=== PATIENT | female | born 1950 | race Caucasian/White ===

== ENCOUNTER 2019-11-13 15:09 | Emergency (ER) | payer MEDICARE, MEDICAID, SELFPAY ==
--- NOTE | ~2019-11-13 | XR_ITS ---
EXAMINATION: XR hip RT min 3V w AP pelvis EXAM DATE: 11/13/2019 16:18 INDICATION: Initial encounter following injury, with pain of the pelvis, right hip. TECHNIQUE: Right hip frontal, crosstable lateral and 'frog-leg' projections for interpretation. Front al projection pelvis. There is no prior study for comparison. FINDINGS: Status post total right hip arthroplasty. There are some screw tracks identified along the mid aspect of the femur from prior hardware. There are no acute fractures or dislocations identified. There is no subcutaneous gas. The soft tissue is unremarkable. IMPRESSION: Intact right hip arthroplasty. Reviewed, dictated and finalized at location A.
--- NOTE | ~2019-11-13 | CT_ITS ---
EXAMINATION: CT brain wo con, CT cervical spine wo con EXAM DATE: 11/13/2019 16:06 INDICATION: Fall, head injury, neck pain. TECHNIQUE: Spiral CT of the head was performed without contrast. Axial, coronal and sagittal images were reviewed. Spiral CT of the cervical spine was performed without contrast. Axial images were rev iewed. Coronal and sagittal reformatted images were also reviewed. The dose-length product (DLP) fo r this examination was 605.33 (accession [id number]), 218.79 (accession [id number]) mGy-cm. The exposure was tailored according to patient size, and iterative reconstruction (ASIR) was used as additional dose reduction technique. There is no prior study for comparison. FINDINGS: HEAD CT: There is no acute intraparenchymal hemorrhage. No evidence of intraparenchymal brain mass l esion. No evidence of acute infarction. There is moderate prominence of the sulci and ventricles rel ated to cerebral atrophy. There is intracranial carotid arteriosclerosis. There is no mass effect or midline shift. There is no obstructive hydrocephalus suspected. There are no extra-axial collect ions. There are no acute calvarial fractures. The orbits are unremarkable. Soft tissue is unremark able. The visualized sinuses and mastoid air cells are well aerated. CERVICAL CT: There is no evidence of acute cervical fracture. The odontoid process is intact. Pre- dens space is normal. Prevertebral soft tissue is normal. There are no soft tissue abnormalities id entified. There is no disc space widening or traumatic vertebral body subluxation suspected. There is moderate disc disease from C3 through C7. Up to moderate arthropathy. A detailed level by level e valuation of spondylosis can be added as addendum if requested. IMPRESSION: 1. No acute intracranial or cervical findings. 2. Moderate cervical spondylosis. Reviewed, dictated and finalized at location A. IMPRESSION: 1. No acute intracranial or cervical findings. 2. Moderate cervical spondylosis.
--- NOTE | ~2019-11-13 | XR_ITS ---
EXAMINATION: XR chest 2V EXAM DATE: 11/13/2019 16:19 INDICATION: Right upper anterior chest wall pain after fall. TECHNIQUE: Frontal and lateral projections of the chest obtained and reviewed. Comparison is made to prior examination from 04/12/2013. FINDINGS: The lungs are clear. There are no pleural effusions. The cardiomediastinal silhouette is within normal limits. There is no pneumothorax suspected. There are bony degenerative changes. IMPRESSION: No acute cardiopulmonary findings. Reviewed, dictated and finalized at location A.
--- NOTE | ~2019-11-13 | XR_ITS ---
EXAMINATION: XR ribs RT 2V EXAM DATE: 11/13/2019 17:01 INDICATION: Initial encounter following injury, with pain of the right ribs. TECHNIQUE: Frontal projection of the upper right ribs, frontal projection of the lower right ribs, ob lique projection of the right ribs. FINDINGS: There is contour distortion to the right 10th rib anterolaterally, probably age indetermina te fracture. No other suspicious findings. Consider educating patient that even if there is a radiogr aphically occult nondisplaced rib fracture, there is no specific treatment other than to refrain from activity that prevents healing. IMPRESSION: Probable age indeterminate right 10th rib fracture anterolaterally. Reviewed, dictated and finalized at location A. IMPRESSION: Probable age indeterminate right 10th rib fracture anterolaterally .
[2019-11-13 15:10] VITALS: BP 117/76; PULSE 96; RESP 22; TEMP 36.6; O2SAT 97
--- NOTE | 2019-11-13 15:32 | PC.NURSE ---
pt placed in C collar after triage for precautions before CT scans.
[2019-11-13] MEDS: ACETAMINOPHEN 500 MG TABLET 1000 MG PO (17:22)
--- NOTE | 2019-11-13 18:10 | ED.FALL ---
HPI - Fall General Chief Complaint: Fall Stated Complaint: fall Time Seen by Provider: 11/13/19 16:39 Source: patient Mode of arrival: ambulatory Limitations: no limitations History of Present Illness HPI Narrative: This is a 69 year old female that presents to the ER for a fall yesterday. Reports she was walking her dog and the dog jerked the leash. Reports she fell onto her right side. Reports since she has had neck pain the is on the right side and feels stiff. Also reports right sided rib pain and right hip pain. Also reports hitting her head. Denies prodromal symptoms, loss of consciousness, vision changes, vomiting, shortness of breath, weakness or numbness. Related Data Allergies Allergy/AdvReac Type Severity Reaction Status Date / Time influenza virus vaccine, Allergy Severe Hives / Verified 11/13/19 17:02 specific Red Face NSAIDS (Non-Steroidal Allergy Mild Unknown Verified 11/13/19 17:02 Anti-Inflamma INFLAMMATORY DRUGS Allergy Unknown TONGUE Uncoded 11/13/19 17:02 SWELLS Review of Systems Review of Systems: Narrative: CONSTITUTIONAL: Denies fever EYES: Denies visual changes CARDIOVASCULAR: Reports chest pain RESPIRATORY: Denies dyspnea. GASTROINTESTINAL: Denies vomiting MUSCULOSKELETAL: Reports joint pain and myalgia. Denies back pain NEUROLOGIC: Denies headache, numbness, or weakness. All systems reviewed & are unremarkable except as noted in HPI and below PMFSH Past Medical History Medical History (Updated 11/13/19 @ 18:20 by Lindsey Carrillo PA-C) History of diabetes mellitus History of hyperlipidemia History of hypertension Family History Family History (Updated 02/17/14 @ 07:13 by DOCTOR UNKNOWN) Mother Family history of Alzheimer's disease Father Family history of emphysema Social History Social History Smoking status: Never smoker Second hand tobacco smoke exposure: Yes Alcohol intake: never Gender identity (if verbalized by the patient): Female Exam Narrative: Exam Narrative: GENERAL: Well-appearing, well-nourished, and in no acute distress. HEAD: Normocephalic, atraumatic. EYES: PERRLA and EOMI. ENT: Nares clear, no rhinorrhea or epistaxis. Mucous membranes moist. Oropharynx without tonsillar hypertrophy exudate or other lesions. Bilateral TMs pearly colón non-bulging NECK: Supple. No adenopathy or masses. No midline spinal tenderness CHEST: Clear to auscultation. No respiratory distress. No wheezes rales or rhonchi. Tender palpation of right anterior/lateral chest HEART: Regular rate and rhythm. No murmur heard. Normal peripheral pulses. BACK: No midline spinal tenderness EXTREMITIES: Normal range of motion. No edema or obvious deformity. Strength equal in bilateral upper and lower extremities SKIN: Warm, dry, no rash. NEURO: No focal deficits. Alert and oriented x3. Cranial nerves II through XII grossly intact PSYCH: Normal mood and affect Course Vital Signs Vital signs: Vital Signs Temperature 97.9 F 11/13/19 15:10 Pulse Rate 96 11/13/19 15:10 Respiratory Rate 22 H 11/13/19 15:10 Blood Pressure 117/76 11/13/19 15:10 Pulse Oximetry 97 11/13/19 15:10 Temperature 97.9 F 11/13/19 15:10 Pulse Rate 96 11/13/19 15:10 Respiratory Rate 22 H 11/13/19 15:10 Blood Pressure 117/76 11/13/19 15:10 Pulse Oximetry 97 11/13/19 15:10 MDM - Fall MDM Narrative Medical decision making narrative: Patient presents the emergency department after a fall yesterday with neck pain, right-sided rib pain, and right hip pain. Also reports a head injury. Denies loss of consciousness. Patient is neurologically intact. CT scan of the brain and cervical spine is without acute changes. Right hip/pelvis x-rays without acute findings. Right-sided rib/chest x-ray shows an age-indeterminate right 10th rib fracture anterior laterally. Patient given incentive spirometer. She was given a dose of Valium with improvement in neck pain. Patient was instr
[2019-11-13 18:23] VITALS: BP 132/80; PULSE 80; RESP 20; TEMP 36.7; O2SAT 99
== END 2019-11-13 18:24 | disposition home or self-care (01) ==
PROVIDERS: Emergency Provider Emergency Medicine
DX: M54.2 Cervicalgia (principal); S22.31XA Fracture of one rib, right side, initial encounter for closed fracture; E11.9 Type 2 diabetes mellitus without complications; E78.5 Hyperlipidemia, unspecified; I10 Essential (primary) hypertension; M47.812 Spondylosis without myelopathy or radiculopathy, cervical region; Y93.K1 Activity, walking an animal; Z79.84 Long term (current) use of oral hypoglycemic drugs; Z96.641 Presence of right artificial hip joint; W18.39XA Other fall on same level, initial encounter
CPT/HCPCS: 70450; 71046; 71100; 72125; 73502; 96372; 99284; A9270; J3360; L0140

== ENCOUNTER 2019-11-16 08:31 | Inpatient (IN) | payer MEDICARE, MEDICAID, SELFPAY ==
[2019-11-16] VITALS (21 sets, daily range): BP systolic 100–135; BP diastolic 57–87; PULSE 76–97; RESP 11–28; TEMP 36.9–37.3; O2SAT 91–100
--- NOTE | ~2019-11-16 | XR_ITS ---
EXAMINATION: XR knee RT min 4V DATE: 11/16/2019 09:35 INDICATION: Right knee injury. TECHNIQUE: 4 views of right knee were obtained. COMPARISON: Right knee radiographs 07/13/2013 FINDINGS: There is a total right knee arthroplasty in near-anatomic alignment. No periprosthetic luce ncy to suggest loosening or infection. No acute fracture. There is an old healed fracture deformity o f distal femoral metaphysis with malunion. Osteopenia is noted. No knee joint effusion. IMPRESSION: 1. Total right knee arthroplasty in near-anatomic alignment. 2. Old healed fracture of distal femoral metaphysis with malunion. Reviewed, dictated and finalized at location A.
--- NOTE | ~2019-11-16 | XR_ITS ---
XR lumbar spine 2-3V 11/16/2019 09:36 Indication: Low back pain after fall Procedure: 3 views lumbar spine Comparison: 07/13/2013 Findings: Mild dextroscoliosis centered at L2. There is disc narrowing at L2-3 through L5-S1. There a re fusion changes at L5-S1, stable. There has been progression of loss of disc height at L2-3, L3-4 a nd L4-5. There is grade 1 spondylolisthesis at L4-5. No acute fracture or traumatic malalignment. The re is right total hip arthroplasty. Impression: 1: Progression of moderate-severe lumbar spondylosis with spinal fusion at L5-S1. Reviewed, dictated and finalized at location A. Impression: 1: Progression of moderate-severe lumbar spondylosis with spinal fusion at L5-S 1.
--- NOTE | ~2019-11-16 | XR_ITS ---
[[id number] ] INDICATION: Right rib pain after fall TECHNIQUE: Frontal projection of the upper right ribs, frontal projection of the lower right ribs, ob lique projection of all the right ribs, frontal inspiratory chest x-ray for interpretation. FINDINGS: There are no displaced rib fractures identified. There are no soft tissue abnormality see n. The there is right basilar airspace disease which may represent atelectasis or developing pneumon ia. IMPRESSION: 1:No displaced rib fractures. 2:Right basilar airspace disease, atelectasis versus pneumonia. Reviewed, dictated and finalized at location A.
--- NOTE | ~2019-11-16 | CT_ITS ---
EXAMINATION: CT abdomen pelvis wo con DATE: 11/16/2019 13:25 INDICATION: Abdominal pain. TECHNIQUE: Computed tomography (CT) of the abdomen and pelvis was performed without intravenous contr ast. Automated exposure control and iterative reconstruction technique were employed. The dose-length product was 567.13 mGy-cm. COMPARISON: CT abdomen and pelvis 12/01/2008 FINDINGS: The visualized portions of the lung bases demonstrate mild atelectasis and mild chronic int erstitial lung disease. No pleural effusion. The heart size is normal. No pericardial effusion. There is a moderate-sized sliding hiatal hernia. The liver, gallbladder, pancreas, adrenal glands, and kid neys are normal. There are changes of splenectomy. There are no dilated loops of bowel. The appendix is not visualized. There are no pathologically enlarged lymph nodes. There is no free intraperitoneal fluid. There is a total right hip arthroplasty. There are changes of anterior and posterior fusion p rocedures at L5-S1. There is severe lumbar spondylosis. IMPRESSION: 1. Moderate-sized sliding hiatal hernia. 2. Mild chronic interstitial lung disease. Reviewed, dictated and finalized at location A.
--- NOTE | ~2019-11-16 | XR_ITS ---
EXAMINATION: XR knee LT min 4V DATE: 11/16/2019 09:35 INDICATION: Left knee injury. TECHNIQUE: 4 views of left knee were obtained. COMPARISON: Left knee radiographs 10/28/2013 FINDINGS: Bone alignment is normal. No fracture. There is mild osteoarthritis of medial and patellofe moral compartments and moderate osteoarthritis of lateral compartment. No knee joint effusion. IMPRESSION: 1. Moderate left knee osteoarthritis. Reviewed, dictated and finalized at location A.
--- NOTE | ~2019-11-16 | CT_ITS ---
EXAMINATION: CT brain wo con DATE: 11/16/2019 09:11 INDICATION: Head injury. TECHNIQUE: Computed tomography (CT) of the head was performed without intravenous contrast. The mA wa s adjusted according to patient size. Iterative reconstruction technique was employed. The dose-lengt h product was 605.33 mGy-cm. COMPARISON: Head CT 11/13/2019 FINDINGS: There is no intracranial hemorrhage, acute ischemic infarct, or intracranial mass lesion. T he ventricles are normal in size. There is mild mucosal thickening in the ethmoid sinuses. The mastoi d air cells are normal. IMPRESSION: 1. Normal brain. Reviewed, dictated and finalized at location A. IMPRESSION: 1. Normal brain.
--- NOTE | 2019-11-16 08:36 | ECG_ITS ---
Measurements Intervals [place] Rate: 94 P: 47 IA: 163 QRS: 52 QRSD: 82 T: 61 QT: 340 QTc: 427 Interpretive Statements SINUS RHYTHM BASELINE ARTIFACT- II, III, AVF, V3-V6 BORDERLINE ECG Electronically Signed On 11-16-2019 14:19:55 CDT by Ephraim Hernandez D.O.
--- NOTE | 2019-11-16 08:56 | PC.NURSE ---
Pt states she had 5 falls last night and has all over pain. Pt states she has rib pain causing SOB. Pt states has abrasions to bilateral knees and L elbow. Pt states she has VAZQUEZ. Pt states she has been having increased falls over the last few weeks. Pt states she walks with cane or walker. Pt states she hit her head and had LOC.
--- NOTE | 2019-11-16 08:57 | ED.FALL ---
HPI - Fall General Chief Complaint: Fall Stated Complaint: KEITH FALLS - HIT HEAD Time Seen by Provider: 11/16/19 08:34 Source: RN notes reviewed History of Present Illness HPI Narrative: Patient presents emergency department from home for frequent falls. Patient states that over the past several days she has had several falls at home. She states that last night she had several falls after mopping her floor and then again fell in the bathroom. States she initially had to lay in the bathtub for a while but then was able to get herself out she notes pain to her bilateral knees as well as her left elbow and her head. Patient states that secondary to these falls and generalized weakness she came to the emergency department today she denies any recent illness denies any fevers or chills chest pain shortness of breath abdominal pain nausea vomiting or any other symptoms Related Data Home Medications Medication Instructions Recorded Confirmed atorvastatin 80 mg PO HS 11/16/19 11/16/19 clonazepam 1 mg PO TID 11/16/19 11/16/19 cyclobenzaprine 10 mg PO TID PRN 11/16/19 11/16/19 duloxetine 20 mg PO DAILY 11/16/19 11/16/19 lisinopril-hydrochlorothiazide 1 tablet PO BID 11/16/19 11/16/19 metformin 1,000 mg PO BID 11/16/19 11/16/19 omeprazole 40 mg PO BID 11/16/19 11/16/19 oxycodone-acetaminophen 1 tablet PO Q4H PRN 11/16/19 11/16/19 tramadol 50 mg PO PRN 11/16/19 11/16/19 Allergies Allergy/AdvReac Type Severity Reaction Status Date / Time influenza virus vaccine, Allergy Severe Hives / Verified 11/13/19 17:02 specific Red Face NSAIDS (Non-Steroidal Allergy Mild Unknown Verified 11/13/19 17:02 Anti-Inflamma INFLAMMATORY DRUGS Allergy Unknown TONGUE Uncoded 11/13/19 17:02 GARY Review of Systems Review of Systems: Narrative: Gen.: Denies fevers or chills Eyes: Denies eye pain or visual change ENT: Denies congestion Respiratory: Denies shortness of breath or cough CV: Denies chest pain or palpitations GI: Denies abdominal pain nausea, emesis or diarrhea denies burning, urgency, frequency or hematuria Musculoskeletal: See HPI Neuro: Denies numbness, tingling, reports weakness and frequent falls Skin: Denies rash Except as documented, all other systems reviewed and negative [facility] Past Medical History Medical History History of diabetes mellitus History of hyperlipidemia History of hypertension Family History Family History (Updated 02/17/14 @ 07:13 by DOCTOR UNKNOWN) Mother Family history of Alzheimer's disease Father Family history of emphysema Social History Social History Smoking status: Never smoker Second hand tobacco smoke exposure: Yes Alcohol intake: never Substance use: current Substance use type: marijuana Other substance usage details: For back pain once per week Gender identity (if verbalized by the patient): Female Spiritual care concerns: No Exam Narrative: Exam Narrative: APPEARANCE: No acute distress, nontoxic, resting in bed EYES: EOMI, Marcello HEENT: Normocephalic, atraumatic, oral mucosa dry Neck: Supple, no midline tenderness palpation full range of motion without pain RESPIRATORY: No respiratory distress Clear to auscultation bilaterally with no rhonchi wheezing or rales. CARDIOVASCULAR: Regular rate and rhythm without murmurs rubs or gallops. ABDOMINAL: Soft, nontender, nondistended, no rebound or guarding MUSCULOSKELETAl: Moves all extremities. No clubbing, cyanosis or edema. Tender palpation of the bilateral anterior knees with ecchymosis present no tenderness of bilateral hips or ankles, dorsalis pedis pulse 2+, mild tenderness over left elbow with full range of motion no tenderness of left wrist or shoulder radial pulse 2+ NEURO: Awake and alert x 3. Following commands, speech normal, no focal deficits SKIN:: Warm, dry. Skin abrasion over left lateral
[2019-11-16 09:09] LABS: Basophils Absolute Auto 0.1 K/mm3 (0.0-0.1); Basophils Percent Auto 0.5 % (0.2-1.2); Eosinophils Percent Auto 0.1 % (0-4.4); Hematocrit 37.6 % (37.0-47.0); Hemoglobin 12.5 g/dL (12.0-15.0); Immature Granulocyte Absolute 0.16 K/mm3 (0.00-0.031); Immature Granulocyte Percent A 0.7 % (0-0.5); Lymphocytes Absolute Auto 2.88 K/mm3 (0.9-3.2); Lymphocytes Percent Auto 13.1 % (18.3-44.2); Mean Corpuscular HGB Conc 33.2 g/dl (32-36); Mean Corpuscular Hemoglobin 30.4 pg (26-34); Mean Corpuscular Volume 91.5 fl (80-100); Mean Platelet Volume 10.1 fl (7.4-10.4); Monocytes Percent Auto 9.2 % (2.6-8.5); Neutrophils Absolute Auto 16.8 K/mm3 (1.3-6.7); Neutrophils Percent Auto 76.4 % (45.5-73.1); Platelet Count Result 487 k/mm3 (150-375); Red Blood Count 4.11 M/mm3 (4.2-5.4); White Blood Count 21.9 K/mm3 (4.5-10.0)
[2019-11-16 09:23] LABS: Partial Thromboplastin Time 23.6 SECONDS (22.3-36.8); Prothrombin Time 12.5 Seconds (11.1-14.7)
[2019-11-16 09:39] LABS: Albumin Level 4.5 g/dL (3.5-5.1); Alkaline Phosphatase 140 U/L (38-126); Aspartate Amino Transferase 64 U/L (14-36); Bilirubin,Total 0.4 mg/dL (0.2-1.3); Blood Urea Nitrogen 12 mg/dL (7-17); Carbon Dioxide 22 mmol/L (22-30); Chloride 101 mmol/L (98-107); Estimated CRCL calculation 67 ml/min; Estimated Glomerular Filt Rate > 60; Glucose 198 mg/dL (65-105); Potassium 3.9 mmol/L (3.4-5.0); Sodium 138 mmol/L (137-145)
[2019-11-16 09:56] LABS: Alanine Aminotransferase 31 U/L (4-35)
[2019-11-16 10:48] LABS: Creatine Kinase 774 U/L (30-135)
[2019-11-16 11:34] LABS: Add Urine Microscopic? NO; Appearance Urine Clear (Clear); Bilirubin Urine Negative (Negative); Blood Urine Negative (Negative); Color Urine Yellow (Yellow); Glucose Urine UA Negative (Negative); Ketones Urine Negative (Negative); Leukocyte Esterase Ur Negative LEU/UL (Negative); Mucus Urine Rare /lpf; Nitrate Urine Negative (Negative); Protein Urine Negative (Negative); Specific Grav Ur 1.016 (1.001-1.035); Squamous Epithelial Cell Urine Rare /hpf (Few); Urobilinogen Urine Negative mg/dL (<2.0); WBC Urine 0-3 /hpf
[2019-11-16 12:14] LABS: Lactic Acid Reflex 4.1 mmol/L (0.7-2.1)
[2019-11-16] MEDS: SODIUM CHLORIDE 0.9% IV 1,000 ML 999 ML IV CONT (12:55)
[2019-11-16] MEDS: SODIUM CHLORIDE 0.9% IV 1,000 ML 125 ML IV CONT ×2 (14:35→23:06)
[2019-11-16 14:54] LABS: Reflex Lactic Acid Yes or No Add Lactic
--- NOTE | 2019-11-16 14:58 | ADMGEN ---
This patient, Li De Los Santos, was admitted to [facility] Surg Room 332-02. Patient/family oriented to hospital policies and general routines including ID bracelet, bed and alarms, visiting hours, pain management, procedures, bathroom and other care routines, personal items, smoking policy, room service/diet, and visiting hours. Valuables list has been completed. Information on how to activate the Rapid Response Team has been discussed. Patient/Family are encouraged to report perceived risks to care and to ask questions if they do not understand what they are told or what they should do.
[2019-11-16 15:34] LABS: Lactic Acid 3.3 mmol/L (0.7-2.1)
--- NOTE | 2019-11-16 18:04 | PM.IMHP ---
H&P: HPI History of Present Illness Chief complaint: Severe sepsis community acquired pneumonia gait in Narrative: Li De Los Santos is a 69 year old female who lives at independent living alf facility. The patient came to the emergency room today because of frequent falls. Over the past several days she has had several falls at home. She denies having any fever but states that she had some chills. She had a nonproductive cough. 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 Patient stated that she mops up her dogs meds and she fell on the floor and fell again in the bathroom today. She has had initially did she late in the bathtub for a little bit and then she was unable to get herself up out of the bathtub she is very weak. She is having difficulty leaning forward and getting up. She complained of her knees hurting in her left elbow and her head. She has some generalized weakness. She is on chronic pain medication for chronic back pain. Her lactic was 4.1 and then 3.3. Random glucose 198. Total creatinine kinase 774. Patient was given IV fluids for the elevated lactic and started on Rocephin and azithromycin. Date of service 11/16/2019 Review of Systems Review of Systems: All systems reviewed & are unremarkable except as noted in HPI and below Constitutional: Constitutional: Reports as per HPI and Reports no additional constitutional complaints Eyes: Eyes: Reports as per HPI and Reports no additional eye complaints ENT: Reports system reviewed and no additional complaints, except as documented and Reports Normal hearing present Cardiovascular: Cardiovascular: Reports no additional cardiovascular complaints Respiratory: Respiratory: Reports no additional respiratory complaints and Reports no additional respiratory complaints Gastrointestinal: Gastrointestinal: Reports as per HPI and Reports no additional gastrointestinal complaints Musculoskeletal: Musculoskeletal: Reports no additional musculoskeletal complaints Integumentary/Breasts: Skin/Breast: Reports system reviewed and no additional complaints, except as docu and Reports as per HPI Neurologic: Reports system reviewed and no additional complaints, except as documented, Reports as per HPI and Reports Normal hearing present Psychiatric: Psychiatric: Reports no additional psychiatric complaints and Reports as per HPI Endocrine: Endocrine: Reports no additional endocrine complaints Hematologic/Lymphatic: Hematologic/Lymphatic: Reports no additional hematologic/lymphatic complaints Allergic/Immunologic: Allergic/Immunologic: Reports no additional allergic/immunologic complaints [facility] Past Medical History Medical History (Updated 05/26/20 @ 18:37 by Kimberlee Camejo NP) Anxiety Chronic pain Depression DM2 (diabetes mellitus, type 2) History of diabetes mellitus History of hyperlipidemia History of hypertension Hypertension Surgical History Surgical History (Updated 11/16/19 @ 18:23 by Kimberlee Camejo NP) H/O arthroscopy of left knee H/O hernia repair H/O splenectomy H/O: hysterectomy History of back surgery X3 History of section, classical History of left shoulder replacement History of total right knee replacement (TKR) Family History Family History (Updated 11/16/19 @ 18:24 by Kimberlee Camejo NP) Mother Family history of Alzheimer's disease Heart disease Father Family history of emphysema COPD (chronic obstructive pulmonary disease) Social History Social History (Updated 11/16/19 @ 18:28 by Kimberlee Camejo NP) Social History: The patient was never . And she had twin boys. She lives in a alf independent Living. 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 She is a full code. She never smoked. Does not use any alcohol or illicit drugs. However the patient states that she uses medical marijuana. She is disabled Smoking statu
[2019-11-16] MEDS: CLONAZEPAM 0.5 MG TAB 1 MG PO (18:55)
[2019-11-16] MEDS: PANTOPRAZOLE 40 MG TABLET PO (20:22)
[2019-11-16] MEDS: ENOXAPARIN 40 MG/0.4 ML SYRINGE SUB-Q (20:22)
[2019-11-16] MEDS: lisinopriL 20 MG TABLET PO (20:23)
[2019-11-16] MEDS: ATORVASTATIN 40 MG TABLET 80 MG PO (20:23)
[2019-11-16] MEDS: hydroCHLOROthiazide 12.5 MG CAPSULE PO (20:23)
[2019-11-17] VITALS (11 sets, daily range): BP systolic 100–120; BP diastolic 58–82; PULSE 68–85; RESP 16–20; TEMP 36.4–37.1; O2SAT 91–95
[2019-11-17] MEDS: SODIUM CHLORIDE 0.9% IV 1,000 ML 125 ML IV CONT ×2 (05:32→13:08)
[2019-11-17 05:55] LABS: Hemoglobin A1C 7.2 % (<5.7)
[2019-11-17 05:59] LABS: Basophils Absolute Auto 0.1 K/mm3 (0.0-0.1); Basophils Percent Auto 0.8 % (0.2-1.2); Eosinophils Absolute Auto 0.3 K/mm3 (0-0.3); Eosinophils Percent Auto 3.1 % (0-4.4); Immature Granulocyte Absolute 0.03 K/mm3 (0.00-0.031); Immature Granulocyte Percent A 0.3 % (0-0.5); Lymphocytes Absolute Auto 3.04 K/mm3 (0.9-3.2); Lymphocytes Percent Auto 27.8 % (18.3-44.2); Mean Corpuscular HGB Conc 33.3 g/dl (32-36); Mean Corpuscular Hemoglobin 30.1 pg (26-34); Mean Corpuscular Volume 90.4 fl (80-100); Mean Platelet Volume 9.5 fl (7.4-10.4); Monocytes Absolute Auto 1.3 K/mm3 (0.1-0.6); Monocytes Percent Auto 12.1 % (2.6-8.5); Neutrophils Absolute Auto 6.1 K/mm3 (1.3-6.7); Neutrophils Percent Auto 55.9 % (45.5-73.1); Platelet Count Result 425 k/mm3 (150-375); Red Blood Count 3.65 M/mm3 (4.2-5.4); Red Cell Distribution Width 14.1 % (11.5-14.5)
[2019-11-17 06:07] LABS: Alanine Aminotransferase 19 U/L (4-35); Albumin Level 3.4 g/dL (3.5-5.1); Alkaline Phosphatase 102 U/L (38-126); Aspartate Amino Transferase 40 U/L (14-36); Bilirubin,Total 0.5 mg/dL (0.2-1.3); Blood Urea Nitrogen 8 mg/dL (7-17); Carbon Dioxide 27 mmol/L (22-30); Chloride 104 mmol/L (98-107); Estimated CRCL calculation 67 ml/min; Estimated Glomerular Filt Rate > 60; Glucose 143 mg/dL (65-105); Potassium 3.7 mmol/L (3.4-5.0); Sodium 135 mmol/L (137-145)
[2019-11-17] MEDS: CLONAZEPAM 0.5 MG TAB 1 MG PO (08:15)
[2019-11-17] MEDS: PANTOPRAZOLE 40 MG TABLET PO ×2 (08:16→20:06)
[2019-11-17] MEDS: hydroCHLOROthiazide 12.5 MG CAPSULE PO ×2 (08:16→20:04)
[2019-11-17] MEDS: DULOXETINE HCL 20 MG CAPSULE.DR PO (08:16)
[2019-11-17] MEDS: lisinopriL 20 MG TABLET PO ×2 (08:16→20:07)
[2019-11-17 08:29] LABS: Glucose Point of Care 127 (65-105)
--- NOTE | 2019-11-17 09:51 | PM.IMPN ---
Progress Note: A&P Assessment and Plan (1) Community acquired pneumonia: Code(s): J18.9 - Pneumonia, unspecified organism Status: Acute Assessment and Plan: Chest x-ray reveals right basilar airspace disease. Patient endorses occasional nonproductive cough. She is afebrile. She has very mild leukocytosis. Her lactic acid is elevated at 3.3. She does not meet sirs criteria for sepsis as vitals are stable. Continue with azithromycin and ceftriaxone. Blood cultures are pending. Sputum cultures have been ordered but on collected. Continue albuterol as needed Continue gentle IV fluids (2) Suspected COVID-19 virus infection: Code(s): Z20.828 - Contact with and (suspected) exposure to other viral communicable diseases Status: Acute Assessment and Plan: Given symptoms and patient is a resident of a intermediate facility, she has been tested for COVID-19. She is afebrile and maintaining adequate oxygen saturation on room air Continue isolation precautions Await results of COVID-19 test Continue azithromycin and ceftriaxone Continue supportive care as above Proceed with IV fluids cautiously and monitor respiratory status Monitor CXR for progression (3) Lactic acidosis: Code(s): E87.2 - Acidosis Status: Acute Assessment and Plan: At presentation, her lactic acid was elevated at 4.1. It had decreased to 3.3 upon repeat on 11/16/2019. Patient is taking metformin which may have contributed. She was also likely dehydrated upon presentation, but appears euvolemic on exam at this time. She does not meet criteria for sepsis. She does not have elevated anion gap. Continue gentle IV fluids Continue to hold metformin Continue to monitor lactic acid level. (4) Fall: Qualifiers: Encounter type: initial encounter Qualified Code(s): W19.XXXA - Unspecified fall, initial encounter Code(s): W19.XXXA - Unspecified fall, initial encounter Status: Acute Assessment and Plan: Patient has had multiple falls. She was evaluated in this facility on 11/12 for a fall. She reports she fell a total of 5 times on 11/16/2019. She hit her head during her fall. She complains of knee pain and back pain. Head CT was normal. She is alert and oriented x4 with no altered mental status noted and nonfocal neuro exam. Bilateral knees were x-rayed with no acute findings. Lumbar spine x-ray revealed moderate to severe lumbar spondylosis with no acute fracture or trauma. She complains of weakness. PT and OT to evaluate and treat pending results of COVID test. Input is appreciated. Continue tramadol for moderate pain and oxycodone-acetaminophen for severe pain Supportive care including ice and heat as needed (5) Chronic pain: Code(s): G89.29 - Other chronic pain Status: Chronic Assessment and Plan: Patient has a history of chronic musculoskeletal pain and has had several surgeries to include knee replacement and spinal fusion. She has a home pain regimen including oxycodone-acetaminophen, tramadol, cyclobenzaprine, and Cymbalta. Continue pain scale as above. Continue cyclobenzaprine as needed and Cymbalta scheduled Continue supportive care as above (6) Hypertension: Qualifiers: Hypertension type: essential hypertension Qualified Code(s): I10 - Essential (primary) hypertension Code(s): I10 - Essential (primary) hypertension Status: Chronic Assessment and Plan: Blood pressures were reviewed and are acceptable. Blood pressure evaluated today and stable at 112/65. Continue with lisinopril and hydrochlorothiazide. (7) DM2 (diabetes mellitus, type 2): Code(s): E11.9 - Type 2 diabetes mellitus without complications Status: Acute Assessment and Plan: A1c on 11/17/2019 is 7.2. Blood sugars were reviewed. Blood sugar evaluated today and stable at 127. Continue Acc
--- NOTE | 2019-11-17 10:42 | PCPTNOTE ---
Hold PT - per PA-C - awaiting on COVID 19 results.
--- NOTE | 2019-11-17 10:43 | PCOTNOTE ---
Hold OT evaluation per PA until COVID testing results are in. Will attempt OT evaluation at later time.
[2019-11-17 11:08] LABS: Lactic Acid 1.4 mmol/L (0.7-2.1)
[2019-11-17] MEDS: INSULIN ASPART (*BKC) 100 UNITS/ML SUB-Q (12:07)
[2019-11-17 13:08] LABS: Glucose Point of Care 216 (65-105)
[2019-11-17 14:16] LABS: SARS-CoV-2 RNA PCR Negative
[2019-11-17 16:23] LABS: Glucose Point of Care 85 (65-105)
[2019-11-17] MEDS: ATORVASTATIN 40 MG TABLET 80 MG PO (20:06)
[2019-11-17] MEDS: ENOXAPARIN 40 MG/0.4 ML SYRINGE SUB-Q (20:07)
[2019-11-17 21:04] LABS: Glucose Point of Care 132 (65-105)
[2019-11-18] VITALS (7 sets, daily range): BP systolic 112–133; BP diastolic 64–82; PULSE 69–91; RESP 20; TEMP 36.4–36.7; O2SAT 91–96
[2019-11-18] MEDS: SODIUM CHLORIDE 0.9% IV 1,000 ML 125 ML IV CONT (00:01)
[2019-11-18 06:06] LABS: Basophils Absolute Auto 0.1 K/mm3 (0.0-0.1); Basophils Percent Auto 1.3 % (0.2-1.2); Eosinophils Absolute Auto 0.7 K/mm3 (0-0.3); Eosinophils Percent Auto 7.3 % (0-4.4); Hematocrit 32.5 % (37.0-47.0); Hemoglobin 10.6 g/dL (12.0-15.0); Immature Granulocyte Absolute 0.02 K/mm3 (0.00-0.031); Immature Granulocyte Percent A 0.2 % (0-0.5); Lymphocytes Absolute Auto 2.85 K/mm3 (0.9-3.2); Lymphocytes Percent Auto 30.5 % (18.3-44.2); Mean Corpuscular HGB Conc 32.6 g/dl (32-36); Mean Corpuscular Hemoglobin 30.1 pg (26-34); Mean Corpuscular Volume 92.3 fl (80-100); Mean Platelet Volume 9.3 fl (7.4-10.4); Monocytes Absolute Auto 1.3 K/mm3 (0.1-0.6); Neutrophils Absolute Auto 4.4 K/mm3 (1.3-6.7); Neutrophils Percent Auto 46.7 % (45.5-73.1); Platelet Count Result 404 k/mm3 (150-375); Red Blood Count 3.52 M/mm3 (4.2-5.4); Red Cell Distribution Width 14.2 % (11.5-14.5); White Blood Count 9.3 K/mm3 (4.5-10.0)
[2019-11-18 06:20] LABS: Alanine Aminotransferase 17 U/L (4-35); Albumin Level 3.1 g/dL (3.5-5.1); Alkaline Phosphatase 102 U/L (38-126); Aspartate Amino Transferase 41 U/L (14-36); Bilirubin,Total 0.4 mg/dL (0.2-1.3); Blood Urea Nitrogen 9 mg/dL (7-17); Calcium 7.8 mg/dL (8.4-10.2); Carbon Dioxide 29 mmol/L (22-30); Chloride 106 mmol/L (98-107); Creatine Kinase 365 U/L (30-135); Estimated CRCL calculation 58 ml/min; Estimated Glomerular Filt Rate > 60; Glucose 126 mg/dL (65-105); Potassium 3.5 mmol/L (3.4-5.0); Sodium 136 mmol/L (137-145)
[2019-11-18 06:23] LABS: Lactic Acid 0.9 mmol/L (0.7-2.1)
[2019-11-18 08:28] LABS: Glucose Point of Care 123 (65-105)
[2019-11-18] MEDS: SODIUM CHLORIDE 0.9% IV 1,000 ML 75 ML IV CONT (09:19)
[2019-11-18] MEDS: PANTOPRAZOLE 40 MG TABLET PO (09:21)
[2019-11-18] MEDS: lisinopriL 20 MG TABLET PO (09:21)
[2019-11-18] MEDS: hydroCHLOROthiazide 12.5 MG CAPSULE PO (09:21)
[2019-11-18] MEDS: DULOXETINE HCL 20 MG CAPSULE.DR PO (09:21)
[2019-11-18 12:16] LABS: Glucose Point of Care 119 (65-105)
[2019-11-18] MEDS: cefTRIAXone 1 GM VIAL IM (12:57)
[2019-11-18] MEDS: AZITHROMYCIN 250 MG TABLET 500 MG PO (12:57)
--- NOTE | 2019-11-18 15:50 | PM.DS ---
DS: Admitting Diagnosis Admitting Diagnosis Admitting Diagnosis: Pneumonia, unspecified organism DS: Discharge Diagnosis Discharge Diagnosis (1) Community acquired pneumonia: Code(s): J18.9 - Pneumonia, unspecified organism Status: Acute Assessment and Plan: She was treated with IV Ceftriaxone and Azithromycin. She will continue PO Cefdinir to complete a 7 day course and PO Azithromycin to complete a 5 day course. (2) COVID-19 ruled out: Code(s): Z03.818 - Encounter for observation for suspected exposure to other biological agents ruled out Status: Acute Assessment and Plan: She tested negative for COVID-19 on 11/16/19. (3) Lactic acidosis: Code(s): E87.2 - Acidosis Status: Acute Assessment and Plan: At presentation, her lactic acid was elevated at 4.1. Her CO2 was 22 without elevated anion gap. Lactic had improved to 1.4 and was 0.9 at time of discharge. Metformin was initially held but resumed at discharge. She will get a repeat BMP and lactic in one week and follow up with her PCP. (4) Fall: Qualifiers: Encounter type: initial encounter Qualified Code(s): W19.XXXA - Unspecified fall, initial encounter Code(s): W19.XXXA - Unspecified fall, initial encounter Status: Acute Assessment and Plan: She was evaluated by PT and OT and was consistent with her prior level of function. She did not require any ongoing therapy. We discussed fall precautions. (5) Chronic pain: Code(s): G89.29 - Other chronic pain Status: Chronic Assessment and Plan: Patient has a history of chronic musculoskeletal pain. She will continue her home pain regimen. (6) Hypertension: Qualifiers: Hypertension type: essential hypertension Qualified Code(s): I10 - Essential (primary) hypertension Code(s): I10 - Essential (primary) hypertension Status: Chronic Assessment and Plan: Blood pressures were reviewed and were well controlled on home regimen. Blood pressure was 112/64. (7) DM2 (diabetes mellitus, type 2): Code(s): E11.9 - Type 2 diabetes mellitus without complications Status: Acute Assessment and Plan: A1c on 11/17/2019 was 7.2. Blood sugars were reviewed and at target. She will continue her home glycemic regimen. (8) Anxiety: Code(s): F41.9 - Anxiety disorder, unspecified Status: Chronic Assessment and Plan: Stable during her stay. (9) Depression: Qualifiers: Depression Type: major depressive disorder Major depression recurrence: unspecified whether recurrent Code(s): F32.9 - Major depressive disorder, single episode, unspecified Status: Chronic Assessment and Plan: Stable during her stay. DS: Summary Hospital Course Reason for hospitalization: Fall Hospital Course: Date of admission: 11/16/2019 Date of discharge: 11/18/2019 Li De Los Santos is a 69-year-old female with a PMH significant for type 2 diabetes, HTN, chronic pain, and anxiety who presented to the emergency department on 11/16/2019 from home after having several falls in one evening. She reports a history of frequent falls. She was in her bathroom and fell while mopping the floor and she hit her head at this time. At presentation, WBC 21.9, platelets 487, lactic acid 4.1, no acute findings, bilateral knee x-ray with no acute osseous abnormality, lumbar spine x-ray with moderate to severe lumbar spondylosis with no acute fracture or trauma, and CXR revealing right basilar airspace disease. Additionally she was noted to have bilateral knee abrasion and skin avulsion on left elbow which was cleaned and bandaged. Given her symptoms, she was tested for COVID-19 and was found to be negative. She was admitted to the hospitalist service on 11/16/2019. She was treated for community-acquired pneumonia with IV antibiotics. She remained afebrile a
== END 2019-11-18 13:38 | DRG 194 ==
LOC: ANHED 12:08 → ANH3MEDSUR 13:21
PROVIDERS: Nurse Practitioner; Admitting Provider Family Medicine; Emergency Provider Emergency Medicine; PCP Family Medicine; Visit Provider Physician Assistant
DX: J18.9 Pneumonia, unspecified organism (principal); E87.2 Acidosis; Z20.828 Contact with and (suspected) exposure to other viral communicable diseases; W18.39XA Other fall on same level, initial encounter; G89.29 Other chronic pain; I10 Essential (primary) hypertension; E78.5 Hyperlipidemia, unspecified; D47.3 Essential (hemorrhagic) thrombocythemia; F32.9 Major depressive disorder, single episode, unspecified; F41.9 Anxiety disorder, unspecified; E11.9 Type 2 diabetes mellitus without complications; S80.212A Abrasion, left knee, initial encounter; S80.211A Abrasion, right knee, initial encounter; S51.012A Laceration without foreign body of left elbow, initial encounter
CPT/HCPCS: 36415; 51701; 70450; 71046; 71100; 71101; 72100; 72125; 73502; 73564; 74176; 80053; 81003; 82550; 83036; 83605; 84443; 85025; 85610; 85730; 87040; 87635; 93005; 96365; 96367; 97161; 97165; 99285; A9270; C9803; J0131; J0456; J0696; J1650; J1815; J3360; J7030; L0140; U0003

== ENCOUNTER 2019-12-14 14:54 | Emergency (ER) | payer MEDICARE, MEDICAID, SELFPAY ==
--- NOTE | ~2019-12-14 | CT_ITS ---
EXAMINATION: CTA brain carotid EXAM DATE: 12/14/2019 16:35 INDICATION: Left arm numbness. TECHNIQUE: Noncontrast head CT. Spiral CTA of the carotid arteries was performed with intravenous i njection 100 cc of Omnipaque 350. Axial, coronal, sagittal reformatted images reviewed. Additional r eformatted images created on dedicated 3-D workstation. NASCET comparable standard used to assess th e degree of arterial stenosis. Spiral CT angiogram cerebral arteries performed with the same intrave nous injection of contrast. Source images of the brain CTA transferred to dedicated workstation for 3 -D rotational image creation. Coronal, sagittal maximum intensity pixel images also reviewed. The d ose-length product (DLP) for this examination was 1495.14 mGy-cm. The exposure was tailored accordi ng to patient size, and iterative reconstruction (ASIR) was used as additional dose reduction techniq ue. Comparison made to head CT from 11/16/2019. FINDINGS: There is mild right carotid bulb plaque with 0% stenosis. Left carotid bulb is unremarkable . There is mild left carotid siphon arterial sclerosis without stenosis. There is right-sided posteri or communicating artery dominant posterior cerebral artery. There is no carotid or vertebral basil ar arterial dissection or fibromuscular dysplasia. There are no cerebral artery aneurysms. There is s ymmetric cerebral artery arborization. The sagittal, transverse and sigmoid sinuses enhance normally, no venous sinus thrombosis. Internal cerebral veins also enhance normally. There is mild cerebral atrophy. There is no acute intraparenchymal hemorrhage. No evidence of intrap arenchymal brain mass lesion. No evidence of acute infarction. There is no mass effect or midline s hift. There is no obstructive hydrocephalus suspected. There are no extra-axial collections. There are no calvarial acute fractures. Advanced cervical disc disease. Mild apical emphysema. IMPRESSION: 1. No cervical arterial dissection or cerebral artery aneurysm. 2. Mild scattered calcifications, 0% carotid stenosis bilaterally. Reviewed, dictated and finalized at location B.
--- NOTE | ~2019-12-14 | XR_ITS ---
EXAMINATION: XR chest 2V DATE: 12/14/2019 15:33 INDICATION: Left-sided numbness, history of pneumonia TECHNIQUE: PA and lateral views of the chest are obtained. COMPARISON: 11/13/2019 FINDINGS: The lungs are free of acute opacities. Chronic reticular opacities are unchanged, consisten t with chronic interstitial lung disease. There is no pleural effusion or pneumothorax. The cardiomed iastinal silhouette is normal. There is an unchanged mild compression deformity of the lower thoracic spine. Thoracolumbar dextro curvature is noted. A suture anchor is present in the left humeral head. IMPRESSION: 1. No acute cardiopulmonary abnormality. Reviewed, dictated and finalized at location A.
[2019-12-14 15:01] VITALS: BP 158/78; PULSE 68; RESP 18; TEMP 37.1; O2SAT 97
--- NOTE | 2019-12-14 15:10 | ECG_ITS ---
Measurements Intervals [place] Rate: 92 P: 41 MO: 162 QRS: 35 QRSD: 82 T: 72 QT: 346 QTc: 430 Interpretive Statements SINUS RHYTHM NONSPECIFIC ST & T-WAVE ABNORMALITY- INF/LAT LEADS BASELINE ARTIFACT- I, II, III, AVR, AVL, AVF, V1-V6 BORDERLINE ECG Electronically Signed On 12-14-2019 16:08:45 CDT by Ephraim Hernandez D.O.
--- NOTE | 2019-12-14 15:11 | ED.GENADULT ---
HPI - General Adult General Chief complaint: Extremity Injury, Upper Stated complaint: feels funny Time Seen by Provider: 12/14/19 15:02 History of Present Illness HPI narrative: Patient presents with numb feeling in her left arm and hand since 11 AM today. Then it extended to her forehead. She does not have a headache. She has no weakness. She has had no stroke in the past. She also feels a different sensation in the left leg when I examined her. She is not on any blood thinners. She had pneumonia 2 weeks ago. Does not smoke or drink, but does marijuana for her chronic pain. She had an accident where she has rods in her back and rods in her right femur. She has been taking Percocets since. Her NIH is 1 for drift of the right leg, which she says is due to pain. Onset (ago): hour(s) Location: face, left, upper extremity and lower extremity Severity: moderate Quality: other (Numbness) Pain Consistency: constant Relieving factors: other Exacerbating factors: none Associated symptoms: denies other symptoms Related Data Home Medications Medication Instructions Recorded Confirmed atorvastatin 80 mg PO HS 11/16/19 11/16/19 clonazepam 1 mg PO TID 11/16/19 11/16/19 cyclobenzaprine 10 mg PO TID PRN 11/16/19 11/16/19 duloxetine 20 mg PO DAILY 11/16/19 11/16/19 lisinopril-hydrochlorothiazide 1 tablet PO BID 11/16/19 11/16/19 metformin 1,000 mg PO BID 11/16/19 11/16/19 omeprazole 40 mg PO BID 11/16/19 11/16/19 oxycodone-acetaminophen 1 tablet PO Q4H PRN 11/16/19 11/16/19 tramadol 50 mg PO PRN 11/16/19 11/16/19 Allergies Allergy/AdvReac Type Severity Reaction Status Date / Time influenza virus vaccine, Allergy Severe Hives / Verified 12/14/19 15:11 specific Red Face NSAIDS (Non-Steroidal Allergy Mild Unknown Verified 12/14/19 15:11 Anti-Inflamma INFLAMMATORY DRUGS Allergy Unknown TONGUE Uncoded 12/14/19 15:11 SWELLS Review of Systems Review of Systems: Narrative: CONSTITUTIONAL: Denies fever, chills, or sweats. EYES: Denies visual changes, redness, or discharge. ENT: Denies rhinorrhea, congestion, sore throat, or otalgia. CARDIOVASCULAR: Denies chest pain, palpitations, or edema. RESPIRATORY: Denies cough or dyspnea. GASTROINTESTINAL: Denies abdominal pain, nausea, vomiting, or diarrhea. GENITOURINARY: Denies dysuria or hematuria. SKIN: Denies rash or itching. MUSCULOSKELETAL: She has chronic back pain, joint pain, and myalgia. NEUROLOGIC: Denies headache, but has numbness. PSYCHIATRIC: Denies anxiety or depression. [facility] Past Medical History Medical History Anxiety Chronic pain Depression DM2 (diabetes mellitus, type 2) History of diabetes mellitus History of hyperlipidemia History of hypertension Hypertension Surgical History Surgical History H/O arthroscopy of left knee H/O hernia repair H/O splenectomy H/O: hysterectomy History of back surgery X3 History of section, classical History of left shoulder replacement History of total right knee replacement (TKR) Family History Family History (Updated 11/16/19 @ 18:24 by Kimberlee Camejo NP) Mother Family history of Alzheimer's disease Heart disease Father Family history of emphysema COPD (chronic obstructive pulmonary disease) Social History Social History Social History: The patient was never . And she had twin boys. [facility]. She does not have a durable power health care attorney for healthcare. She is a full code. She never smoked. Does not use any alcohol or illicit drugs. However the patient states that she uses medical marijuana. She is disabled Smoking status: Never smoker Second hand tobacco smoke exposure: Yes Alcohol intake: never Substance use: current Substance use type: marijuana Other substance usage details:
--- NOTE | 2019-12-14 15:15 | PC.NURSE ---
Pt states she dropped the urine cup in the toilet while trying to get specimen
[2019-12-14 15:26] LABS: Basophils Absolute Auto 0.1 K/mm3 (0.0-0.1); Basophils Percent Auto 1.1 % (0.2-1.2); Eosinophils Absolute Auto 0.2 K/mm3 (0-0.3); Eosinophils Percent Auto 1.5 % (0-4.4); Hematocrit 40.6 % (37.0-47.0); Hemoglobin 13.5 g/dL (12.0-15.0); Immature Granulocyte Absolute 0.04 K/mm3 (0.00-0.031); Immature Granulocyte Percent A 0.3 % (0-0.5); Lymphocytes Absolute Auto 3.77 K/mm3 (0.9-3.2); Lymphocytes Percent Auto 30.8 % (18.3-44.2); Mean Corpuscular HGB Conc 33.3 g/dl (32-36); Mean Corpuscular Hemoglobin 29.7 pg (26-34); Mean Corpuscular Volume 89.4 fl (80-100); Mean Platelet Volume 9.2 fl (7.4-10.4); Monocytes Absolute Auto 1.2 K/mm3 (0.1-0.6); Neutrophils Absolute Auto 6.9 K/mm3 (1.3-6.7); Neutrophils Percent Auto 56.3 % (45.5-73.1); Platelet Count Result 504 k/mm3 (150-375); Red Blood Count 4.54 M/mm3 (4.2-5.4); Red Cell Distribution Width 13.8 % (11.5-14.5); White Blood Count 12.2 K/mm3 (4.5-10.0)
[2019-12-14 15:34] LABS: INR 0.9; Prothrombin Time 12.3 Seconds (11.1-14.7)
[2019-12-14 15:36] LABS: D Dimer 0.34 ug/mL (<0.48)
[2019-12-14 15:40] LABS: Ethanol < 10 mg/dL (<10)
[2019-12-14 15:42] LABS: Alanine Aminotransferase 18 U/L (4-35); Albumin Level 4.6 g/dL (3.5-5.1); Alkaline Phosphatase 149 U/L (38-126); Aspartate Amino Transferase 34 U/L (14-36); Bilirubin,Total 0.5 mg/dL (0.2-1.3); Blood Urea Nitrogen 10 mg/dL (7-17); Calcium 9.4 mg/dL (8.4-10.2); Carbon Dioxide 28 mmol/L (22-30); Chloride 98 mmol/L (98-107); Estimated CRCL calculation 67 ml/min; Estimated Glomerular Filt Rate > 60; Glucose 182 mg/dL (65-105); Potassium 3.4 mmol/L (3.4-5.0); Sodium 135 mmol/L (137-145)
[2019-12-14 17:29] LABS: Add Urine Microscopic? NO; Appearance Urine Clear (Clear); Bilirubin Urine Negative (Negative); Blood Urine Negative (Negative); Color Urine Colorless (Yellow); Glucose Urine UA Negative (Negative); Ketones Urine Negative (Negative); Leukocyte Esterase Ur Negative LEU/UL (Negative); Nitrate Urine Negative (Negative); Protein Urine Negative (Negative); Urobilinogen Urine Negative mg/dL (<2.0)
[2019-12-14 17:32] LABS: Specific Grav Ur 1.036 (1.001-1.035)
[2019-12-14 17:40] LABS: Amphetamine Screen Urine Negative (Negative); Barbiturate Screen Urine Negative (Negative); Benzodiazepines Screen Urine Negative (Negative); Cannabinoid Screen Urine Positive (Negative); Cocaine Screen Urine Negative (Negative); Methadone Screen Urine Negative (Negative); Opiate Screen Urine Positive (Negative); Phencyclidine Screen Urine Negative (Negative)
[2019-12-14 18:06] VITALS: BP 130/88; PULSE 99; RESP 18; O2SAT 100
--- NOTE | 2019-12-14 18:06 | PC.NURSE ---
at beside speaking with patient about being admitted. Pt states I cant stay. I have no one to take care of my dog. I will just followup with my dr tomorrow Dr explains the risks of leaving AMA. Pt agrees and signs papers
== END 2019-12-14 18:22 | disposition left against medical advice (07) ==
PROVIDERS: Emergency Provider Emergency Medicine; PCP Psychiatry & Neurology Neurology
DX: R20.2 Paresthesia of skin (principal); F41.9 Anxiety disorder, unspecified; G89.29 Other chronic pain; F32.9 Major depressive disorder, single episode, unspecified; E11.9 Type 2 diabetes mellitus without complications; Z79.84 Long term (current) use of oral hypoglycemic drugs; E78.5 Hyperlipidemia, unspecified; I10 Essential (primary) hypertension
CPT/HCPCS: 36415; 70496; 70498; 71046; 80053; 80307; 81003; 85025; 85380; 85610; 93005; 99284; A9270; Q9967

== ENCOUNTER 2020-06-07 10:11 | Emergency (ER) | payer MEDICARE, MEDICAID, SELFPAY ==
--- NOTE | ~2020-06-07 | XR_ITS ---
XR chest 1V portable 06/07/2020 12:14 Indication: Syncope. Isolation precautions. Procedure: AP portable chest Comparison: Comparison to multiple prior studies sequentially, with oldest reviewed study dated 03/24. Findings: Heart size normal. Bibasilar airspace disease. No edema, pleural effusion or pneumothorax. The lungs are hyperinflated which is consistent with, but not diagnostic of chronic obstructive pulmo nary disease. No acute osseous abnormality. Impression: 1: Bibasilar airspace disease may represent atelectasis or pneumonia. Reviewed, dictated and finalized at location A. ICE REPRESENTATIVE Impression: 1: Bibasilar airspace disease may represent atelectasis or pneumonia.
--- NOTE | ~2020-06-07 | CT_ITS ---
EXAMINATION: CT brain wo con DATE: 06/07/2020 11:33 INDICATION: Syncope. TECHNIQUE: Computed tomography (CT) of the head was performed without intravenous contrast. The mA wa s adjusted according to patient size. Iterative reconstruction technique was employed. The dose-lengt h product was 605.33 mGy-cm. COMPARISON: Head CT 12/14/2019 FINDINGS: There is no intracranial hemorrhage, acute infarction, or abnormal intracranial mass lesion . The ventricles are normal in size. There is mild mucosal thickening in the paranasal sinuses. The o rbits are normal. The mastoid air cells are normal. IMPRESSION: 1. Normal brain. Reviewed, dictated and finalized at location A. RIOR DESIGN CONSULTANT IMPRESSION: 1. Normal brain.
[2020-06-07 10:11] VITALS: BP 135/74; PULSE 99; RESP 17; TEMP 36.3; O2SAT 96
[2020-06-07 10:30] VITALS: BP 134/74; PULSE 94; RESP 12; O2SAT 99
[2020-06-07 10:40] VITALS: PULSE 92; O2SAT 93
--- NOTE | 2020-06-07 10:40 | PC.NURSE ---
Seizure pads in place on stretcher on pt arrival to ED. Note sp02 88-89% with good pleth on room air. Pt denies shortness of breath. O2 placed at 2L/NC. Dr. Trevizo made aware.
--- NOTE | 2020-06-07 10:49 | ECG_ITS ---
Measurements Intervals [place] Rate: 94 P: 33 ME: 182 QRS: 24 QRSD: 84 T: 35 QT: 365 QTc: 456 Interpretive Statements SINUS RHYTHM EARLY PRECORDIAL R/S TRANSITION LOW QRS VOLTAGE IN PRECORDIAL LEADS BORDERLINE T WAVE ABNORMALITY- ANT/INF LEADS BASELINE ARTIFACT- I, II, III, AVR, AVL, AVF BORDERLINE ECG Electronically Signed On 06-07-2020 11:01:28 OUTSIDE DELIVERER by Ephraim Hernandez D.O.
--- NOTE | 2020-06-07 10:52 | ED.GENADULT ---
HPI - General Adult General Chief complaint: Seizure Stated complaint: ?SEIZURE Time Seen by Provider: 06/07/20 10:34 Source: patient and EMS Mode of arrival: EMS History of Present Illness HPI narrative: Patient is 70 years old white female brought to the emergency room from home for possible seizure. Her friend told the ambulance that patient was sitting having a plate in her hand then dropped the plate and went down on the floor from sitting position shaking all over lasted for about 1 minute. Patient does not recall anything. Patient does not know that she have any friend over. Patient is telling me that she had a friend over her house last night and she believes that he left at that time. Patient does not know how she ended up in the emergency room. Currently asymptomatic. Denying oxygen use. Patient have intermittent coughing during my examination, she denies any history of coughing. Patient denies smoking, drinking or using drugs. Patient did not take her regular medication this morning.. Related Data Home Medications Medication Instructions Recorded Confirmed atorvastatin 80 mg PO HS 11/16/19 11/16/19 clonazepam 1 mg PO TID 11/16/19 11/16/19 cyclobenzaprine 10 mg PO TID PRN 11/16/19 11/16/19 duloxetine 20 mg PO DAILY 11/16/19 11/16/19 lisinopril-hydrochlorothiazide 1 tablet PO BID 11/16/19 11/16/19 metformin 1,000 mg PO BID 11/16/19 11/16/19 omeprazole 40 mg PO BID 11/16/19 11/16/19 oxycodone-acetaminophen 1 tablet PO Q4H PRN 11/16/19 11/16/19 tramadol 50 mg PO PRN 11/16/19 11/16/19 Allergies Allergy/AdvReac Type Severity Reaction Status Date / Time influenza virus vaccine, Allergy Severe Hives / Verified 06/07/20 10:52 specific Red Face NSAIDS (Non-Steroidal AdvReac Mild Unknown Verified 06/07/20 11:00 Anti-Inflamma INFLAMMATORY DRUGS AdvReac Unknown TONGUE Uncoded 06/07/20 11:00 SWELLS Review of Systems Review of Systems: Narrative: CONSTITUTIONAL: Denies fever, chills, or sweats. EYES: Denies visual changes, redness, or discharge. ENT: Denies rhinorrhea, congestion, sore throat, or otalgia. CARDIOVASCULAR: Denies chest pain, palpitations, or edema. RESPIRATORY: Denies cough or dyspnea. GASTROINTESTINAL: Denies abdominal pain, nausea, vomiting, or diarrhea. GENITOURINARY: Denies dysuria or hematuria. SKIN: Denies rash or itching. MUSCULOSKELETAL: Denies back pain, joint pain, or myalgia. NEUROLOGIC: Denies headache, numbness, or weakness. PSYCHIATRIC: Denies anxiety or depression. [facility] Past Medical History Medical History Anxiety Chronic pain Depression DM2 (diabetes mellitus, type 2) History of diabetes mellitus History of hyperlipidemia History of hypertension Hypertension Surgical History Surgical History H/O arthroscopy of left knee H/O hernia repair H/O splenectomy H/O: hysterectomy History of back surgery X3 History of section, classical History of left shoulder replacement History of total right knee replacement (TKR) Family History Family History Mother Family history of Alzheimer's disease Heart disease Father Family history of emphysema COPD (chronic obstructive pulmonary disease) Social History Social History Social History: The patient was never . And she had twin boys. She lives in [facility]. She does not have a durable power senior attorney for healthcare. She is a full code. She never smoked. Does not use any alcohol or illicit drugs. However the patient states that she uses medical marijuana. She is disabled Smoking status: Never smoker Second hand tobacco smoke exposure: Yes Alcohol intake: never Substance use: current Substance use type: marijuana Other substance usage details: For back pain once per
--- NOTE | 2020-06-07 10:54 | PC.NURSE ---
Pt requesting a percocet pill po for c/o pain to her back. States the pain is chronic, and that she regularly receives injections for this. Pt unable to coorelate medications; has brought 4 bottles with her. States she has more at home that she didn't bring.
[2020-06-07] MEDS: SODIUM CHLORIDE 0.9% IV 1,000 ML 999 ML IV CONT (10:58)
[2020-06-07 11:00] VITALS: BP 137/76; PULSE 93; RESP 18; O2SAT 99
[2020-06-07 11:10] LABS: Base Excess ABG -1.5 mEq/l (+/-2.0); Fractional Inspired Oxygen 21 %; HCO3 ABG 22.9 mEq/l (22.0-26.0); Oxygen Content ABG 16.2 %vol (16.0-22.0); Oxygen Saturation ABG 93.4 % (95.0-100.0); Oxyhemoglobin 91.1 % THb (90.0-100.0); PCO2 ABG 37.5 mmHg (35.0-45.0); PO2 ABG 66.8 mmHg (80.0-100.0); PO2 FiO2 Ratio Arterial Blood 3.18 %; Total Hemoglobin 12.6 g/dL (12.0-18.0); pH ABG 7.403 (7.350-7.450)
[2020-06-07 11:12] LABS: Device ROOM AIR; Modified Allen's Test Pass; Site Drawn LEFT RADIAL
--- NOTE | 2020-06-07 11:15 | PC.NURSE ---
Covid swab collected, blood being collected. Preparing to straight cath the patient, states I'm not doing that. I'm going to be signing out anyway. You're not doing that . Dr. Trevizo made aware.
--- NOTE | 2020-06-07 11:26 | PC.NURSE ---
Unable to collect all the blood at this time. Pt to CT via stretcher. Plan to collect remaining blood when returns.
[2020-06-07 11:39] VITALS: BP 118/66; PULSE 84; RESP 18; O2SAT 99
[2020-06-07 11:50] LABS: Basophils Absolute Auto 0.1 K/mm3 (0.0-0.1); Basophils Percent Auto 0.7 % (0.2-1.2); Eosinophils Absolute Auto 0.1 K/mm3 (0-0.3); Eosinophils Percent Auto 0.8 % (0-4.4); Hematocrit 34.4 % (37.0-47.0); Hemoglobin 11.4 g/dL (12.0-15.0); Immature Granulocyte Absolute 0.06 K/mm3 (0.00-0.031); Immature Granulocyte Percent A 0.4 % (0-0.5); Lymphocytes Absolute Auto 2.24 K/mm3 (0.9-3.2); Lymphocytes Percent Auto 15.8 % (18.3-44.2); Mean Corpuscular HGB Conc 33.1 g/dl (32-36); Mean Corpuscular Hemoglobin 30.7 pg (26-34); Mean Corpuscular Volume 92.7 fl (80-100); Mean Platelet Volume 8.9 fl (7.4-10.4); Monocytes Absolute Auto 1.4 K/mm3 (0.1-0.6); Monocytes Percent Auto 9.6 % (2.6-8.5); Neutrophils Absolute Auto 10.3 K/mm3 (1.3-6.7); Neutrophils Percent Auto 72.7 % (45.5-73.1); Platelet Count Result 470 k/mm3 (150-375); Red Blood Count 3.71 M/mm3 (4.2-5.4); Red Cell Distribution Width 14.4 % (11.5-14.5); White Blood Count 14.2 K/mm3 (4.5-10.0)
[2020-06-07 12:00] LABS: Prothrombin Time 13.8 Seconds (11.1-14.7)
[2020-06-07 12:01] LABS: Partial Thromboplastin Time 23.3 SECONDS (22.3-36.8)
[2020-06-07 12:02] LABS: Alanine Aminotransferase 16 U/L (4-35); Albumin Level 3.8 g/dL (3.5-5.1); Alkaline Phosphatase 99 U/L (38-126); Anion Gap 10 mmol/L (8-16); Aspartate Amino Transferase 26 U/L (14-36); Bilirubin,Total 0.4 mg/dL (0.2-1.3); Blood Urea Nitrogen 13 mg/dL (7-17); Calcium 8.6 mg/dL (8.4-10.2); Carbon Dioxide 26 mmol/L (22-30); Chloride 97 mmol/L (98-107); Estimated CRCL calculation 57 ml/min; Estimated Glomerular Filt Rate > 60; Glucose 193 mg/dL (65-105); Potassium 3.4 mmol/L (3.4-5.0); Sodium 133 mmol/L (137-145)
[2020-06-07 12:13] LABS: Troponin I < 0.012 ng/mL (0.000-0.034)
--- NOTE | 2020-06-07 14:00 | PC.NURSE ---
Dr. Trevizo at bedside discussing plan of care; pt refusing to be admitted at this time. Risks explained to patient.
--- NOTE | 2020-06-07 14:10 | PC.NURSE ---
AMA form signed per patient. States she is afraid to leave her assisted living facility for very long because when her dog is left alone, he scratches and ruins things, and she's afraid she and her dog will be kicked out of the facility. States she is feeling better at present I will come back if I have to . Explained that the seizures could be caused by a heart condition, pt states she will come back if she feels worse.
[2020-06-07 14:29] LABS: Glucose Point of Care 175 (65-105)
[2020-06-07 22:31] LABS: SARS-CoV-2 RNA PCR Negative
== END 2020-06-07 14:15 | disposition left against medical advice (07) ==
PROVIDERS: Emergency Provider Emergency Medicine
DX: Z20.828 Contact with and (suspected) exposure to other viral communicable diseases (principal); J18.9 Pneumonia, unspecified organism; R55 Syncope and collapse; F41.9 Anxiety disorder, unspecified; F32.9 Major depressive disorder, single episode, unspecified; E11.9 Type 2 diabetes mellitus without complications; I10 Essential (primary) hypertension
CPT/HCPCS: 36415; 36600; 70450; 71045; 80053; 82805; 82948; 84484; 85025; 85610; 85730; 87635; 93005; 96360; 96361; 99284; C9803; J7030; U0003

== ENCOUNTER 2020-06-11 10:24 | Observation (INO) | payer MEDICARE, MEDICAID, SELFPAY ==
[2020-06-11] VITALS (7 sets, daily range): BP systolic 98–137; BP diastolic 61–78; PULSE 58–102; RESP 14–20; TEMP 36.1–37.1; O2SAT 97–100; BMI 23.4
--- NOTE | ~2020-06-11 | XR_ITS ---
EXAMINATION: XR knee LT min 4V DATE: 06/11/2020 11:05 INDICATION: Left knee pain. TECHNIQUE: 4 views of left knee were obtained. COMPARISON: Left knee radiographs 11/16/2019 FINDINGS: Bone alignment is normal. No fracture. There is moderate osteoarthritis of lateral compartm ent and mild osteoarthritis of medial and patellofemoral compartments. There is a small knee joint ef fusion. IMPRESSION: 1. Moderate left knee osteoarthritis. 2. Small left knee joint effusion. Reviewed, dictated and finalized at location A. EN ROLLER
--- NOTE | ~2020-06-11 | XR_ITS ---
EXAMINATION: XR hip LT min 3V w AP pelvis DATE: 06/11/2020 11:05 INDICATION: Left hip pain. TECHNIQUE: An anteroposterior view of the pelvis and 3 views of left hip were obtained. COMPARISON: Pelvis and right hip radiographs 11/13/2019 FINDINGS: Bone alignment is normal. No fracture. There is a total right hip arthroplasty in near-emiliana omic alignment. There is mild left hip osteoarthritis. There are changes of posterior fusion procedur e at L5-S1. There is severe degenerative disc disease at L4-L5. IMPRESSION: 1. Mild left hip osteoarthritis. 2. Total right hip arthroplasty in near-anatomic alignment. Reviewed, dictated and finalized at location A. O PROGRAM DIRECTOR
--- NOTE | ~2020-06-11 | XR_ITS ---
EXAMINATION: XR chest 1V portable DATE: 06/11/2020 12:17 INDICATION: Chest injury. TECHNIQUE: A single frontal view of the chest was obtained. COMPARISON: Chest single view 06/07/2020, CT abdomen and pelvis 11/16/2019 FINDINGS: There are chronic reticular opacities in the lower lung zones. No pleural effusion or pneum othorax. The heart size is normal. IMPRESSION: 1. Stable mild chronic interstitial lung disease. Reviewed, dictated and finalized at location A. CHOOL ASSISTANT PRINCIPAL
--- NOTE | 2020-06-11 11:20 | ED.FALL ---
HPI - Fall General Chief Complaint: Fall <MARIA LUZ Shannon Last Filed: 06/11/20 14:25> Stated Complaint: fall <MARIA LUZ Shannon Last Filed: 06/11/20 14:25> Time Seen by Provider: 06/11/20 10:30 <MARIA LUZ Shannon Last Filed: 06/11/20 14:25> Source: patient, EMS and old records reviewed <MARIA LUZ Shannon Last Filed: 06/11/20 14:25> Mode of arrival: EMS <MARIA LUZ Shannon Last Filed: 06/11/20 14:25> Limitations: no limitations <MARIA LUZ Shannon Last Filed: 06/11/20 14:25> History of Present Illness HPI Narrative: Patient is a 70-year-old female who presents to emergency department for evaluation of left extremity injury noting that she got up in the night and fell injuring the left knee has moderate aching pain today with mild pain of the hip patient 2 days ago has signed herself out of the hospital after being admitted for seizure patient notes she has been compliant with her medications since leaving has not follow-up with primary care yet patient lives at home by herself but does have a friend who was present with her <MARIA LUZ Shannon Last Filed: 06/11/20 14:25> Related Data Home Medications: Home Medications Medication Instructions Recorded Confirmed atorvastatin 80 mg PO HS 11/16/19 06/11/20 cyclobenzaprine 10 mg PO TID PRN 11/16/19 06/11/20 lisinopril-hydrochlorothiazide 1 tablet PO BID 11/16/19 06/11/20 metformin 1,000 mg PO BID 11/16/19 06/11/20 omeprazole 40 mg PO BID 11/16/19 06/11/20 oxycodone-acetaminophen 1 tablet PO Q4H PRN 11/16/19 06/11/20 tramadol 50 mg PO PRN 11/16/19 06/11/20 <MARIA LUZ Shannon Last Filed: 06/11/20 14:25> Allergies/Adverse Reactions: Allergies Allergy/AdvReac Type Severity Reaction Status Date / Time influenza virus vaccine, Allergy Severe Hives / Verified 06/11/20 10:28 specific Red Face NSAIDS (Non-Steroidal AdvReac Mild Unknown Verified 06/11/20 10:28 Anti-Inflamma INFLAMMATORY DRUGS AdvReac Unknown TONGUE Uncoded 06/11/20 10:28 SWELLS <Ricardo Alvarez PA-C - Last Filed: 06/11/20 14:25> Review of Systems Review of Systems: All systems reviewed & are unremarkable except as noted in HPI and below <Ricardo Alvarez PA-C - Last Filed: 06/11/20 14:25> [facility] Past Medical History Medical History: Medical History Anxiety Chronic pain Depression DM2 (diabetes mellitus, type 2) History of diabetes mellitus History of hyperlipidemia History of hypertension Hypertension <Ricardo Alvarez PA-C - Last Filed: 06/11/20 14:25> Surgical History Surgical History: Surgical History H/O arthroscopy of left knee H/O hernia repair H/O splenectomy H/O: hysterectomy History of back surgery X3 History of section, classical History of left shoulder replacement History of total right knee replacement (TKR) <Ricardo Alvarez PA-C - Last Filed: 06/11/20 14:25> Family History Family History: Family History Mother Family history of Alzheimer's disease Heart disease Father Family history of emphysema COPD (chronic obstructive pulmonary disease) <Ricardo Alvarez PA-C - Last Filed: 06/11/20 14:25> Social History Social History: Social History Social History: The patient was never . And she had twin boys. She lives in a assisted independent Living. She does not have a durable power chemical detection expert for healthcare. She is a full code. She never smoked. Does not use any alcohol or illicit drugs. However the patient states that she uses medical marijuana. She is disabled Smoking status: Current some day smoker Second hand tobacco smoke exposure: Yes Additional smoking assessment comments: only
[2020-06-11 11:26] LABS: Basophils Absolute Auto 0.1 K/mm3 (0.0-0.1); Basophils Percent Auto 0.6 % (0.2-1.2); Eosinophils Absolute Auto 0.1 K/mm3 (0-0.3); Eosinophils Percent Auto 0.4 % (0-4.4); Hematocrit 37.2 % (37.0-47.0); Hemoglobin 12.7 g/dL (12.0-15.0); Immature Granulocyte Absolute 0.06 K/mm3 (0.00-0.031); Immature Granulocyte Percent A 0.4 % (0-0.5); Lymphocytes Absolute Auto 1.96 K/mm3 (0.9-3.2); Lymphocytes Percent Auto 14.6 % (18.3-44.2); Mean Corpuscular HGB Conc 34.1 g/dl (32-36); Mean Corpuscular Hemoglobin 30.9 pg (26-34); Mean Corpuscular Volume 90.5 fl (80-100); Mean Platelet Volume 9.2 fl (7.4-10.4); Monocytes Absolute Auto 1.5 K/mm3 (0.1-0.6); Monocytes Percent Auto 10.9 % (2.6-8.5); Neutrophils Absolute Auto 9.8 K/mm3 (1.3-6.7); Neutrophils Percent Auto 73.1 % (45.5-73.1); Platelet Count Result 410 k/mm3 (150-375); Red Blood Count 4.11 M/mm3 (4.2-5.4); Red Cell Distribution Width 14.4 % (11.5-14.5); White Blood Count 13.4 K/mm3 (4.5-10.0)
[2020-06-11 11:38] LABS: Anion Gap 11 mmol/L (8-16); Blood Urea Nitrogen 31 mg/dL (7-17); Carbon Dioxide 27 mmol/L (22-30); Chloride 97 mmol/L (98-107); Estimated CRCL calculation 32 ml/min; Estimated Glomerular Filt Rate 41; Glucose 112 mg/dL (65-105); Potassium 4.5 mmol/L (3.4-5.0); Sodium 135 mmol/L (137-145)
[2020-06-11] MEDS: SODIUM CHLORIDE 0.9% IV 1,000 ML 999 ML IV CONT (12:11)
[2020-06-11 13:17] LABS: Add Urine Microscopic? NO; Appearance Urine Clear (Clear); Bilirubin Urine Negative (Negative); Blood Urine Negative (Negative); Color Urine Straw (Yellow); Glucose Urine UA Negative (Negative); Ketones Urine Negative (Negative); Leukocyte Esterase Ur Negative LEU/UL (Negative); Nitrate Urine Negative (Negative); Protein Urine Negative (Negative); RBC Urine 0-2 /hpf (0-2); Specific Grav Ur 1.014 (1.001-1.035); Urobilinogen Urine Negative mg/dL (<2.0); WBC Urine 0-3 /hpf
--- NOTE | 2020-06-11 14:05 | PC.NURSE ---
Aaron (son) called,
[2020-06-11 14:47] LABS: Ethanol < 10 mg/dL (<10)
[2020-06-11] MEDS: oxyCODONE/ACETAMINOPHEN (*CRX) 5-325 MG TABLET 1 TABLET PO ×2 (15:19→20:21)
--- NOTE | 2020-06-11 15:50 | PC.NURSE ---
This patient, Li De Los Santos, was admitted to Medical Room 344-01. Patient/family oriented to hospital policies and general routines including ID bracelet, bed and alarms, visiting hours, pain management, procedures, bathroom and other care routines, personal items, smoking policy, room service/diet, and visiting hours. Information on how to activate the Rapid Response Team has been discussed. Patient/Family are encouraged to report perceived risks to care and to ask questions if they do not understand what they are told or what they should do.
[2020-06-11] MEDS: LACTATED RINGERS 1,000 ML 125 ML IV CONT (16:16)
--- NOTE | 2020-06-11 17:01 | PM.IMHP ---
H&P: HPI History of Present Illness Date/Time: 06/11/20 17:01 Chief Complaint: Fall Narrative: Li De Los Santos is a 70 year old female whom I have seen on a couple different occasions. She has a history of depression with a suicide attempt back in 2011 attempt with ethanol glyco. She did have a dialysis x1 at that time. The patient October of this year where she had been falling. She lives in a halfway facility and has had multiple falls. She has had back surgery and has had multiple falls. The patient has been on pain medicine and muscle relaxers in the past. She has not had any history of seizure disorder. In the emergency room in November and stated that she would not stay. She said that she felt weird and felt like she was having some numbness and tingling it was suggested that she stay and be admitted at that time but she signed out AMA. To the emergency room on the via ambulance when she fell down on the floor and was shaking all over for about a minute. She could recall anything. It was felt that she may have had a seizure. The patient now comes in today for evaluation of left extremity injury she got up in the night and fell injuring her left knee and has moderate amount of achiness today. The patient tells me she no longer takes her muscle relaxer and that when she walks her legs just give out. I asked her about using a walker or cane. She said sometimes she uses her walker and other time she uses her cane. Creatinine 1.3 sodium 135. Glucose 112. Her urine was negative. Was read as more stable mild chronic interstitial lung disease. Knee x-ray was read as moderate left knee osteoarthritis. Small left knee joint effusion. Hip and pelvis x-ray was read as mild left hip osteoarthritis. Total right hip arthroplasty in near anatomical alignment. The patient had a CT of her brain on 06/07/2020 in that was normal. IV Tylenol and Percocet. Patient is being admitted observation on the date of service of 06/11/2020. Review of Systems Review of Systems: All systems reviewed & are unremarkable except as noted in HPI and below Constitutional: Constitutional: Reports as per HPI and Reports no additional constitutional complaints Eyes: Eyes: Reports as per HPI and Reports no additional eye complaints ENT: Reports system reviewed and no additional complaints, except as documented and Reports Normal hearing present Cardiovascular: Cardiovascular: Reports no additional cardiovascular complaints Respiratory: Respiratory: Reports no additional respiratory complaints and Reports no additional respiratory complaints Gastrointestinal: Gastrointestinal: Reports as per HPI and Reports no additional gastrointestinal complaints Musculoskeletal: Musculoskeletal: Reports no additional musculoskeletal complaints Integumentary/Breasts: Skin/Breast: Reports system reviewed and no additional complaints, except as docu and Reports as per HPI Neurologic: Reports system reviewed and no additional complaints, except as documented, Reports as per HPI and Reports Normal hearing present Psychiatric: Psychiatric: Reports no additional psychiatric complaints and Reports as per HPI Endocrine: Endocrine: Reports no additional endocrine complaints Hematologic/Lymphatic: Hematologic/Lymphatic: Reports no additional hematologic/lymphatic complaints Allergic/Immunologic: Allergic/Immunologic: Reports no additional allergic/immunologic complaints [facility] Past Medical History Medical History (Updated 06/11/20 @ 17:18 by Kimberlee Camejo NP) Anxiety Chronic pain Depression DM2 (diabetes mellitus, type 2) History of diabetes mellitus History of hyperlipidemia History of hypertension History of suicide attempt With ethylene glycol level greater than 40. One round of dialysis Hypertension Surgical History Surgical History H/O arthroscopy of left knee H/O hernia repair H/O splenectomy H/O: hysterectom
[2020-06-11] MEDS: FAMOTIDINE 20 MG/2 ML VIAL IV PUSH (20:31)
[2020-06-11 20:35] LABS: Glucose Point of Care 133 (65-105)
[2020-06-11 20:41] LABS: Amphetamine Screen Urine Negative (Negative); Barbiturate Screen Urine Negative (Negative); Benzodiazepines Screen Urine Negative (Negative); Cannabinoid Screen Urine Positive (Negative); Cocaine Screen Urine Negative (Negative); Methadone Screen Urine Negative (Negative); Opiate Screen Urine Positive (Negative); Phencyclidine Screen Urine Negative (Negative)
[2020-06-12] VITALS (11 sets, daily range): BP systolic 103–121; BP diastolic 49–80; PULSE 73–101; RESP 16; TEMP 36.1–36.6; O2SAT 98
[2020-06-12] MEDS: oxyCODONE/ACETAMINOPHEN (*CRX) 5-325 MG TABLET 1 TABLET PO ×4 (01:13→14:49)
[2020-06-12 05:52] LABS: Basophils Absolute Auto 0.1 K/mm3 (0.0-0.1); Basophils Percent Auto 0.8 % (0.2-1.2); Eosinophils Absolute Auto 0.2 K/mm3 (0-0.3); Eosinophils Percent Auto 2.6 % (0-4.4); Hematocrit 34.8 % (37.0-47.0); Hemoglobin 11.9 g/dL (12.0-15.0); Immature Granulocyte Absolute 0.03 K/mm3 (0.00-0.031); Immature Granulocyte Percent A 0.3 % (0-0.5); Lymphocytes Absolute Auto 1.74 K/mm3 (0.9-3.2); Lymphocytes Percent Auto 19.5 % (18.3-44.2); Mean Corpuscular HGB Conc 34.2 g/dl (32-36); Mean Corpuscular Hemoglobin 30.6 pg (26-34); Mean Corpuscular Volume 89.5 fl (80-100); Mean Platelet Volume 9.1 fl (7.4-10.4); Monocytes Absolute Auto 1.4 K/mm3 (0.1-0.6); Monocytes Percent Auto 15.9 % (2.6-8.5); Neutrophils Absolute Auto 5.4 K/mm3 (1.3-6.7); Neutrophils Percent Auto 60.9 % (45.5-73.1); Platelet Count Result 377 k/mm3 (150-375); Red Blood Count 3.89 M/mm3 (4.2-5.4); Red Cell Distribution Width 14.6 % (11.5-14.5); White Blood Count 8.9 K/mm3 (4.5-10.0)
[2020-06-12 05:53] LABS: Glucose Point of Care 100 (65-105)
[2020-06-12] MEDS: LACTATED RINGERS 1,000 ML 125 ML IV CONT (06:00)
[2020-06-12 06:04] LABS: Lactic Acid Reflex 0.9 mmol/L (0.7-2.1)
[2020-06-12 06:12] LABS: Anion Gap 6 mmol/L (8-16); Blood Urea Nitrogen 18 mg/dL (7-17); Calcium 8.4 mg/dL (8.4-10.2); Carbon Dioxide 29 mmol/L (22-30); Chloride 98 mmol/L (98-107); Estimated CRCL calculation 51 ml/min; Estimated Glomerular Filt Rate > 60; Glucose 108 mg/dL (65-105); Potassium 4.1 mmol/L (3.4-5.0); Sodium 133 mmol/L (137-145)
[2020-06-12 07:50] LABS: Glucose Point of Care 109 (65-105)
[2020-06-12] MEDS: FAMOTIDINE 20 MG/2 ML VIAL IV PUSH (09:09)
--- NOTE | 2020-06-12 10:01 | WPDNEURCNPN ---
Assessment and Plan Assessment and plan (1) Injury of lower leg: Code(s): S89.90XA - Unspecified injury of unspecified lower leg, initial encounter Status: Acute (2) At risk for falling: Code(s): Z91.81 - History of falling Status: Acute (3) Fall: Qualifiers: Encounter type: initial encounter Qualified Code(s): W19.XXXA - Unspecified fall, initial encounter Code(s): W19.XXXA - Unspecified fall, initial encounter Status: Acute (4) Depression: Qualifiers: Depression Type: major depressive disorder Major depression recurrence: unspecified whether recurrent Code(s): F32.9 - Major depressive disorder, single episode, unspecified Status: Chronic (5) Contusion of knee, right: Code(s): S80.01XA - Contusion of right knee, initial encounter Status: Acute Additional Plan she will benefit from the physical therapy evaluation otherwise the medical plans as ordered Consult date: 06/12/20 Time Seen: 10:00 HPI: Li De Los Santos is a 70 year old female Has been admitted to the hospital through the emergency room for the complaints of fall. As per the review of the information she has history of 1. Depression with suicidal attempt back in 2011. 2. History of dialysis at 1 time. 3. Living in long-term facility with multiple falls. 4. History of back surgery requiring the pain medications and muscle relaxers. 5. History of ER visit in the past and signing out against medical advise and 6. History of visit on the possibility of seizure. On evaluation this time she gave the history of fall and routine labs was unremarkable. She has history of anxiety, chronic pain, depression, type 2 diabetes mellitus, and hypertension. Review of Systems Review of Systems: All systems reviewed & are unremarkable except as noted in HPI and below PMFSH Past Medical History Medical History Anxiety Chronic pain Depression DM2 (diabetes mellitus, type 2) History of diabetes mellitus History of hyperlipidemia History of hypertension History of suicide attempt With ethylene glycol level greater than 40. 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 And she had twin boys. She lives in a long-term independent Living. She does not have a durable power workers compensation defense attorney for healthcare. She is a full code. She never smoked. Does not use any alcohol or illicit drugs. However the patient states that she uses medical marijuana. She is disabled Smoking status: Current some day smoker Second hand tobacco smoke exposure: Yes Additional smoking assessment comments: only smoke marijuanna Alcohol intake: former Substance use: current Substance use type: marijuana Other substance usage details: For back pain once per week Last use: 06-10-20 Additional occupation/education comments: Disability Gender identity (if verbalized by the patient): Female Spiritual care concerns: No Meds Home Medications and Allergies Home Medications Medication Instructions Recorded Confirmed Type atorvastatin 80 mg PO HS 11/16/19 06/11/20 History cyclobenzaprine 10 mg PO TID PRN 11/16/19 06/11/20 History lisinopril-hydrochlorothiazide 1 tablet PO BID 11/16/19
[2020-06-12 11:42] LABS: Glucose Point of Care 98 (65-105)
[2020-06-12] MEDS: MAGNESIUM SULF 4 GM/WATER100ML 4 GM/100 ML BAG IVPB (14:50)
--- NOTE | 2020-06-12 18:54 | PM.DS ---
DS: Admitting Diagnosis Admitting Diagnosis Admitting Diagnosis: Left knee injury, HORACE DS: Discharge Diagnosis Discharge Diagnosis (1) Injury of lower leg: Code(s): S89.90XA - Unspecified injury of unspecified lower leg, initial encounter Status: Acute Assessment and Plan: Date of Admission 06/11/20 Date of Discharge/DOS 06/12/20 Ms. De Los Santos is a 70yo F with history of hypertension, type 2 diabetes mellitus, chronic pain, depression and anxiety who presented to the ED for evaluation of left knee pain after a fall. She noted she was seen in the ED 06/07 after a possible seizure and signed out against medical advice. She describes pain to left knee and difficulty extending. XR left knee demonstrated osteoarthritis without acute fractures. She described she was unable to bear weight on the left knee but she was able to ambulate 40' contact guard with therapy. She declined rehab placement and declined home health arrangement. Cr mildly elevated at 1.3 on arrival, improved to 0.8 the following day after IV hydration. She was hemodynamically stable for discharge on 06/12/20 with instructions to follow up with her PCP and orthopedist. (2) Acute dehydration: Code(s): E86.0 - Dehydration Status: Acute Assessment and Plan: Improved with IV fluids. (3) Acute kidney injury: Code(s): N17.9 - Acute kidney failure, unspecified Status: Acute Assessment and Plan: Improved with IV fluids. (4) DM2 (diabetes mellitus, type 2): Code(s): E11.9 - Type 2 diabetes mellitus without complications Status: Acute Assessment and Plan: Stable, follow up with PCP (5) Chronic pain: Code(s): G89.29 - Other chronic pain Status: Chronic Assessment and Plan: Patient has had back surgery x3 and is chronically on pain medication at home. (6) Depression: Qualifiers: Depression Type: major depressive disorder Major depression recurrence: unspecified whether recurrent Code(s): F32.9 - Major depressive disorder, single episode, unspecified Status: Chronic Assessment and Plan: The patient has had a previous suicide attempt in the past, no suicidal ideations at present. Stable, follow up with PCP/ psych. (7) Hypertension: Qualifiers: Hypertension type: essential hypertension Qualified Code(s): I10 - Essential (primary) hypertension Code(s): I10 - Essential (primary) hypertension Status: Chronic Assessment and Plan: Lisinopril and HCTZ held overnight due to HORACE, resume at discharge and follow up with PCP. (8) Anxiety: Code(s): F41.9 - Anxiety disorder, unspecified Status: Chronic Assessment and Plan: Anxious. Stable. (9) Weakness: Code(s): R53.1 - Weakness Status: Acute Assessment and Plan: Patient declines rehab or home health arrangement. Did well walking with therapy contact guard. DS: Summary Hospital Course Hospital Course: See above. Time Spent with Patient Time attestation: Total time spent providing and/or coordinating discharge services: 40 minutes Exam Narrative: Exam Narrative: General: Female resting supine in bed in no acute distress. HEENT: Normocephalic, EOMI, oral mucosa moist. Cardiovascular: Rate and rhythm are regular. Respiratory: Lungs clear to auscultation bilaterally. Respirations even and non-labored. Abdomen: Soft, non-tender, non-distended, bowel sounds present. Extremities: Peripheral pulses intact. Left knee in IVAN wrap. No edema. Neuro: No focal neurological deficits. Speech is clear. DS: Data Data Completed and Pending Labs on day of discharge: Last Vital Signs Temp 96.9 F L 06/12/20 11:48 Pulse 79 06/12/20 16:00 Resp 16 06/12/20 11:48 BP 107/69 06/12/20 14:40 Pulse Ox 98 06/12/20 11:48 ITS Impressions Hip/Pelvis X-Ray 06/11/20 11:13 IMPRESSION: 1
--- NOTE | 2020-06-14 11:18 | WPDNEUROLOGY ---
Neurology EEG Report General Information Date of Study: 06/12/20 TEST EEG DIAGNOSIS multiple falls CONDITION OF RECORDING awake drowsy and sleep EEG NUMBER [id number] CLINICAL HISTORY patient reported she had a seizure yesterday and then later on in the day she fell. EEG DESCRIPTION Basic resting occipital frequency consists of fairly well-organized low to medium voltage 8 to 10 hertz per 2nd alpha admixed with voltage 15 to 18 hertz per 2nd beta activity. During drowsiness low-voltage beta activity seen diffusely admixed with waxing and waning posterior alpha rhythm. Bilateral symmetrical sleep activity seen during sleep in addition to multiple artifacts hyperventilation not done. Photic stimulation not done. Non paroxysmal. Nonfocal. Nonlateralizing. IMPRESSION No significant abnormalities noted
== END 2020-06-12 17:23 | disposition home or self-care (01) ==
LOC: ANHED 14:25 → ANH3MED 06-12 02:47
PROVIDERS: Emergency Medicine Emergency Medical Services; Nurse Practitioner; Admitting Provider Internal Medicine; Emergency Provider General Practice; PCP Family Medicine; Visit Provider Family Medicine
DX: S89.92XA Unspecified injury of left lower leg, initial encounter (principal); S80.01XA Contusion of right knee, initial encounter; E86.0 Dehydration; N17.9 Acute kidney failure, unspecified; R53.1 Weakness; W19.XXXA Unspecified fall, initial encounter; I10 Essential (primary) hypertension; E78.5 Hyperlipidemia, unspecified; E11.9 Type 2 diabetes mellitus without complications; G89.29 Other chronic pain; F41.8 Other specified anxiety disorders; F12.90 Cannabis use, unspecified, uncomplicated; M17.12 Unilateral primary osteoarthritis, left knee; Z91.81 History of falling; Z79.84 Long term (current) use of oral hypoglycemic drugs
CPT/HCPCS: 36415; 51701; 71045; 73502; 73564; 80048; 80307; 81003; 83605; 83735; 84443; 85025; 95816; 96361; 96374; 96375; 96376; 97161; 97165; 99285; A9270; G0378; J0131; J3475; J7030; J7120

== ENCOUNTER 2021-12-25 12:33 | Emergency (ER) | payer MEDICARE, MEDICAID, SELFPAY ==
--- NOTE | ~2021-12-25 | XR_ITS ---
XR ribs LT 2V DATE: 12/25/2021 13:30 INDICATION: Fall. Lateral left chest pain. TECHNIQUE: 3 views of left ribs COMPARISON: 06/11/2020 portable AP chest FINDINGS: Heart size normal. No hilar or mediastinal enlargement. Chronic increased prominence of the interstitial markings, likely due to chronic interstitial fibrotic changes. No pulmonary consolidati on, pleural effusion or pneumothorax. Diffuse osteopenia. No left rib fracture is detected. Thoracic and lumbar scoliosis. Status post bilateral L5-S1 posterior surgical spinal fusion. Right total hip arthroplasty. Prominent amount of fecal material in the colon. IMPRESSION: Osteopenia; no apparent left rib fracture Reviewed, dictated and finalized at location C.
--- NOTE | ~2021-12-25 | XR_ITS ---
EXAMINATION: XR elbow LT 2V DATE: 12/25/2021 13:30 INDICATION: Shoulder left elbow pain and laceration post fall 2 days prior TECHNIQUE: Anteroposterior, two oblique and lateral views of the left elbow were obtained. COMPARISON: None. FINDINGS: Alignment is normal. No fracture or joint effusion. Mild osteoarthritis with mild nonuniform joint sp yfn narrowing at the radiocapitellar and ulnotrochlear articulations of the elbow. Soft tissue swelli ng posterior to the elbow. No radiopaque foreign bodies. IMPRESSION: 1. Mild osteoarthritis at the left elbow. No acute osseous abnormality, joint effusion or radiopaque foreign bodies. Reviewed, dictated and finalized at location A. IMPRESSION: 1. Mild osteoarthritis at the left elbow. No acute osseous abnormality, joint e ffusion or radiopaque foreign bodies.
--- NOTE | ~2021-12-25 | XR_ITS ---
EXAMINATION: XR hip LT min 2V DATE: 12/25/2021 13:30 INDICATION: Left hip pain post fall 2 days prior TECHNIQUE: Anteroposterior and frog-leg lateral views of the left hip were obtained. COMPARISON: 06/11/2020 FINDINGS: Partially visualized right total hip arthroplasty and posterior bilateral plates and pedicle screw fi xation for L5-S1 posterior spinal fusion procedure which is only partially visualized but appears unr emarkable on the provided images. Normal alignment at the left hip. No fracture or suspected avascula r necrosis. Mild left hip osteoarthritis with mild joint space narrowing at the posterior aspect of t he joint space and tiny marginal osteophytes about the femoral head. IMPRESSION: 1. Mild left hip osteoarthritis. No acute osseous abnormality. Reviewed, dictated and finalized at location A.
[2021-12-25 12:50] VITALS: BP 112/74; PULSE 90; RESP 18; TEMP 36.5; O2SAT 94
--- NOTE | 2021-12-25 14:24 | ED.FALL ---
HPI - Fall General Chief Complaint: Fall Stated Complaint: fall with left shoulder and hip pain Time Seen by Provider: 12/25/21 13:14 History of Present Illness HPI Narrative: Patient is a 71-year-old female who presents the ER with body aches after fall 2 days ago. She was knocked over by her friends Laurie and fell onto some concrete steps. She hit her head but did not lose consciousness. She is on no blood thinning agents. No headache or change in vision or change in hearing. She reports that her main injuries are related to her left elbow and hip and chest wall because she landed on her left side. She has left anterior chest wall pain is worse with the occasional deep breath. She also has a skin tear and bruising over her left elbow where she struck it. She has mild bruising to her left wrist but no range of motion deficit. She reports she is having no pain over the last 2 days but developed discomfort today so she thought she should be evaluated. Patient does take Percocet/tramadol at home. Related Data Home Medications Medication Instructions Recorded Confirmed atorvastatin 80 mg tablet 80 mg PO HS 11/16/19 06/11/20 cyclobenzaprine 10 mg tablet 10 mg PO TID PRN Muscle Spasm 11/16/19 06/11/20 lisinopril 20 1 tablet PO BID 11/16/19 06/11/20 mg-hydrochlorothiazide 12.5 mg tablet metformin 1,000 mg tablet 1,000 mg PO BID 11/16/19 06/11/20 omeprazole 40 mg capsule,delayed 40 mg PO BID 11/16/19 06/11/20 release oxycodone-acetaminophen 10 mg-325 1 tablet PO Q4H PRN Pain 11/16/19 06/11/20 mg tablet tramadol 50 mg tablet 50 mg PO PRN 11/16/19 06/11/20 Allergies Allergy/AdvReac Type Severity Reaction Status Date / Time influenza virus vaccine, Allergy Severe Hives / Verified 06/11/20 10:28 specific Red Face NSAIDS (Non-Steroidal AdvReac Mild Unknown Verified 06/11/20 10:28 Anti-Inflamma INFLAMMATORY DRUGS AdvReac Unknown TONGUE Uncoded 06/11/20 10:28 SWELLS Review of Systems Review of Systems: All systems reviewed & are unremarkable except as noted in HPI and below Constitutional: Constitutional: Denies chills and Denies fever(s) ENT: Denies nasal congestion and Denies sore throat Cardiovascular: Cardiovascular: Reports chest pain (Chest wall), Denies rapid heart rate and Denies radiating jaw, neck or arm pain Respiratory: Respiratory: Denies cough, Denies dyspnea and Denies wheezing Gastrointestinal: Gastrointestinal: Denies abdominal pain, Denies nausea and Denies vomiting Musculoskeletal: Musculoskeletal: Reports myalgias, Reports arthralgias and Denies muscle cramps Integumentary/Breasts: Comments: Left elbow skin tear. Left arm bruising. Neurologic: Denies syncope, Denies headache(s), Denies focal weakness and Denies numbness PMF Past Medical History Medical History (Updated 12/25/21 @ 14:30 by Darren Christine MD) Anxiety Chronic pain Depression DM2 (diabetes mellitus, type 2) History of diabetes mellitus History of hyperlipidemia History of hypertension History of suicide attempt With ethylene glycol level greater than 40. 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 And she had twin boys. She lives in a shelter independent Living. She does not have a durable power commercial litigation attorney for healthcare. She is a
== END 2021-12-25 14:39 | disposition home or self-care (01) ==
PROVIDERS: Emergency Provider Emergency Medicine; PCP Family Medicine
DX: S51.012A Laceration without foreign body of left elbow, initial encounter (principal); R07.89 Other chest pain; F41.9 Anxiety disorder, unspecified; F32.9 Major depressive disorder, single episode, unspecified; E11.9 Type 2 diabetes mellitus without complications; I10 Essential (primary) hypertension; Z79.84 Long term (current) use of oral hypoglycemic drugs; W18.00XA Striking against unspecified object with subsequent fall, initial encounter
CPT/HCPCS: 71100; 73070; 73502; 99284

== ENCOUNTER 2022-03-07 09:57 | Emergency (ER) | payer MEDICARE, MEDICAID, SELFPAY ==
--- NOTE | ~2022-03-07 | XR_ITS ---
EXAMINATION: XR hip RT 2V w AP pelvis INDICATION: Right hip pain TECHNIQUE: AP view the pelvis and two views of the right hip are obtained. COMPARISON: 06/11/2020 FINDINGS: There are changes of right total hip arthroplasty. Bone alignment is normal. There is no fr acture. There is mild osteoarthritis of the left hip. There is no evidence of hardware failure or loo sening. There are surgical changes in the lumbosacral junction. IMPRESSION: 1. No acute osseous abnormality. Reviewed, dictated and finalized at location B.
[2022-03-07 10:04] VITALS: BP 128/70; PULSE 106; RESP 18; TEMP 36.1; O2SAT 100
--- NOTE | 2022-03-07 10:39 | ED.FALL ---
HPI - Fall General Chief Complaint: Fall Stated Complaint: R LEG PAIN AFTER DOG TRIPPED HER Time Seen by Provider: 03/07/22 10:35 History of Present Illness HPI Narrative: 72-year-old female presents to the emergency room for evaluation of right hip pain. She had a fall yesterday related to trying to get her dog. She landed on her right hip. She has a history of a right hip replacement. She has been able to ambulate but only with her walker. She has increased pain in hip with flexion and extension of the hip. Pain goes a little bit into her right thigh. She took her Percocet this morning at home that she is already prescribed. Related Data Home Medications Medication Instructions Recorded Confirmed atorvastatin 80 mg tablet 80 mg PO HS 11/16/19 06/11/20 cyclobenzaprine 10 mg tablet 10 mg PO TID PRN Muscle Spasm 11/16/19 06/11/20 lisinopril 20 1 tablet PO BID 11/16/19 06/11/20 mg-hydrochlorothiazide 12.5 mg tablet metformin 1,000 mg tablet 1,000 mg PO BID 11/16/19 06/11/20 omeprazole 40 mg capsule,delayed 40 mg PO BID 11/16/19 06/11/20 release oxycodone-acetaminophen 10 mg-325 1 tablet PO Q4H PRN Pain 11/16/19 06/11/20 mg tablet tramadol 50 mg tablet 50 mg PO PRN 11/16/19 06/11/20 Allergies Allergy/AdvReac Type Severity Reaction Status Date / Time influenza virus vaccine, Allergy Severe Hives / Verified 03/07/22 10:08 specific Red Face NSAIDS (Non-Steroidal AdvReac Mild Unknown Verified 03/07/22 10:08 Anti-Inflamma INFLAMMATORY DRUGS AdvReac Unknown TONGUE Uncoded 03/07/22 10:08 SWELLS Review of Systems Review of Systems: CONSTITUTIONAL: Denies fever, chills, or sweats. EYES: Denies visual changes, redness, or discharge. ENT: Denies rhinorrhea, congestion, sore throat, or otalgia. CARDIOVASCULAR: Denies chest pain, palpitations, or edema. RESPIRATORY: Denies cough or dyspnea. GASTROINTESTINAL: Denies abdominal pain, nausea, vomiting, or diarrhea. GENITOURINARY: Denies dysuria or hematuria. SKIN: Denies rash or itching. MUSCULOSKELETAL: As per HPI NEUROLOGIC: Denies headache, numbness, dizziness, or weakness. PSYCHIATRIC: Denies anxiety or depression. [facility] Past Medical History Medical History Anxiety Chronic pain Depression DM2 (diabetes mellitus, type 2) History of diabetes mellitus History of hyperlipidemia History of hypertension History of suicide attempt With ethylene glycol level greater than 40. 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 And she had twin boys. She lives in a senior care independent Living. She does not have a durable power county attorney for healthcare. She is a full code. She never smoked. Does not use any alcohol or illicit drugs. However the patient states that she uses medical marijuana. She is disabled Smoking status: Current some day smoker Second hand tobacco smoke exposure: Yes Additional smoking assessment comments: only smoke marijuanna Alcohol intake: former Substance use: current Substance use type: marijuana Other substance usage details: For back pain once per week Last use: 06-10-20 Additional occupation/education comments: Disability Gender identity (if verbalized by the patient): Femal
[2022-03-07 11:27] VITALS: BP 118/72; PULSE 97; RESP 19; O2SAT 100
== END 2022-03-07 11:28 | disposition home or self-care (01) ==
PROVIDERS: Emergency Provider Nurse Practitioner Family; PCP Family Medicine
DX: S76.011A Strain of muscle, fascia and tendon of right hip, initial encounter (principal); W01.0XXA Fall on same level from slipping, tripping and stumbling without subsequent striking against object, initial encounter; E11.9 Type 2 diabetes mellitus without complications; I10 Essential (primary) hypertension; E78.5 Hyperlipidemia, unspecified; F41.9 Anxiety disorder, unspecified; F32.A Depression, unspecified; G89.29 Other chronic pain; Z91.51 Personal history of suicidal behavior; Z96.641 Presence of right artificial hip joint; Z79.84 Long term (current) use of oral hypoglycemic drugs; Z79.891 Long term (current) use of opiate analgesic; F12.90 Cannabis use, unspecified, uncomplicated
CPT/HCPCS: 73502; 99283

== ENCOUNTER 2022-06-24 19:24 | Emergency (ER) | payer MEDICARE, MEDICAID, SELFPAY ==
--- NOTE | ~2022-06-24 | CT_ITS ---
EXAMINATION: CT brain wo con DATE: 06/24/2022 20:17 INDICATION: ams . TECHNIQUE: Computed tomography (CT) of the head was performed without intravenous contrast. The mA wa s adjusted according to patient size. Iterative reconstruction technique was employed. The dose-lengt h product was 529.67 mGy-cm. COMPARISON: 06/07/2020. FINDINGS: No acute intracranial hemorrhage or extra-axial fluid collection. No hydrocephalus, mass, or herniation. No acute ischemic infarct. Unremarkable dural venous sinus attenuation. No acute osseous abnormality. The aerated spaces are clear. Mild chronic white matter change. Atherosclerotic intracranial calcifications. IMPRESSION: No acute intracranial process. Reviewed, dictated and finalized at location K. [employer]
--- NOTE | ~2022-06-24 | XR_ITS ---
EXAMINATION: XR chest 1V portable Exam Date/Time: 06/24/2022 19:50 PHOTO TECH HISTORY: ams X TODAY, HX HTN Comparison: 06/11/2020. RESULT: Lines, tubes, and devices: None. Lungs and pleura: Increased diffuse bilateral reticular opacities. Subsegmental patchy right lower l obe airspace disease. Cardiomediastinal silhouette: Stable. Other: No acute osseous or upper abdominal finding. IMPRESSION: Right lower lung atelectasis/consolidation. Pulmonary opacities may represent interstitial edema in t he appropriate clinical context. Reviewed, dictated and finalized at location K. O TECH IMPRESSION: Right lower lung atelectasis/consolidation. Pulmonary opacities may represent i nterstitial edema in the appropriate clinical context.
[2022-06-24 19:31] VITALS: BP 119/74; PULSE 99; RESP 18; TEMP 36.8; O2SAT 99
--- NOTE | 2022-06-24 19:36 | ECG_ITS ---
Measurements Intervals Beyer Rate: 95 P: 46 ID: [id number] QRS: 27 QRSD: 98 T: 60 QT: 358 QTc: 452 Interpretive Statements SINUS RHYTHM BASELINE ARTIFACT- I, III, AVR, AVL, AVF NORMAL ECG COMPARED TO ECG 06/07/2020 11:00:37 NO SIGNIFICANT CHANGES Electronically Signed On 06-25-2022 6:36:45 [employer] by Ephraim Hernandez D.O.
[2022-06-24 19:49] LABS: Basophils Absolute Auto 0.1 K/mm3 (0.0-0.1); Basophils Percent Auto 0.5 % (0.2-1.2); Eosinophils Absolute Auto 0.1 K/mm3 (0-0.3); Eosinophils Percent Auto 0.7 % (0-4.4); Hemoglobin 11.8 g/dL (12.0-15.0); Immature Granulocyte Absolute 0.06 K/mm3 (0.00-0.031); Immature Granulocyte Percent A 0.5 % (0-0.5); Lymphocytes Absolute Auto 5.34 K/mm3 (0.9-3.2); Lymphocytes Percent Auto 40.2 % (18.3-44.2); Mean Corpuscular HGB Conc 32.8 g/dl (32-36); Mean Corpuscular Hemoglobin 31.5 pg (26-34); Mean Platelet Volume 9.5 fl (7.4-10.4); Monocytes Absolute Auto 1.1 K/mm3 (0.1-0.6); Monocytes Percent Auto 8.4 % (2.6-8.5); Neutrophils Absolute Auto 6.6 K/mm3 (1.3-6.7); Neutrophils Percent Auto 49.7 % (45.5-73.1); Platelet Count Result 458 k/mm3 (150-375); Red Blood Count 3.75 M/mm3 (4.2-5.4); Red Cell Distribution Width 14.7 % (11.5-14.5); White Blood Count 13.3 K/mm3 (4.5-10.0)
--- NOTE | 2022-06-24 19:49 | ED.GENADULT ---
HPI - General Adult General Chief complaint: Weakness Stated complaint: LETHARGY Time Seen by Provider: 06/24/22 19:33 Source: EMS and RN notes reviewed History of Present Illness HPI narrative: Patient presents emergency department from home via EMS for altered mental status. EMS was initially called for patient being lethargic and slow to respond. When they initially arrived the patient was slow to respond became progressively more awake in route. The patient does admit to taking Ativan as well as smoking marijuana today. The patient states she is unsure why she was here she denies any recent illness she denies any headache chest pain shortness of breath abdominal pain nausea or vomiting. Patient does have a prescription for Ativan filled on 06/16/2022 for 30 tablets was only 5 remaining but states she only took 1 today she denies any suicidal homicidal ideation Related Data Home Medications Medication Instructions Recorded Confirmed atorvastatin 80 mg tablet 80 mg PO HS 11/16/19 06/11/20 cyclobenzaprine 10 mg tablet 10 mg PO TID PRN Muscle Spasm 11/16/19 06/11/20 lisinopril 20 1 tablet PO BID 11/16/19 06/11/20 mg-hydrochlorothiazide 12.5 mg tablet metformin 1,000 mg tablet 1,000 mg PO BID 11/16/19 06/11/20 omeprazole 40 mg capsule,delayed 40 mg PO BID 11/16/19 06/11/20 release oxycodone-acetaminophen 10 mg-325 1 tablet PO Q4H PRN Pain 11/16/19 06/11/20 mg tablet tramadol 50 mg tablet 50 mg PO PRN 11/16/19 06/11/20 Allergies Allergy/AdvReac Type Severity Reaction Status Date / Time influenza virus vaccine, Allergy Severe Hives / Verified 03/07/22 10:08 specific Red Face NSAIDS (Non-Steroidal AdvReac Mild Unknown Verified 03/07/22 10:08 Anti-Inflamma INFLAMMATORY DRUGS AdvReac Unknown TONGUE Uncoded 03/07/22 10:08 GARY Review of Systems Review of Systems: Gen.: Denies fevers or chills Eyes: Denies eye pain or visual change ENT: Denies congestion Respiratory: Denies shortness of breath or cough CV: Denies chest pain or palpitations GI: Denies abdominal pain nausea, emesis or diarrhea Musculoskeletal: Denies back pain or muscle pain Neuro: See HPI Skin: Denies rash Except as documented, all other systems reviewed and negative [facility] Past Medical History Medical History Anxiety Chronic pain Depression DM2 (diabetes mellitus, type 2) History of diabetes mellitus History of hyperlipidemia History of hypertension History of suicide attempt With ethylene glycol level greater than 40. 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 And she had twin boys. She lives in a [facility] independent Living. She does not have a durable power deputy prosecuting attorney for healthcare. She is a full code. She never smoked. Does not use any alcohol or illicit drugs. However the patient states that she uses medical marijuana. She is disabled Smoking status: Current some day smoker Second hand tobacco smoke exposure: Yes Additional smoking assessment comments: only smoke marijuanna Alcohol intake: former Substance use: current Substance use type: marijuana Other substance usage details: For back pain once per week Last use: 06-10-20 Additional occupation/education com
[2022-06-24 19:56] LABS: Add Urine Microscopic? YES; Appearance Urine Clear (Clear); Bilirubin Urine Negative (Negative); Blood Urine Negative (Negative); Color Urine Yellow (Yellow); Glucose Urine UA 3+ mg/dL (Negative); Ketones Urine Negative (Negative); Leukocyte Esterase Ur Negative LEU/UL (Negative); Nitrate Urine Negative (Negative); Protein Urine Negative (Negative); Specific Grav Ur 1.015 (1.001-1.035); Urobilinogen Urine 0.2 mg/dL (<2.0); pH Urine 6.5 (5.0-9.0)
[2022-06-24 19:58] LABS: Mucus Urine Rare /lpf; RBC Urine 0-2 /hpf (0-2)
[2022-06-24 19:58] LABS: Ethanol < 10 mg/dL (<10)
[2022-06-24 20:05] LABS: Alanine Aminotransferase 21 U/L (6-35); Albumin Level 3.9 g/dL (3.5-5.1); Alkaline Phosphatase 77 U/L (38-126); Anion Gap 6 mmol/L (8-16); Aspartate Amino Transferase 28 U/L (14-36); Bilirubin,Total 0.2 mg/dL (0.2-1.3); Blood Urea Nitrogen 12 mg/dL (7-17); Calcium 8.4 mg/dL (8.4-10.2); Carbon Dioxide 28 mmol/L (22-30); Chloride 97 mmol/L (98-107); Estimated CRCL calculation 63 ml/min; Estimated Glomerular Filt Rate > 60; Glucose 295 mg/dL (65-110); Potassium 3.4 mmol/L (3.4-5.0); Sodium 131 mmol/L (137-145)
[2022-06-24 20:15] LABS: Amphetamine Screen Urine Negative (Negative); Barbiturate Screen Urine Negative (Negative); Benzodiazepines Screen Urine Negative (Negative); Cannabinoid Screen Urine Positive (Negative); Cocaine Screen Urine Negative (Negative); Methadone Screen Urine Negative (Negative); Opiate Screen Urine Positive (Negative); Phencyclidine Screen Urine Negative (Negative)
--- NOTE | 2022-06-24 21:43 | PC.NURSE ---
Patient originally was going to leave AMA. While in w/c up front, scan report came back clear and provider was able to discharge her. No med was given.
[2022-06-24 21:45] VITALS: BP 124/72; PULSE 68; RESP 16; TEMP 36.6; O2SAT 98
== END 2022-06-24 21:47 | disposition home or self-care (01) ==
PROVIDERS: Emergency Provider Emergency Medicine; PCP Family Medicine
DX: J18.9 Pneumonia, unspecified organism (principal); F12.10 Cannabis abuse, uncomplicated; E11.9 Type 2 diabetes mellitus without complications; E78.5 Hyperlipidemia, unspecified; I10 Essential (primary) hypertension; F32.A Depression, unspecified; F41.9 Anxiety disorder, unspecified; Z90.81 Acquired absence of spleen; Z90.710 Acquired absence of both cervix and uterus; Z96.612 Presence of left artificial shoulder joint; Z96.641 Presence of right artificial hip joint; Z77.22 Contact with and (suspected) exposure to environmental tobacco smoke (acute) (chronic); Z79.84 Long term (current) use of oral hypoglycemic drugs; Z79.899 Other long term (current) drug therapy
CPT/HCPCS: 36415; 70450; 71045; 80053; 80307; 81001; 85025; 93005; 99284

== ENCOUNTER 2023-04-29 01:12 | Day surgery (SDC) | payer MEDICARE, MEDICAID, SELFPAY ==
[2023-04-24 15:16] VITALS: BMI 18.9
--- NOTE | 2023-04-25 11:12 | SUR.PREOP ---
Patient called regarding upcoming procedure. Reviewed preop instructions, appointment times, and procedure prep.
[2023-04-29 12:42] VITALS: BP 140/85; PULSE 99; RESP 20; TEMP 36.9; O2SAT 100
--- NOTE | 2023-04-29 12:45 | PM.HPGS ---
History of Present Illness History of Present Illness Consent: Risks, benefits, and alternatives have been discussed and questions answered. Patient agrees to proceed with procedure. Chief complaint: GERD with Esophagitis without hemorrhage Narrative: Li De Los Santos is a 73 year old female referred for EGD. Patient gives a history of lifelong acid reflux for many years. She has been on omeprazole 40mg p.o. b.i.d. for some time. She states that despite taking this she has had substernal burning and heartburn. In the past tried ranitidine and other medications that failed to alleviate symptoms. Her current dose of omeprazole does not seem to help. She does not take it as prescribed sometimes will take the medications more frequently or early. She notices most of her heartburn in the chest. She denies any dysphagia. She denies any bleeding or weight loss. Patient presents today for EGD because of ongoing heartburn. Patient gives a history of hiatal hernia repair more than 10 years ago a [facility]. These records are not available for review. Review of Systems Review of Systems: Review of systems noncontributory. [facility] Past Medical History Medical History Anxiety Chronic pain Depression DM2 (diabetes mellitus, type 2) History of diabetes mellitus History of hyperlipidemia History of hypertension History of suicide attempt With ethylene glycol level greater than 40. 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 And she had twin boys. She lives in a alf independent Living. She does not have a durable power distillation operator helper for healthcare. She is a full code. She never smoked. Does not use any alcohol or illicit drugs. However the patient states that she uses medical marijuana. She is disabled Smoking status: Current some day smoker Second hand tobacco smoke exposure: Yes Additional smoking assessment comments: only smoke marijuanna Substance use: current Substance use type: marijuana Other substance usage details: For back pain once per week Living arrangements: alone Occupation/Education: other Additional occupation/education comments: Disability Gender identity (if verbalized by the patient): Female Spiritual care concerns: No Meds Home Medications and Allergies Home Medications Medication Instructions Recorded Confirmed Type atorvastatin 80 mg tablet 80 mg PO HS 11/16/19 04/24/23 History lisinopril 20 1 tablet PO BID 11/16/19 04/24/23 History mg-hydrochlorothiazide 12.5 mg tablet metformin 1,000 mg tablet 1,000 mg PO BID 11/16/19 04/24/23 History omeprazole 40 mg capsule,delayed 40 mg PO BID 11/16/19 04/24/23 History release oxycodone-acetaminophen 10 mg-325 1 tablet PO Q4H PRN Pain 11/16/19 04/24/23 History mg tablet tramadol 50 mg tablet 50 mg PO PRN 11/16/19 04/24/23 History Allergies Allergy/AdvReac Type Severity Reaction Status Date / Time influenza virus vaccine, Allergy Severe Hives / Verified 04/29/23 12:40 specific Red Face NSAIDS (Non-Steroidal AdvReac Mild Unknown Verified 04/29/23 12:40 Anti-Inflamma INFLAMMATORY DRUGS AdvReac Unknown TONGUE Uncoded 04/29/23 12:40 SWELLS Vital Signs Vital S
[2023-04-29] MEDS: LACTATED RINGERS 1,000 ML 150 ML IV CONT (12:56)
[2023-04-29 13:00] LABS: Glucose Point of Care 201 mg/dl (65-105)
--- NOTE | 2023-04-29 13:48 | SUR.PREOP ---
Patient made aware that Dr Gan is running behind and updated to plan of care. Extra pillow and blanket provided.
--- NOTE | 2023-04-29 14:05 | WPDANESEPPF ---
Anes - Initial Pre Proc Eval Procedure: Operation Date: 04/29/23 13:30 Proposed Procedures p Esophagogastroduodenoscopy - Luis Gan MD Date/Time: 04/29/23 14:05 Surgeon: Luis Gan MD Pre Op Diagnosis: GERD with Esophagitis without hemorrhage Patient Data Age: 73 Gender: F Height: 1.55 m Weight: 46.8 kg Last Vital Signs Temp 98.5 F 04/29/23 12:42 Pulse 99 04/29/23 12:42 Resp 20 04/29/23 12:42 BP 140/85 04/29/23 12:42 Pulse Ox 100 04/29/23 12:42 O2 Del Method Room Air 04/29/23 12:42 Allergies Allergy/AdvReac Type Severity Reaction Status Date / Time influenza virus vaccine, Allergy Severe Hives / Verified 04/29/23 12:40 specific Red Face NSAIDS (Non-Steroidal AdvReac Mild Unknown Verified 04/29/23 12:40 Anti-Inflamma INFLAMMATORY DRUGS AdvReac Unknown TONGUE Uncoded 04/29/23 12:40 SWELLS Home Medications Medication Instructions Recorded Confirmed Type atorvastatin 80 mg tablet 80 mg PO HS 11/16/19 04/24/23 History lisinopril 20 1 tablet PO BID 11/16/19 04/24/23 History mg-hydrochlorothiazide 12.5 mg tablet metformin 1,000 mg tablet 1,000 mg PO BID 11/16/19 04/24/23 History omeprazole 40 mg capsule,delayed 40 mg PO BID 11/16/19 04/24/23 History release oxycodone-acetaminophen 10 mg-325 1 tablet PO Q4H PRN Pain 11/16/19 04/24/23 History mg tablet tramadol 50 mg tablet 50 mg PO PRN 11/16/19 04/24/23 History Laboratory Tests 04/29/23 12:55 POC Capillary Glucose 201 H mg/dl (65-105) Patient hx anesthesia problems: none Family hx anesthesia problems: none Results Review: All pre-operative results and documents have been reviewed as part of the pre-operative evaluation. [facility] Past Medical History Medical History Anxiety Chronic pain Depression DM2 (diabetes mellitus, type 2) History of diabetes mellitus History of hyperlipidemia History of hypertension History of suicide attempt With ethylene glycol level greater than 40. 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 And she had twin boys. She lives in a [facility] independent [facility]. She does not have a durable power ip attorney for healthcare. She is a full code. She never smoked. Does not use any alcohol or illicit drugs. However the patient states that she uses medical marijuana. She is disabled Smoking status: Current some day smoker Second hand tobacco smoke exposure: Yes Additional smoking assessment comments: only smoke marijuanna Substance use: current Substance use type: marijuana Other substance usage details: For back pain once per week Living arrangements: alone Occupation/Education: other Additional occupation/education comments: Disability Gender identity (if verbalized by the patient): Female Spiritual care concerns: No Anes - Eval Final PreProcedure Day of Procedure 04/29/23 14:05 Patient weight: normal Heart: regular rate and rhythm Lungs: clear to auscultation Airway: Mallampati scale class II Neurological: alert and oriented Last oral intake: >/= 8 hours ASA classification: III Emergent: no Anesthetic plan: proceed Anesthesia type and monitoring: general GIVS and
[2023-04-29 14:42] VITALS: BP 131/81; PULSE 78; RESP 18; O2SAT 100
[2023-04-29 14:52] VITALS: BP 136/78; PULSE 80; RESP 18; O2SAT 100
[2023-04-29 15:02] VITALS: BP 137/89; PULSE 82; RESP 18; O2SAT 100
== END 2023-04-29 15:12 | disposition home or self-care (01) ==
PROVIDERS: PCP Nurse Practitioner Family; Visit Provider Internal Medicine Gastroenterology
PROC: 0DJ08ZZ Inspection of Upper Intestinal Tract, Via Natural or Artificial Opening Endoscopic (ICD-10-PCS; CPT 43235; principal; 2023-04-29 13:30)
DX: K21.00 Gastro-esophageal reflux disease with esophagitis, without bleeding (principal); K44.9 Diaphragmatic hernia without obstruction or gangrene; I10 Essential (primary) hypertension; E78.5 Hyperlipidemia, unspecified; E11.9 Type 2 diabetes mellitus without complications; F41.9 Anxiety disorder, unspecified; F32.A Depression, unspecified; G89.29 Other chronic pain; Z79.891 Long term (current) use of opiate analgesic; Z91.51 Personal history of suicidal behavior; F12.90 Cannabis use, unspecified, uncomplicated
CPT/HCPCS: 43235; 82948; J2405; J2704; J3010; J7120

== ENCOUNTER 2023-05-23 11:30 | Emergency (ER) | payer MEDICARE, MEDICAID, SELFPAY ==
--- NOTE | ~2023-05-23 | XR_ITS ---
XR knee LT min 4V DATE: 05/23/2023 15:01 INDICATION: Pain after twisting injury 3 days ago. Bruising. TECHNIQUE: 4 views COMPARISON: None FINDINGS: There is osteopenia. No fracture or dislocation or joint effusion, periosteal reaction or bone destruction is detected. There is prominent periarticular spurring of the lateral compartment. No radiopaque intra-articular l oose body or chondrocalcinosis is noted. Prominent arterial calcifications are noted, including femoral and trifurcation arteries. IMPRESSION: Osteopenia No fracture or dislocation Reviewed, dictated and finalized at location A. [employer]
[2023-05-23 11:59] VITALS: BP 114/72; PULSE 117; RESP 18; TEMP 36.3; O2SAT 100
--- NOTE | 2023-05-23 15:24 | ED.LOWEXIN ---
HPI - Extremity Injury (Lower) General Chief Complaint: Extremity Injury, Lower Stated Complaint: sent from for knee pain Time Seen by Provider: 05/23/23 14:38 History of Present Illness HPI Narrative: 73F p/w L knee pain, dog pounced on her 3 d ago and she fell and landed on her knee, has had pain since then. Hasn't taken anything for pain. Related Data Home Medications Medication Instructions Recorded Confirmed atorvastatin 80 mg tablet 80 mg PO HS 11/16/19 04/24/23 lisinopril 20 1 tablet PO BID 11/16/19 04/24/23 mg-hydrochlorothiazide 12.5 mg tablet metformin 1,000 mg tablet 1,000 mg PO BID 11/16/19 04/24/23 oxycodone-acetaminophen 10 mg-325 1 tablet PO Q4H PRN Pain 11/16/19 04/24/23 mg tablet tramadol 50 mg tablet 50 mg PO PRN 11/16/19 04/24/23 Allergies Allergy/AdvReac Type Severity Reaction Status Date / Time influenza virus vaccine, Allergy Severe Hives / Verified 05/23/23 11:30 specific Red Face NSAIDS (Non-Steroidal AdvReac Mild Unknown Verified 05/23/23 11:30 Anti-Inflamma INFLAMMATORY DRUGS AdvReac Unknown TONGUE Uncoded 05/23/23 11:30 SWELLS Review of Systems Review of Systems: All systems reviewed & are unremarkable except as noted in HPI and below PMFSH Past Medical History Medical History Anxiety Chronic pain Depression DM2 (diabetes mellitus, type 2) History of diabetes mellitus History of hyperlipidemia History of hypertension History of suicide attempt With ethylene glycol level greater than 40. 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 And she had twin boys. She lives in a [facility]. She does not have a durable power state attorney for healthcare. She is a full code. She never smoked. Does not use any alcohol or illicit drugs. However the patient states that she uses medical marijuana. She is disabled Smoking status: Current some day smoker Second hand tobacco smoke exposure: Yes Additional smoking assessment comments: only smoke marijuanna Substance use: current Substance use type: marijuana Other substance usage details: For back pain once per week Living arrangements: alone Occupation/Education: other Additional occupation/education comments: Disability Gender identity (if verbalized by the patient): Female Spiritual care concerns: No Exam Narrative: EXAMINATION OF ORGAN SYSTEMS/BODY AREAS: Constitutional: Vital signs per nursing GENERAL:[No acute distress, non-toxic appearing.] HEAD: Normal with no signs of head trauma. EYES: EOMI, conjunctiva normal ENT: Hearing grossly intact LUNGS: Nonlabored breathing. HEART: [Regular rate and rhythm]; normal left DP pulse ABD: [Soft], [nontender to palpation] EXT: Able to extend/flex knee, some tenderness suprapatellar, bruising to knee, no obvious deformity SKIN: Ecchymosis left knee NEURO: [Alert and oriented x 3. No gross focal sensory or strength deficits.] PSYCH: Normal affect Course Vital Signs Vital signs: Vital Signs Temperature 97.3 F L 05/23/23 11:59 Pulse Rate 117 H 05/23/23 11:59 Respiratory Rate 18 05/23/23 11:59 Blood Pressure 114/72 05/23/23 11:59 Pulse Oximetry 100 05/23/23 11:
[2023-05-23] MEDS: ACETAMINOPHEN 500 MG TABLET 1000 MG PO (16:04)
[2023-05-23 16:07] VITALS: BP 127/108; PULSE 107; RESP 19; O2SAT 98
== END 2023-05-23 16:09 | disposition home or self-care (01) ==
PROVIDERS: Emergency Provider Emergency Medicine; PCP Nurse Practitioner Family
DX: S80.02XA Contusion of left knee, initial encounter (principal); E11.9 Type 2 diabetes mellitus without complications; E78.5 Hyperlipidemia, unspecified; I10 Essential (primary) hypertension; Z96.612 Presence of left artificial shoulder joint; Z96.651 Presence of right artificial knee joint; Z90.81 Acquired absence of spleen; Z90.710 Acquired absence of both cervix and uterus; Z79.84 Long term (current) use of oral hypoglycemic drugs; W54.1XXA Struck by dog, initial encounter
CPT/HCPCS: 73564; 99283; A9270

== ENCOUNTER 2024-02-07 09:17 | Inpatient (IN) | payer MEDICARE, MEDICAID, SELFPAY ==
--- NOTE | ~2024-02-07 | XR_ITS ---
EXAMINATION: XR foot LT min 3V DATE: 02/07/2024 12:18 INDICATION: Left foot pain and swelling TECHNIQUE: Dorsoplantar, two oblique and lateral views of the left foot were obtained. COMPARISON: None. FINDINGS: Bone alignment is normal. No fracture. Polyarticular osteoarthritis, severe at the second tarsal meta tarsal joints with prominent marginal hypertrophic changes and moderate at the naviculocuneiform and third tarsal metatarsal joints and mild at the remaining tarsal metatarsal, first metatarsophalangeal and multiple interphalangeal joints. Soft tissue swelling throughout the foot most prominent about t he dorsum of the forefoot at the anterolateral ankle. IMPRESSION: 1. Polyarticular osteoarthritis, 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 No acute os seous abnormality. Reviewed, dictated and finalized at location A. IMPRESSION: 1. Polyarticular osteoarthritis, 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 No acute osseous abnormality.
--- NOTE | ~2024-02-07 | CT_ITS ---
CT foot LT w con DATE: 02/07/2024 14:10 INDICATION: Suspected abscess by calcaneus TECHNIQUE: Noncontrast axial images through the foot with sagittal and coronal reconstructions COMPARISON: None FINDINGS: There is approximately 12.6 x 28 mm mildly peripherally enhancing irregular encapsulated multilocular complicated fluid adjacent to the posteroinferior aspect of the calcaneus. Abscess is not excluded. There is extensive soft tissue stranding of the remaining subcutaneous tissues along the plantar aspe ct of the foot and very prominent dorsal lateral subcutaneous fluid/edema of the foot. There are osteoarthritic changes at the tibiotalar, tarsal and tarsometatarsal joints. Slight plantar calcaneal enthesopathy. No bone destruction suggestive of osteomyelitis is noted. IMPRESSION: Very prominent edema of the left foot; cannot exclude approximately 12.6 x 28 mm irregula r encapsulated multilocular abscess formation at the posterior inferior aspect of the calcaneus Polyarticular osteoarthritis No CT evidence of osteomyelitis is evident. Three-phase radionuclide bone scan would be more sensitiv e for detection of osteomyelitis. Reviewed, dictated and finalized at Location A. Reviewed, dictated and finalized at location J. IMPRESSION: Very prominent edema of the left foot; cannot exclude approximately 12.6 x 28 mm irregular encapsulated multilocular abscess formation at the post erior inferior aspect of the calcaneus Polyarticular osteoarthritis No CT evidence of osteomyelitis is evident. Three-phase radionuclide bone scan would be more sensitive for detection of osteomyelitis.
--- NOTE | ~2024-02-07 | US_ITS ---
EXAMINATION: US venous doppler [facility] DATE: 02/07/2024 13:04 INDICATION: Left lower limb pain and swelling TECHNIQUE: Grayscale ultrasound images without and with compression and Doppler ultrasound images of the left lower extremity veins were obtained. COMPARISON: None. FINDINGS: The visualized portions of left common femoral vein, profunda (deep) femoral vein, femoral vein, popl iteal vein, peroneal veins, posterior tibial veins, gastrocnemius vein and greater saphenous vein out flow are patent. IMPRESSION: 1. No deep venous thrombosis in the left lower limb. Reviewed, dictated and finalized at location A.
[2024-02-07 09:31] VITALS: BP 141/75; PULSE 104; RESP 20; TEMP 36.6; O2SAT 94
--- NOTE | 2024-02-07 13:22 | ED.GENADULT ---
HPI - General Adult General Chief complaint: Extremity Injury, Lower Stated complaint: left foot swelling Time Seen by Provider: 02/07/24 11:27 History of Present Illness HPI narrative: 74-year-old female presents emergency department for evaluation for increased pain and swelling of her left foot. Patient is diabetic. Patient states pain and swelling has worsened over the last few days. Family member did notice a black spot on her heel a few days ago. Patient states the pain is so bad she is unable to bear weight. Related Data Home Medications Medication Instructions Recorded Confirmed atorvastatin 80 mg tablet 80 mg PO HS 11/16/19 02/07/24 metformin 1,000 mg tablet 1,000 mg PO BID 11/16/19 02/07/24 oxycodone-acetaminophen 10 mg-325 1 tablet PO Q4H PRN Pain (Scale 11/16/19 02/07/24 mg tablet Score 7-10) tramadol 50 mg tablet 50 mg PO PRN PRN Pain (Scale Score 11/16/19 02/07/24 4-6) amitriptyline 50 mg tablet 50 mg PO DAILY 02/07/24 02/07/24 Allergies Allergy/AdvReac Type Severity Reaction Status Date / Time influenza virus vaccine, Allergy Severe Hives / Verified 05/23/23 11:30 specific [place] NSAIDS (Non-Steroidal AdvReac Mild Unknown Verified 05/23/23 11:30 Anti-Inflamma INFLAMMATORY DRUGS AdvReac Unknown TONGUE Uncoded 05/23/23 11:30 SWELLS Review of Systems Review of Systems: All systems reviewed & are unremarkable except as noted in HPI and below PMFSH Past Medical History Medical History Anxiety Chronic pain Depression DM2 (diabetes mellitus, type 2) History of diabetes mellitus History of hyperlipidemia History of hypertension History of suicide attempt With ethylene glycol level greater than 40. 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 And she had twin boys. She lives in a detention independent Living. She does not have a durable power assistant city attorney for healthcare. She is a full code. She never smoked. Does not use any alcohol or illicit drugs. However the patient states that she uses medical marijuana. She is disabled Smoking status: Never smoker Second hand tobacco smoke exposure: Yes Additional smoking assessment comments: only smoke marijuanna Alcohol intake: never Substance use: never Substance use type: marijuana Other substance usage details: For back pain once per week Do You Feel Safe in your Home?: Yes Lack of Transportation: No Lack of Food: Never True Current Housing: I Have Housing Concerned About Future Housing: No Difficulty Paying Gas/Electric Bills: No Difficulty Paying for Meds: No Currently Unemployed: No Education: High School Diploma/GED Difficulty w/ Childcare or Family Care: No Living arrangements: alone Occupation/Education: other Additional occupation/education comments: Disability Gender identity (if verbalized by the patient): Female Spiritual care concerns: No Exam Narrative: APPEARANCE: Well appearing, no pain, no distress, well-nourished. HEAD: normocephalic, atraumatic. EYES: PERRLA/EOMI, conjunctivae clear. NOSE: Normal no drainage EARS:TMS clear with good light reflex. THROAT: Pharynx clear, no exudate. NECK: Supple. No adenopathy, no rachelle
[2024-02-07 13:45] LABS: Basophils Absolute Auto 0.1 K/mm3 (0.0-0.1); Basophils Percent Auto 0.4 % (0.2-1.2); Eosinophils Absolute Auto 0.1 K/mm3 (0-0.3); Eosinophils Percent Auto 0.5 % (0-4.4); Hematocrit 31.2 % (37.0-47.0); Immature Granulocyte Absolute 0.21 K/mm3 (0.00-0.031); Immature Granulocyte Percent A 1.1 % (0-0.5); Lymphocytes Absolute Auto 2.86 K/mm3 (0.9-3.2); Lymphocytes Percent Auto 15.4 % (18.3-44.2); Mean Corpuscular HGB Conc 32.1 g/dl (32-36); Mean Corpuscular Hemoglobin 29.1 pg (26-34); Mean Corpuscular Volume 90.7 fl (80-100); Monocytes Absolute Auto 1.7 K/mm3 (0.1-0.6); Monocytes Percent Auto 9.3 % (2.6-8.5); Neutrophils Absolute Auto 13.6 K/mm3 (1.3-6.7); Neutrophils Percent Auto 73.3 % (45.5-73.1); Platelet Count Result 451 k/mm3 (150-375); Red Blood Count 3.44 M/mm3 (4.2-5.4); Red Cell Distribution Width 18.7 % (11.5-14.5); White Blood Count 18.6 K/mm3 (4.5-10.0)
[2024-02-07] MEDS: MORPHINE SULFATE (*CRX) 2 MG/ML INJ IV PUSH (13:48)
[2024-02-07] MEDS: CEFEPIME 2 GM/NS 50 ML 2 GM/50 ML BAG IVPB ×2 (13:57→20:44)
[2024-02-07 13:58] LABS: Lactic Acid Reflex 2.1 mmol/L (0.7-2.0)
[2024-02-07 14:00] LABS: Alanine Aminotransferase 12 U/L (6-35); Albumin Level 3.6 g/dL (3.5-5.1); Alkaline Phosphatase 99 U/L (38-126); Anion Gap 7 mmol/L (4-12); Aspartate Amino Transferase 20 U/L (14-36); Bilirubin,Total 0.2 mg/dL (0.2-1.3); Blood Urea Nitrogen 18 mg/dL (7-17); Calcium 8.6 mg/dL (8.4-10.2); Carbon Dioxide 29 mmol/L (22-30); Chloride 99 mmol/L (98-107); Estimated CRCL calculation 75 ml/min; Estimated Glomerular Filt Rate > 60; Glucose 141 mg/dL (65-110); Potassium 3.7 mmol/L (3.4-5.0); Sodium 135 mmol/L (137-145)
[2024-02-07 14:16] LABS: Procalcitonin 0.1 ng/mL
[2024-02-07] MEDS: metroNIDAZOLE 500 MG/ISO 100ML 500 MG/100 ML BAG 100 MG IVPB ×2 (14:27→20:44)
--- NOTE | 2024-02-07 15:25 | PM.IMHP ---
H&P: HPI History of Present Illness Date/Time: 02/07/24 15:25 Chief Complaint: Foot Swelling Narrative: 74 y/o F presents here with left foot swelling with PMH of diabetes, hyperlipidemia, hypertension, depression, anxiety, and chronic pain. The patient presents here from home via EMS for further evaluation of left foot swelling and pain. She reports pain and swelling started approximately 4 days ago. Day after the swelling started patient noticed that her ankle and foot became reddened and tightness increased. Patient reports a family member noticed that she had a black spot to her left heel yesterday. Patient does not check her feet and was unaware there was a wound. No known precipitating trauma or wound prior to changes to left foot that she is aware of. Denies fever, chills, or body aches. Denies hx of peripheral neuropathy. Reports compliance to her diabetes medications. Initial VS at presentation: 97.8? F, HR 104, RR 20, 141/75, and 94% on RA. ED workup showed: WBC 18.6, hemoglobin 10.0, creatinine 0.4 and number GFR, glucose 141, lactic 2.1, procalcitonin 0.1. Ultrasound of the LLE showed no DVT. Foot XR showed polyarticular osteoarthritis, moderate to severe. CT of the foot showed no evidence of osteomyelitis, prominent edema and cannot exclude approximately 12.6 x 28 mm irregular encapsulated multilocular abscess formation at the posterior inferior aspect of the calcaneus. Review of Systems Review of Systems: All systems reviewed & are unremarkable except as noted in HPI and below PMFSH Past Medical History Medical History Anxiety Chronic pain Depression DM2 (diabetes mellitus, type 2) History of diabetes mellitus History of hyperlipidemia History of hypertension History of suicide attempt With ethylene glycol level greater than 40. 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 And she had twin boys. She lives in a group home independent Living. She does not have a durable power trust and estates attorney for healthcare. She is a full code. She never smoked. Does not use any alcohol or illicit drugs. However the patient states that she uses medical marijuana. She is disabled Smoking status: Never smoker Second hand tobacco smoke exposure: Yes Additional smoking assessment comments: only smoke marijuanna Alcohol intake: never Substance use: never Substance use type: marijuana Other substance usage details: For back pain once per week Do You Feel Safe in your Home?: Yes Lack of Transportation: No Lack of Food: Never True Current Housing: I Have Housing Concerned About Future Housing: No Difficulty Paying Gas/Electric Bills: No Difficulty Paying for Meds: No Currently Unemployed: No Education: High School Diploma/GED Difficulty w/ Childcare or Family Care: No Living arrangements: alone Occupation/Education: other Additional occupation/education comments: Disability Gender identity (if verbalized by the patient): Female Spiritual care concerns: No Meds Home Medications and Allergies Home Medications Medication Instructions Recorded Confirmed Type atorvastatin 80 mg tablet 80 mg PO HS 11/16/19 02/07/24 History metformin 1,000 mg tablet 1,000
[2024-02-07] MEDS: VANCOMYCIN 1,250 MG/NS 250 ML 1,250 MG/250 ML BAG 166.67 MG IVPB (15:35)
--- NOTE | 2024-02-07 16:16 | ADMGEN ---
This patient, Li De Los Santos, was admitted to Medical Room 341-01. Patient/family oriented to hospital policies and general routines including ID bracelet, bed and alarms, visiting hours, pain management, procedures, bathroom and other care routines, personal items, smoking policy, room service/diet, and visiting hours. Information on how to activate the Rapid Response Team has been discussed. Patient/Family are encouraged to report perceived risks to care and to ask questions if they do not understand what they are told or what they should do.
[2024-02-07 16:43] LABS: Reflex Lactic Acid Yes or No Add Lactic
[2024-02-07 17:09] LABS: Glucose Point of Care 132 mg/dl (65-105)
[2024-02-07] MEDS: oxyCODONE/ACETAMINOPHEN (*CRX) 10-325 MG TABLET 1 TAB PO ×2 (17:15→20:54)
[2024-02-07] MEDS: SODIUM CHLORIDE 0.9% IV 1,000 ML 999 ML IV CONT (17:32)
[2024-02-07 17:51] LABS: Lactic Acid 1.1 mmol/L (0.7-2.0)
[2024-02-07 19:49] VITALS: BP 130/67; PULSE 94; RESP 17; TEMP 37.4; O2SAT 93
[2024-02-07] MEDS: ATORVASTATIN 40 MG TABLET 80 MG PO (20:44)
[2024-02-07] MEDS: PANTOPRAZOLE 40 MG TABLET PO (20:44)
[2024-02-07 20:51] LABS: Glucose Point of Care 226 mg/dl (65-105)
[2024-02-07] MEDS: AMITRIPTYLINE HCL 25 MG TABLET 50 MG PO (20:55)
--- NOTE | 2024-02-07 21:07 | PC.NURSE ---
Patient request time change of her amitriptyline, as she takes daily at night. Pharmacy notified.
[2024-02-08 04:39] VITALS: BP 138/75; PULSE 90; RESP 17; TEMP 36.8; O2SAT 97
[2024-02-08] MEDS: oxyCODONE/ACETAMINOPHEN (*CRX) 10-325 MG TABLET 1 TAB PO ×4 (04:50→21:03)
[2024-02-08 05:51] LABS: Hematocrit 30.9 % (37.0-47.0); Hemoglobin 9.7 g/dL (12.0-15.0); Mean Corpuscular HGB Conc 31.4 g/dl (32-36); Mean Corpuscular Hemoglobin 28.4 pg (26-34); Mean Corpuscular Volume 90.4 fl (80-100); Red Blood Count 3.42 M/mm3 (4.2-5.4); White Blood Count 14.2 K/mm3 (4.5-10.0)
[2024-02-08 05:52] LABS: Basophils Absolute Auto 0.1 K/mm3 (0.0-0.1); Basophils Percent Auto 0.6 % (0.2-1.2); Eosinophils Absolute Auto 0.1 K/mm3 (0-0.3); Eosinophils Percent Auto 0.9 % (0-4.4); Immature Granulocyte Absolute 0.13 K/mm3 (0.00-0.031); Immature Granulocyte Percent A 0.9 % (0-0.5); Lymphocytes Absolute Auto 2.11 K/mm3 (0.9-3.2); Lymphocytes Percent Auto 14.8 % (18.3-44.2); Mean Platelet Volume 9.6 fl (7.4-10.4); Monocytes Absolute Auto 1.3 K/mm3 (0.1-0.6); Monocytes Percent Auto 9.4 % (2.6-8.5); Neutrophils Absolute Auto 10.5 K/mm3 (1.3-6.7); Neutrophils Percent Auto 73.4 % (45.5-73.1); Platelet Count Result 448 k/mm3 (150-375); Red Cell Distribution Width 18.8 % (11.5-14.5)
[2024-02-08] MEDS: metroNIDAZOLE 500 MG/ISO 100ML 500 MG/100 ML BAG 100 MG IVPB ×3 (06:13→21:40)
[2024-02-08 06:16] LABS: Hemoglobin A1C 8.2 % (<5.7)
[2024-02-08 06:21] LABS: Alanine Aminotransferase 10 U/L (6-35); Albumin Level 3.2 g/dL (3.5-5.1); Alkaline Phosphatase 89 U/L (38-126); Anion Gap 6 mmol/L (4-12); Aspartate Amino Transferase 18 U/L (14-36); Bilirubin,Total 0.3 mg/dL (0.2-1.3); Blood Urea Nitrogen 11 mg/dL (7-17); CRP 11.7 mg/dL (<1.0); Calcium 8.3 mg/dL (8.4-10.2); Carbon Dioxide 27 mmol/L (22-30); Chloride 101 mmol/L (98-107); Estimated CRCL calculation 75 ml/min; Estimated Glomerular Filt Rate > 60; Glucose 173 mg/dL (65-110); Potassium 3.9 mmol/L (3.4-5.0); Sodium 134 mmol/L (137-145)
[2024-02-08 07:27] VITALS: O2SAT 95
--- NOTE | 2024-02-08 08:01 | PM.CNOR ---
Assessment and Plan Assessment and plan (1) Abscess of foot: Code(s): L02.619 - Cutaneous abscess of unspecified foot Status: Acute Assessment and Plan: 74-year-old woman with diabetes and peripheral neuropathy. Poorly controlled diabetes with hemoglobin A1c 8.2. 5 day history of increasing left heel swelling and pain. Exam shows small central necrotic area without open ulcer or drainage. Swelling and tenderness plantar heel. Starting show improvement with the antibiotics. New patient evaluation for chief complaint as above. History, physical exam and radiographs reviewed with the patient. Discussed the condition, nature, etiology and course of natural history with the patient. Treatment options including surgical and nonoperative treatment were reviewed. Risks and benefits of each as well as alternatives reviewed. The patient's questions were answered. Conservative treatment ice, compression and elevation. Continue IV antibiotics. We will continue to monitor. May require surgical drainage. (2) Type 2 diabetes mellitus with left diabetic foot ulcer: Code(s): E11.621 - Type 2 diabetes mellitus with foot ulcer; L97.529 - Non-pressure chronic ulcer of other part of left foot with unspecified severity Status: Acute History of Present Illness HPI Consult date: 02/08/24 Requesting physician: Gamaliel Oh MD Chief complaint: Diabetic Foot Ulcer Narrative: 74-year-old woman with diabetes admitted through the emergency room for left heel swelling and pain. Patient reports increasing pain and swelling plantar left heel the past 4- 5 days. Denies injury or known cause. Usually wears socks around the house. Family noticed skin change on the bottom of the heel. Patient presented to emergency room. CT scan showed questionable abscess and patient admitted. Started on IV antibiotics. Notes improvement in the swelling and pain since the antibiotics. No prior history of foot infection or ulceration. Review of Systems Constitutional: Constitutional: Denies fever(s) Eyes: Eyes: Denies blurry vision ENT: Reports Normal hearing present Cardiovascular: Cardiovascular: Denies chest pain and Denies dyspnea Respiratory: Respiratory: Denies dyspnea and Denies wheezing Gastrointestinal: Gastrointestinal: Denies abdominal pain Genitourinary: Genitourinary: Denies urinary urgency Musculoskeletal: Musculoskeletal: Reports as per HPI and Denies numbness Integumentary/Breasts: Skin/Breast: Denies changing lesions and Denies sores Neurologic: Reports Normal hearing present, Denies behavioral changes, Denies confusion, Denies numbness and Denies convulsions Psychiatric: Psychiatric: Denies behavioral changes, Denies confusion and Denies hallucinations Endocrine: Endocrine: Denies heat intolerance Hematologic/Lymphatic: Hematologic/Lymphatic: Denies easy bleeding Allergic/Immunologic: Allergic/Immunologic: Denies wheezing PMFSH Past Medical History Medical History Anxiety Chronic pain Depression DM2 (diabetes mellitus, type 2) History of diabetes mellitus History of hyperlipidemia History of hypertension History of suicide attempt With ethylene glycol level greater than 40. One round of dialysis Hypertension Surgical History Surgical History H/O arthroscopy of left knee H/O hernia repair H/O splenectomy H/O: hysterectomy History of back surgery X3 History of section, classical History of left shoulder replacement History of total right knee replacement (TKR) Family History Family History Mother Family history of Alzheimer's disease Heart disease Father Family history of emphysema COPD (chronic obstructive pulmonary disease) Social History Social History
[2024-02-08 08:29] LABS: Glucose Point of Care 155 mg/dl (65-105)
[2024-02-08] MEDS: VANCOMYCIN 1,000 MG/NS 250 ML 1,000 MG/250 ML BAG 250 MG IVPB (08:54)
[2024-02-08] MEDS: CEFEPIME 2 GM/NS 50 ML 2 GM/50 ML BAG IVPB ×2 (08:54→21:40)
[2024-02-08] MEDS: PANTOPRAZOLE 40 MG TABLET PO ×2 (08:54→21:03)
--- NOTE | 2024-02-08 09:08 | PM.IMPN ---
Progress Note: A&P Assessment and Plan (1) Sepsis: Qualifiers: Sepsis acute organ dysfunction status: without acute organ dysfunction Sepsis type: sepsis due to unspecified organism Qualified Code(s): A41.9 - Sepsis, unspecified organism Code(s): A41.9 - Sepsis, unspecified organism Status: Acute Assessment and Plan: - meets SIRS criteria: HR, RR, WBC. - lactic acid: 2.1 -> 1.1 - lactic elevated, procalcitonin added 0.1 - 30 mL/kg = 1380, 1L bolus added - suspected source: Left diabetic foot wound - started on cefepime, metronidazole, vancomycin - blood cultures drawn on 02/06 (2) Type 2 diabetes mellitus with left diabetic foot ulcer: Code(s): E11.621 - Type 2 diabetes mellitus with foot ulcer; L97.529 - Non-pressure chronic ulcer of other part of left foot with unspecified severity Status: Acute Assessment and Plan: -poorly controlled - Foot XR: Polyarticular osteoarthritis, 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 No acute osseous abnormality. - US of LLE: no DVT. - CT Foot: Very prominent edema of the left foot; cannot exclude approximately 12.6 x 28 mm irregular encapsulated multilocular abscess formation at the posterior inferior aspect of the calcaneus No CT evidence of osteomyelitis is evident. Three-phase radionuclide bone scan would be more sensitive for detection of osteomyelitis. - Ortho consulted, Leilani GAMING. Awaiting formal recs. - started on cefepime, Flagyl, vancomycin. - wound consulted - wound culture if obtainable - A1C 8.2 - trend labs (3) DM2 (diabetes mellitus, type 2): Qualifiers: Diabetes mellitus complication detail: with foot ulcer Diabetes mellitus complication status: with skin complications Diabetes mellitus exterminator helper termite insulin use: without detention use Qualified Code(s): E11.621 - Type 2 diabetes mellitus with foot ulcer; L97.509 - Non-pressure chronic ulcer of other part of unspecified foot with unspecified severity Code(s): E11.9 - Type 2 diabetes mellitus without complications Status: Acute Assessment and Plan: - hypoglycemia protocol - POC blood glucose ACHS - home medication: Hold metformin - correct regimen ordered - low dose TIDWM - A1C 7.2% in 2020, update - hematology nurse educator consulted (4) Hypertension: Qualifiers: Hypertension type: essential hypertension Qualified Code(s): I10 - Essential (primary) hypertension Code(s): I10 - Essential (primary) hypertension Status: Chronic Assessment and Plan: - chronic, currently 141/75 - no current home medications - monitor (5) Abscess of foot: Code(s): L02.619 - Cutaneous abscess of unspecified foot Status: Acute Assessment and Plan: - ortho consulted - notes reviewed: Conservative treatment ice, compression and elevation. Continue IV antibiotics. We will continue to monitor. May require surgical drainage. Plan Patient here with diabetic foot wound to to the left foot. Patient met SIRS criteria. Lactic elevated. IV fluids initiated. Started on cefepime, Flagyl, vancomycin. CT concerning for 12.6 x 28 mm irregular encapsulated multilocular abscess formation at the posterior inferior aspect of the calcaneus. Orthopedics consulted, awaiting recs. Wound consulted. Wound culture if obtainable. Continue tight glycemic control. Diet: Diabetic GI Prophylaxis: Not currently indicated DVT Prophylaxis: SCDs Lines: Peripheral Code Status: Full code Time Spent With Patient Time with patient: Greater than 35 minutes Subjective Date/time seen: 02/08/24 09:08 Interval history: Narrative: 74 y/o F presents here with left foot swelling with PMH of diabetes, hyperlipidemia, hypertension, depression, anxiety, and chronic pain. The patient presents here from home via EMS for further evaluation of left foot swelling and pain. She reports pain and swelling started a
[2024-02-08 11:42] LABS: Glucose Point of Care 249 mg/dl (65-105)
[2024-02-08] MEDS: INSULIN ASPART (*BKC) 100 UNITS/ML SUB-Q ×2 (12:04→17:30)
[2024-02-08 14:00] VITALS: BP 130/82; PULSE 100; RESP 16; TEMP 36.9; O2SAT 95
[2024-02-08 16:46] LABS: Glucose Point of Care 263 mg/dl (65-105)
[2024-02-08] MEDS: AMITRIPTYLINE HCL 25 MG TABLET 50 MG PO (21:03)
[2024-02-08] MEDS: ATORVASTATIN 40 MG TABLET 80 MG PO (21:03)
[2024-02-08 21:52] VITALS: BP 138/74; PULSE 92; RESP 18; TEMP 36.4; O2SAT 97
[2024-02-09] VITALS (12 sets, daily range): BP systolic 147–176; BP diastolic 72–103; PULSE 77–107; RESP 10–20; TEMP 36.1–37.2; O2SAT 95–100; BMI 19.5
[2024-02-09] MEDS: oxyCODONE/ACETAMINOPHEN (*CRX) 10-325 MG TABLET 1 TAB PO ×5 (02:18→22:47)
[2024-02-09 02:38] LABS: Estimated CRCL calculation 62 ml/min; Estimated Glomerular Filt Rate > 60
[2024-02-09 03:06] LABS: Vancomycin Trough 6.2 ug/mL (10.0-20.0)
[2024-02-09] MEDS: VANCOMYCIN 2,000 MG/NS 500 ML 2,000 MG/500 ML BAG 250 MG IVPB ×2 (03:23→20:20)
[2024-02-09] MEDS: metroNIDAZOLE 500 MG/ISO 100ML 500 MG/100 ML BAG 100 MG IVPB ×3 (05:28→23:00)
[2024-02-09 06:03] LABS: Glucose Point of Care 204 mg/dl (65-105)
--- NOTE | 2024-02-09 08:09 | PCWOUND ---
WOCN NOTE Received consult from diabetic foot ulcer from hospitalist. Patient is currently being followed by orthopedics for same issue. Wound Care will not see patient at this time. Call was placed to Dr. Duke's office to inform of wound care consult. Will await further instructions from ortho.
--- NOTE | 2024-02-09 08:27 | PM.IMPN ---
Progress Note: A&P Assessment and Plan (1) Sepsis: Qualifiers: Sepsis acute organ dysfunction status: without acute organ dysfunction Sepsis type: sepsis due to unspecified organism Qualified Code(s): A41.9 - Sepsis, unspecified organism Code(s): A41.9 - Sepsis, unspecified organism Status: Acute Assessment and Plan: - meets SIRS criteria: HR, RR, WBC. - lactic acid: 2.1 -> 1.1 - lactic elevated, procalcitonin added 0.1 - 30 mL/kg = 1380, 1L bolus added - suspected source: Left diabetic foot wound - started on cefepime, metronidazole, vancomycin - blood cultures drawn on 02/06 (2) Type 2 diabetes mellitus with left diabetic foot ulcer: Code(s): E11.621 - Type 2 diabetes mellitus with foot ulcer; L97.529 - Non-pressure chronic ulcer of other part of left foot with unspecified severity Status: Acute Assessment and Plan: -poorly controlled - Foot XR: Polyarticular osteoarthritis, 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 No acute osseous abnormality. - US of LLE: no DVT. - CT Foot: Very prominent edema of the left foot; cannot exclude approximately 12.6 x 28 mm irregular encapsulated multilocular abscess formation at the posterior inferior aspect of the calcaneus No CT evidence of osteomyelitis is evident. Three-phase radionuclide bone scan would be more sensitive for detection of osteomyelitis. - Ortho consulted, Leilani GAMING. Awaiting formal recs. - started on cefepime, Flagyl, vancomycin. - wound consulted - wound culture if obtainable - A1C 8.2 - trend labs (3) DM2 (diabetes mellitus, type 2): Qualifiers: Diabetes mellitus complication detail: with foot ulcer Diabetes mellitus complication status: with skin complications Diabetes mellitus oil heaterman insulin use: without alf use Qualified Code(s): E11.621 - Type 2 diabetes mellitus with foot ulcer; L97.509 - Non-pressure chronic ulcer of other part of unspecified foot with unspecified severity Code(s): E11.9 - Type 2 diabetes mellitus without complications Status: Acute Assessment and Plan: - hypoglycemia protocol - POC blood glucose ACHS - home medication: Hold metformin - correct regimen ordered - low dose TIDWM - A1C 7.2% in 2020, update - natural resources extension educator consulted (4) Hypertension: Qualifiers: Hypertension type: essential hypertension Qualified Code(s): I10 - Essential (primary) hypertension Code(s): I10 - Essential (primary) hypertension Status: Chronic Assessment and Plan: - chronic, currently 141/75 - no current home medications - monitor (5) Abscess of foot: Code(s): L02.619 - Cutaneous abscess of unspecified foot Status: Acute Assessment and Plan: - ortho consulted - notes reviewed: Conservative treatment ice, compression and elevation. Continue IV antibiotics. We will continue to monitor. May require surgical drainage. Plan Patient here with diabetic foot wound to to the left foot. Patient met SIRS criteria. Lactic elevated. IV fluids initiated. Started on cefepime, Flagyl, vancomycin. CT concerning for 12.6 x 28 mm irregular encapsulated multilocular abscess formation at the posterior inferior aspect of the calcaneus. Orthopedics consulted, awaiting recs. Wound consulted. Wound culture if obtainable. Continue tight glycemic control. Diet: Diabetic GI Prophylaxis: Not currently indicated DVT Prophylaxis: SCDs Lines: Peripheral Code Status: Full code Time Spent With Patient Time with patient: Greater than 35 minutes Subjective Date/time seen: 02/09/24 08:27 Interval history: Narrative: 74 y/o F presents here with left foot swelling with PMH of diabetes, hyperlipidemia, hypertension, depression, anxiety, and chronic pain. The patient presents here from home via EMS for further evaluation of left foot swelling and pain. She reports pain and swelling started a
[2024-02-09 08:33] LABS: Glucose Point of Care 223 mg/dl (65-105)
[2024-02-09 09:06] LABS: Hematocrit 36.8 % (37.0-47.0); Hemoglobin 11.4 g/dL (12.0-15.0); Mean Corpuscular Hemoglobin 28.4 pg (26-34); Mean Corpuscular Volume 91.8 fl (80-100); Mean Platelet Volume 10.6 fl (7.4-10.4); Platelet Count Result 507 k/mm3 (150-375); Red Blood Count 4.01 M/mm3 (4.2-5.4); Red Cell Distribution Width 18.6 % (11.5-14.5)
[2024-02-09 09:14] LABS: Anion Gap 9 mmol/L (4-12); Blood Urea Nitrogen 11 mg/dL (7-17); Calcium 9.3 mg/dL (8.4-10.2); Carbon Dioxide 26 mmol/L (22-30); Chloride 100 mmol/L (98-107); Estimated CRCL calculation 65 ml/min; Estimated Glomerular Filt Rate > 60; Glucose 224 mg/dL (65-110); Sodium 135 mmol/L (137-145)
[2024-02-09] MEDS: CEFEPIME 2 GM/NS 50 ML 2 GM/50 ML BAG IVPB ×2 (10:57→20:20)
[2024-02-09 11:50] LABS: Glucose Point of Care 175 mg/dl (65-105)
--- NOTE | 2024-02-09 14:01 | PM.PNORT ---
Progress Note: A&P Assessment and Plan (1) Abscess of foot: Code(s): L02.619 - Cutaneous abscess of unspecified foot Status: Acute Assessment and Plan: 74-year-old woman with diabetes and peripheral neuropathy. Left foot abscess after stepping on broken porcelain 10 days ago. Worsening swelling, erythema, pain. Indicated for surgical treatment. Discussed nonoperative and operative treatment options with the patient. Risks and benefits of each as well as alternatives were reviewed. All of the patient's questions were answered. The risks of surgery reviewed including but not limited to: Neurovascular damage, wound complication, infection, blood clot, pulmonary embolus, stroke, myocardial infarction, and anesthetic risks up to and including . Continued pain and possible dysfunction were explained. Specific risks of the procedure including later recurrence of deformity. No guarantees were offered. If complications occur, the patient understands the need for further treatment, possible further surgery. Patient verbalizes understanding and wishes to proceed. PLAN: Debridement left foot ulcer (2) Type 2 diabetes mellitus with left diabetic foot ulcer: Code(s): E11.621 - Type 2 diabetes mellitus with foot ulcer; L97.529 - Non-pressure chronic ulcer of other part of left foot with unspecified severity Status: Acute Subjective Subjective Date/Time Seen: 02/09/24 14:01 Principal diagnosis: left foot abscess Interval history: patient reports increased pain left heel. She now describes an injury 10 days ago where a plate broke at home. She thinks she stepped on 1 of the pieces with the left heel. Review of Systems Constitutional: Constitutional: Denies fever(s) Eyes: Eyes: Denies blurry vision ENT: Reports Normal hearing present Cardiovascular: Cardiovascular: Denies chest pain and Denies dyspnea Respiratory: Respiratory: Denies dyspnea and Denies wheezing Gastrointestinal: Gastrointestinal: Denies abdominal pain Genitourinary: Genitourinary: Denies urinary urgency Musculoskeletal: Musculoskeletal: Reports as per HPI and Denies numbness Integumentary/Breasts: Skin/Breast: Denies changing lesions and Denies sores Neurologic: Reports Normal hearing present, Denies behavioral changes, Denies confusion, Denies numbness and Denies convulsions Psychiatric: Psychiatric: Denies behavioral changes, Denies confusion and Denies hallucinations Endocrine: Endocrine: Denies heat intolerance Hematologic/Lymphatic: Hematologic/Lymphatic: Denies easy bleeding Allergic/Immunologic: Allergic/Immunologic: Denies wheezing Exam Const: General: healthy appearing; No in distress or confusion Orientation/consciousness: oriented to person, oriented to place, oriented to time and No confusion HENMT: Head: normal to inspection, normocephalic and atraumatic Eyes: Conjunctivae: conjunctivae normal Sclera: sclerae normal Neck: Neck: supple and nontender Resp: Effort & Inspection: normal respiratory effort and no audible wheezes Cardio: Rhythm: regular rhythm Neuro: General: oriented to person, oriented to place, oriented to time and No confusion Extrem: Right upper extremity: normal to inspection Left upper extremity: normal to inspection Right lower extremity: ankle Details: normal to inspection, abnormal ROM Details: with range as follows (ankle dorsiflexion -10 degrees, plantar flexion 40?, inversion 15?, eversion 15?) and other ( good stability all directions); no tenderness, no swelling and no ecchymosis and foot Details: normal to inspection, toes with normal ROM, vascular exam Details: dorsalis pedis pulse present and normal capillary refill, tendon exam Details: active flexion abnormal and active extension abnormal, motor-sensory exam Details: two point discrimination abnormal Location: in all toes and light-touch abnormal Location: in all toes and other (Hallux metatarsophalangeal motion 2
--- NOTE | 2024-02-09 14:02 | WPDANESEPPF ---
Anes - Initial Pre Proc Eval Procedure: Operation Date: 02/09/24 15:00 Proposed Procedures p Incision and Drainage Left Diabetic Foot Ulcer - Vik Duke MD Date/Time: 02/09/24 14:02 Surgeon: Mary Busch MD Pre Op Diagnosis: Diabetic Foot Ulcer Patient Data Age: 74 Gender: F Height: 1.57 m Weight: 48.5 kg Last Vital Signs Temp 37.2 C 02/09/24 06:00 Pulse 77 02/09/24 06:00 Resp 18 02/09/24 06:00 BP 147/76 H 02/09/24 06:00 Pulse Ox 96 02/09/24 06:00 O2 Del Method Room Air 02/09/24 09:55 FiO2 21 02/08/24 07:27 Allergies Allergy/AdvReac Type Severity Reaction Status Date / Time influenza virus vaccine, Allergy Severe Hives / Verified 05/23/23 11:30 specific Red Face NSAIDS (Non-Steroidal AdvReac Mild Unknown Verified 05/23/23 11:30 Anti-Inflamma INFLAMMATORY DRUGS AdvReac Unknown TONGUE Uncoded 05/23/23 11:30 SWELLS Home Medications Medication Instructions Recorded Confirmed Type atorvastatin 80 mg tablet 80 mg PO HS 11/16/19 02/07/24 History metformin 1,000 mg tablet 1,000 mg PO BID 11/16/19 02/07/24 History oxycodone-acetaminophen 10 mg-325 1 tablet PO Q4H PRN Pain (Scale 11/16/19 02/07/24 History mg tablet Score 7-10) tramadol 50 mg tablet 50 mg PO PRN PRN Pain (Scale Score 11/16/19 02/07/24 History 4-6) esomeprazole magnesium 40 mg 40 mg PO Q12H #60 caps 04/29/23 02/07/24 Rx capsule,delayed release (Nexium) amitriptyline 50 mg tablet 50 mg PO DAILY 02/07/24 02/07/24 History Laboratory Tests 02/08/24 02/08/24 02/09/24 16:44 20:34 02:20 WBC 18.0 H K/mm3 (4.5-10.0) RBC 4.01 L M/mm3 (4.2-5.4) Hgb 11.4 L g/dL (12.0-15.0) Hct 36.8 L % (37.0-47.0) MCV 91.8 fl (80-100) MCH 28.4 pg (26-34) MCHC 31.0 L g/dl (32-36) RDW 18.6 H % (11.5-14.5) Plt Count 507 H k/mm3 (150-375) MPV 10.6 H fl (7.4-10.4) Sodium 135 L mmol/L (137-145) Potassium 4.0 mmol/L (3.4-5.0) Chloride 100 mmol/L (98-107) Carbon Dioxide 26 mmol/L (22-30) Anion Gap 9 mmol/L (4-12) BUN 11 mg/dL (7-17) Creatinine 0.50 L mg/dL (0.7-1.0) Estim Creat Clear Calc Estimated GFR Glucose POC Capillary Glucose 263 H mg/dl 204 H mg/dl (65-105) (65-105) Calcium Vancomycin Trough 02/09/24 02/09/24 02/09/24 02:20 02:20 02:20 WBC RBC Hgb Hct MCV MCH MCHC RDW Plt Count MPV Sodium Potassium Chloride Carbon Dioxide Anion Gap BUN Creatinine 0.50 L mg/dL (0.7-1.0) Estim Creat Clear Calc 62 ml/min 65 ml/min Estimated GFR > 60 > 60 (59 - ) (59 - ) Glucose 224 H mg/dL (65-110) POC Capillary Glucose Calcium 9.3 mg/dL (8.4-10.2) Vancomycin Trough 6.2 L ug/mL (10.0-20.0) 02/09/24 02/09/24 08:30 11:44 WBC RBC Hgb Hct MCV MCH MCHC RDW Plt Count MPV Sodium Potassium Chloride Carbon Dioxide Anion Gap BUN Creatinine Estim Creat Clear Calc Estimated GFR Glucose POC Capillary Glucose 223 H mg/dl 175 H mg/dl (65-105) (65-105) Calcium Vancomycin Trough Patient hx anesthesia problems: none Family hx anesthesia problems: none Results Review: All pre-operative results and documents have been reviewed as part of the pre-operative evaluation. [facility] Past Medical History Medical History (Updated 02/09/24 @ 14:03 by Foster Coyne
--- NOTE | 2024-02-09 14:05 | WPDHPUPDATE1 ---
History and Physical Update Update Date/Time: 02/09/24 14:05 History and Physical has been reviewed, including an updated exam of the patient. There are NO changes in the patient's condition. Risks, benefits, and alternatives have been discussed and questions answered. Patient agrees to proceed with procedure.
--- NOTE | 2024-02-09 14:38 | PC.NURSE ---
Patient off of unit to surgery
[2024-02-09] MEDS: LACTATED RINGERS 1,000 ML 30 ML IV CONT (15:01)
[2024-02-09 15:20] LABS: Glucose Point of Care 135 mg/dl (65-105)
[2024-02-09] MEDS: BUPivacaine HCL 0.5% 10 ML AMP 20 ML INFILTRATE (15:22)
[2024-02-09] MEDS: ceFAZolin SODIUM 1 GM VIAL (15:22)
[2024-02-09] MEDS: fentaNYL CITRATE INJ (*CRX) 100 MCG/2 ML VIAL 25 MCG IV PUSH ×4 (16:00→16:12)
--- NOTE | 2024-02-09 16:06 | W.PM.PROC2 ---
Procedure Note - Detailed Date of Procedure 02/09/24 Pre-op Diagnosis Diabetic Foot Ulcer, Abscess calcaneal bursal left foot Post-op Diagnosis Same ( left foot calcaneal bursal abscess) Procedure Performed excisional debridement of calcaneal bursa left foot below fascia Surgeon Vik Duke MD Directional Survey Drafter 1st clerical administrative assistant Anesthesia General Indications 74-year-old woman with diabetes and peripheral neuropathy who stepped on a broken piece of glass 10 days ago. Developed abscess plantar aspect of the left calcaneus. Unrelieved with antibiotics. Presents for operative treatment. Findings Abscess plantar calcaneus below fascia, does not appear to involve bone. 4 cm tracking distal and medial. Description of Procedure Patient identified in the preoperative holding. Informed consent given. Operative extremity marked. Patient received intravenous antibiotics. Patient brought to the operating room where underwent general anesthetic by anesthesia team. Positioned supine on operating room table. Time-out performed confirming the patient, site of the surgery and the plan. Left foot prepped draped usual sterile surgical fashion using a ChloraPrep skin solution. Foot was exsanguinated with an Esmarch which was secured at the ankle as a tourniquet. 1.5 cm eschar on the plantar aspect of the heel was identified. CT scan showed a possible foreign body in the middle of the eschar which was not able to be visualized or found. 15 blade knife used to make an incision in longitudinal fashion along the plantar aspect of the heel ellipsing the eschar. Purulence drainage noted. Dissection carried down to the fascia which was incised in line with the skin incision. plantar bursa from the calcaneus was then exposed and noted to have purulent material and drainage. This was cultured and passed off. Bursa then excised with 15 blade knife and rongeur and passed off. Wound then thoroughly irrigated with antibiotic saline. There was some loculated areas which were opened up and debrided and irrigated. The furthest communication was distal and medial approximately 4 cm. This was well irrigated and suctioned out. 2 0 Prolene Interrupted suture then used to approximate the incision. 1/2 inch iodoform gauze was packed into the central portion. Sterile dressing applied. Esmarch tourniquet removed. The patient was then woken from anesthesia, extubated and taken to the recovery room in stable condition. All sponge, needle, instrument counts were correct at the end of the case. Estimated Blood Loss 5 Tourniquet Time Total Tourniquet Time: 25 Urine Output 200 Drains No Packing Yes ( Iodoform gauze) Pathology Yes ( Gram stain and cultures) Complications None Condition Stable Disposition PACU [facility] Billing Surgery - Charge Forward: Surgery Billing ([id number])
[2024-02-09 16:11] LABS: Glucose Point of Care 155 mg/dl (65-105)
[2024-02-09 17:15] LABS: Glucose Point of Care 164 mg/dl (65-105)
[2024-02-09] MEDS: PANTOPRAZOLE 40 MG TABLET PO (20:25)
[2024-02-09] MEDS: AMITRIPTYLINE HCL 25 MG TABLET 50 MG PO (20:25)
[2024-02-09] MEDS: ATORVASTATIN 40 MG TABLET 80 MG PO (20:25)
[2024-02-09] MEDS: KETOROLAC 15 MG/ML VIAL (*BKC) IV PUSH (22:04)
[2024-02-10 02:25] VITALS: BP 132/85; PULSE 89; RESP 18; TEMP 36.5; O2SAT 96
[2024-02-10] MEDS: oxyCODONE/ACETAMINOPHEN (*CRX) 10-325 MG TABLET 1 TAB PO ×5 (02:50→20:57)
[2024-02-10] MEDS: metroNIDAZOLE 500 MG/ISO 100ML 500 MG/100 ML BAG 100 MG IVPB (05:44)
[2024-02-10 06:08] LABS: Glucose Point of Care 311 mg/dl (65-105)
[2024-02-10 06:25] VITALS: BP 145/75; PULSE 73; RESP 18; TEMP 36.2; O2SAT 97
[2024-02-10 07:28] LABS: Hematocrit 33.1 % (37.0-47.0); Hemoglobin 10.7 g/dL (12.0-15.0); Mean Corpuscular HGB Conc 32.3 g/dl (32-36); Mean Corpuscular Hemoglobin 28.6 pg (26-34); Mean Corpuscular Volume 88.5 fl (80-100); Mean Platelet Volume 9.9 fl (7.4-10.4); Platelet Count Result 490 k/mm3 (150-375); Red Blood Count 3.74 M/mm3 (4.2-5.4); Red Cell Distribution Width 18.2 % (11.5-14.5); White Blood Count 21.7 K/mm3 (4.5-10.0)
[2024-02-10 07:44] LABS: Anion Gap 6 mmol/L (4-12); Blood Urea Nitrogen 9 mg/dL (7-17); Calcium 8.6 mg/dL (8.4-10.2); Carbon Dioxide 28 mmol/L (22-30); Chloride 97 mmol/L (98-107); Estimated CRCL calculation 79 ml/min; Estimated Glomerular Filt Rate > 60; Glucose 231 mg/dL (65-110); Potassium 3.6 mmol/L (3.4-5.0); Sodium 131 mmol/L (137-145)
[2024-02-10 08:22] LABS: Glucose Point of Care 183 mg/dl (65-105)
[2024-02-10] MEDS: CEFEPIME 2 GM/NS 50 ML 2 GM/50 ML BAG IVPB (08:34)
[2024-02-10] MEDS: PANTOPRAZOLE 40 MG TABLET PO ×2 (08:34→20:58)
--- NOTE | 2024-02-10 08:39 | PM.PNORT ---
Progress Note: A&P Assessment and Plan (1) Abscess of foot: Code(s): L02.619 - Cutaneous abscess of unspecified foot Status: Acute Plan Left foot deep abscess. Postop day 1 status post debridement. G stain showing Gram-positive cocci. Cultures pending. Plan dressing change today with wound packing. Fracture boot for protected weight-bearing. Will need antibiotic coverage long-term and wound care. Subjective Subjective Date/Time Seen: 02/10/24 08:39 Post Op day: 1 Principal diagnosis: Left foot abscess Interval history: Awake and alert this AM. Pain lft heel as well as headache. Exam Const: General: healthy appearing; No in distress or confusion Orientation/consciousness: oriented to person, oriented to place, oriented to time and No confusion HENMT: Head: normal to inspection, normocephalic and atraumatic Resp: Effort & Inspection: normal respiratory effort and no audible wheezes Cardio: Rhythm: regular rhythm Neuro: General: oriented to person, oriented to place, oriented to time and No confusion Extrem: Right upper extremity: normal to inspection Left upper extremity: normal to inspection Right lower extremity: ankle Details: normal to inspection, abnormal ROM Details: with range as follows (ankle dorsiflexion -10 degrees, plantar flexion 40?, inversion 15?, eversion 15?) and other ( good stability all directions); no tenderness, no swelling and no ecchymosis and foot Details: normal to inspection, toes with normal ROM, vascular exam Details: dorsalis pedis pulse present and normal capillary refill, tendon exam Details: active flexion abnormal and active extension abnormal, motor-sensory exam Details: two point discrimination abnormal Location: in all toes and light-touch abnormal Location: in all toes and other (Hallux metatarsophalangeal motion 20? dorsiflexion/10? plantar flexion) Left lower extremity: ankle Details: normal to inspection and abnormal ROM Details: with range as follows (ankle dorsiflexion -10 degrees, plantar flexion 40?, inversion 15?, eversion 15?); no tenderness and no swelling and foot Details: normal capillary refill, tenderness Location: of the calcaneus (Plantar heel) Details: point tenderness and with squeeze, abnormal ROM of toe, vascular exam (2+DP pulse, good cap refill all toes), tendon exam active flexion abnormal of the great toe and active extension abnormal of the great toe, motor-sensory exam two point discrimination abnormal and light-touch abnormal in all toes and other; no crepitus Other: Dressing in place left foot. Clean and dry Psych: Affect: normal affect Objective Data Vital Signs Vital Signs: Vital Signs - 24 hr 02/09/24 09:55 02/09/24 14:58 02/09/24 15:55 Temperature 97.2 F L 97.9 F Pulse Rate 84 107 H Respiratory Rate 16 20 Blood Pressure 147/88 H 159/103 H Pulse Oximetry 99 100 Oxygen Delivery Room Air Simple Face Mask Oxygen Flow Rate 8 Fraction of Inspired Oxygen 02/09/24 16:10 02/09/24 16:30 02/09/24 16:40 Temperature Pulse Rate 87 85 82 Respiratory Rate 10 L 17 15 Blood Pressure 168/92 H 169/92 H 160/92 H Pulse Oximetry 100 95 97 Oxygen Delivery Room Air Room Air Room Air Oxygen Flow Rate Fraction of Inspired Oxygen 02/09/24 16:55 02/09/24 17:05 02/09/24 17:25 Temperature 96.9 F L 96.9 F L Pulse Rate 79 78 Respiratory Rate 18 18 Blood Pressure 171/80 H 151/87 H Pulse Oximetry 96 96 96 Oxygen Delivery Room Air Oxygen Flow Rate Fraction of Inspired Oxygen 21 02/09/24 17:45 02/09/24 18:25 02/09/24 20:00 Temperature 97.3 F L 97.6 F Pulse Rate 103 H 102 H Respiratory Rate 18 18 Blood Pressure 176/86 H 152/72 H Pulse Oximetry 100 97 Oxygen Delivery Room Air Oxygen Flow Rate Fraction of Inspired Oxygen 02/09/24 22:36 02/10/24 02:25 02/10/24 06:25 Temperature 98.1 F 97.7 F 97.2 F L Pulse Rate 97 89 73 Respiratory Rate 20 18 18 Blood Pressure 164/76 H 132/85 145/75 H P
[2024-02-10] MEDS: ACETAMINOPHEN/ASPIRIN/CAFFEINE 250-250-65 MG TABLET 1 TABLET PO (09:11)
--- NOTE | 2024-02-10 10:26 | PM.IMPN ---
Progress Note: A&P Assessment and Plan (1) Sepsis: Qualifiers: Sepsis acute organ dysfunction status: without acute organ dysfunction Sepsis type: sepsis due to unspecified organism Qualified Code(s): A41.9 - Sepsis, unspecified organism Code(s): A41.9 - Sepsis, unspecified organism Status: Acute Assessment and Plan: - meets SIRS criteria: HR, RR, WBC. - lactic acid: 2.1 -> 1.1 - lactic elevated, procalcitonin added 0.1 - 30 mL/kg = 1380, 1L bolus added - suspected source: Left diabetic foot wound - started on cefepime, metronidazole, vancomycin - blood cultures drawn on 02/06- no growth - follow wound cultures -de escalated to Ceftriaxone and vanc on 02/09 (2) Type 2 diabetes mellitus with left diabetic foot ulcer: Code(s): E11.621 - Type 2 diabetes mellitus with foot ulcer; L97.529 - Non-pressure chronic ulcer of other part of left foot with unspecified severity Status: Acute Assessment and Plan: -poorly controlled - Foot XR: Polyarticular osteoarthritis, 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 No acute osseous abnormality. - US of LLE: no DVT. - CT Foot: Very prominent edema of the left foot; cannot exclude approximately 12.6 x 28 mm irregular encapsulated multilocular abscess formation at the posterior inferior aspect of the calcaneus No CT evidence of osteomyelitis is evident. Three-phase radionuclide bone scan would be more sensitive for detection of osteomyelitis. - Ortho consulted, Leilani GAMING. Awaiting formal recs. - started on cefepime, Flagyl, vancomycin. - wound consulted - wound culture if obtainable - A1C 8.2 - trend labs (3) DM2 (diabetes mellitus, type 2): Qualifiers: Diabetes mellitus complication detail: with foot ulcer Diabetes mellitus complication status: with skin complications Diabetes mellitus termite exterminator insulin use: without penitentiary use Qualified Code(s): E11.621 - Type 2 diabetes mellitus with foot ulcer; L97.509 - Non-pressure chronic ulcer of other part of unspecified foot with unspecified severity Code(s): E11.9 - Type 2 diabetes mellitus without complications Status: Acute Assessment and Plan: - hypoglycemia protocol - POC blood glucose ACHS - home medication: Hold metformin - correct regimen ordered - low dose TIDWM - A1C 7.2% in 2020, update - drum straightener consulted (4) Hypertension: Qualifiers: Hypertension type: essential hypertension Qualified Code(s): I10 - Essential (primary) hypertension Code(s): I10 - Essential (primary) hypertension Status: Chronic Assessment and Plan: - chronic, currently 141/75 - no current home medications - monitor (5) Abscess of foot: Code(s): L02.619 - Cutaneous abscess of unspecified foot Status: Acute Assessment and Plan: - ortho consulted - notes reviewed: Conservative treatment ice, compression and elevation. Continue IV antibiotics. We will continue to monitor. May require surgical drainage. 02/09 Left foot deep abscess. Postop day 1 status post debridement. G stain showing Gram-positive cocci. Cultures pending. Plan dressing change today with wound packing. Fracture boot for protected weight-bearing. Will need antibiotic coverage long-term and wound care. Plan Patient here with diabetic foot wound to to the left foot. Patient met SIRS criteria. Lactic elevated. IV fluids initiated. Started on cefepime, Flagyl, vancomycin. CT concerning for 12.6 x 28 mm irregular encapsulated multilocular abscess formation at the posterior inferior aspect of the calcaneus. Orthopedics consulted, awaiting recs. Wound consulted. Wound culture if obtainable. Continue tight glycemic control. Diet: Diabetic GI Prophylaxis: Not currently indicated DVT Prophylaxis: SCDs Lines: Peripheral Code Status: Full code Time Spent With Patient Time with patient: Greater than 35 min
[2024-02-10] MEDS: INSULIN ASPART (*BKC) 100 UNITS/ML SUB-Q ×3 (12:17→22:09)
[2024-02-10 12:20] LABS: Glucose Point of Care 276 mg/dl (65-105)
[2024-02-10 14:02] VITALS: BP 123/71; PULSE 82; RESP 16; TEMP 36.3; O2SAT 99
[2024-02-10 14:54] LABS: Vancomycin Trough 11.5 ug/mL (10.0-20.0)
[2024-02-10] MEDS: VANCOMYCIN 2,000 MG/NS 500 ML 2,000 MG/500 ML BAG 250 MG IVPB (16:57)
[2024-02-10 17:17] LABS: Glucose Point of Care 245 mg/dl (65-105)
[2024-02-10 18:25] VITALS: BP 142/81; PULSE 91; RESP 18; TEMP 36.9; O2SAT 94
[2024-02-10] MEDS: cefTRIAXone 2 GM/NS 100 ML 2 GM/100 ML BAG IVPB (20:33)
[2024-02-10] MEDS: AMITRIPTYLINE HCL 25 MG TABLET 50 MG PO (20:58)
[2024-02-10] MEDS: ATORVASTATIN 40 MG TABLET 80 MG PO (20:58)
[2024-02-10 22:18] VITALS: BP 136/72; PULSE 68; RESP 20; TEMP 36.3; O2SAT 99
[2024-02-11] MEDS: oxyCODONE/ACETAMINOPHEN (*CRX) 10-325 MG TABLET 1 TAB PO ×3 (01:34→11:48)
[2024-02-11 02:50] VITALS: BP 142/45; PULSE 74; RESP 18; TEMP 36.7; O2SAT 96
[2024-02-11 05:40] LABS: Hematocrit 29.6 % (37.0-47.0); Hemoglobin 9.6 g/dL (12.0-15.0); Mean Corpuscular HGB Conc 32.4 g/dl (32-36); Mean Corpuscular Hemoglobin 29.1 pg (26-34); Mean Corpuscular Volume 89.7 fl (80-100); Mean Platelet Volume 10.1 fl (7.4-10.4); Platelet Count Result 477 k/mm3 (150-375); Red Cell Distribution Width 18.4 % (11.5-14.5); White Blood Count 16.5 K/mm3 (4.5-10.0)
[2024-02-11 05:52] LABS: Anion Gap 6 mmol/L (4-12); Blood Urea Nitrogen 12 mg/dL (7-17); Calcium 8.3 mg/dL (8.4-10.2); Carbon Dioxide 25 mmol/L (22-30); Chloride 102 mmol/L (98-107); Estimated CRCL calculation 79 ml/min; Estimated Glomerular Filt Rate > 60; Glucose 214 mg/dL (65-110); Potassium 3.8 mmol/L (3.4-5.0); Sodium 133 mmol/L (137-145)
[2024-02-11 05:58] LABS: Glucose Point of Care 248 mg/dl (65-105)
[2024-02-11 06:00] VITALS: BP 149/76; PULSE 76; RESP 20; TEMP 36.1; O2SAT 100
[2024-02-11] MEDS: ACETAMINOPHEN/ASPIRIN/CAFFEINE 250-250-65 MG TABLET 1 TABLET PO (08:18)
[2024-02-11] MEDS: PANTOPRAZOLE 40 MG TABLET PO (08:19)
[2024-02-11 08:20] LABS: Glucose Point of Care 192 mg/dl (65-105)
[2024-02-11] MEDS: DOXYCYCLINE HYCLATE 100 MG TABLET PO (11:07)
--- NOTE | 2024-02-11 11:13 | PM.DS ---
DS: Admitting Diagnosis Discharge Date 02/11/2024 Admitting Diagnosis Foot swelling DS: Discharge Diagnosis Discharge Diagnosis (1) Sepsis: Qualifiers: Sepsis acute organ dysfunction status: without acute organ dysfunction Sepsis type: sepsis due to unspecified organism Qualified Code(s): A41.9 - Sepsis, unspecified organism Code(s): A41.9 - Sepsis, unspecified organism Status: Acute Assessment and Plan: - pt treated for sepsis with fluids - 30 mL/kg = 1380, 1L bolus added - suspected source: Left diabetic foot wound - started on cefepime, metronidazole, vancomycin - blood cultures drawn on 02/06- no growth - Foot XR: Polyarticular osteoarthritis, 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 No acute osseous abnormality. - US of LLE: no DVT. - CT Foot: Very prominent edema of the left foot; cannot exclude approximately 12.6 x 28 mm irregular encapsulated multilocular abscess formation at the posterior inferior aspect of the calcaneus No CT evidence of osteomyelitis is evident. Three-phase radionuclide bone scan would be more sensitive for detection of osteomyelitis. - Ortho consulted, Leilani GAMING. Awaiting formal recs. - started on cefepime, Flagyl, vancomycin. - wound consulted - wound culture if obtainable - follow wound cultures -de escalated to Ceftriaxone and vanc on 02/09 - Pt does not have OM ok to swtich to oral abx and dc today with HH follow up (2) Type 2 diabetes mellitus with left diabetic foot ulcer: Code(s): E11.621 - Type 2 diabetes mellitus with foot ulcer; L97.529 - Non-pressure chronic ulcer of other part of left foot with unspecified severity Status: Acute Assessment and Plan: -poorly controlled - A1C 8.2 - ok to dc with PCP follow up (3) DM2 (diabetes mellitus, type 2): Qualifiers: Diabetes mellitus complication detail: with foot ulcer Diabetes mellitus complication status: with skin complications Diabetes mellitus buttermaker helper insulin use: without buttermaker helper use Qualified Code(s): E11.621 - Type 2 diabetes mellitus with foot ulcer; L97.509 - Non-pressure chronic ulcer of other part of unspecified foot with unspecified severity Code(s): E11.9 - Type 2 diabetes mellitus without complications Status: Acute Assessment and Plan: - home medication: Hold metformin - correct regimen ordered - low dose TIDWM - A1C 7.2% in 2020, update - store shopper consulted (4) Hypertension: Qualifiers: Hypertension type: essential hypertension Qualified Code(s): I10 - Essential (primary) hypertension Code(s): I10 - Essential (primary) hypertension Status: Chronic Assessment and Plan: - chronic, currently 141/75 (5) Abscess of foot: Code(s): L02.619 - Cutaneous abscess of unspecified foot Status: Acute Assessment and Plan: - ortho consulted - notes reviewed: Conservative treatment ice, compression and elevation. Continue IV antibiotics. We will continue to monitor. May require surgical drainage. DS: Summary Hospital Course Hospital Course: patient presents here from home via EMS for further evaluation of left foot swelling and pain. She reports pain and swelling started approximately 4 days ago. Day after the swelling started patient noticed that her ankle and foot became reddened and tightness increased. Patient reports a family member noticed that she had a black spot to her left heel yesterday. Patient does not check her feet and was unaware there was a wound. No known precipitating trauma or wound prior to changes to left foot that she is aware of. Denies fever, chills, or body aches. Denies hx of peripheral neuropathy. Reports compliance to her diabetes medications. Initial VS at presentation: 97.8? F, HR 104, RR 20, 141/75, and 94% on RA. ED workup showed: WBC 18.6, hemoglobin 10.0, creatinine 0.4 and number GFR, glucose 141, lactic 2.1
[2024-02-11 12:15] LABS: Glucose Point of Care 295 mg/dl (65-105)
[2024-02-11] MEDS: INSULIN ASPART (*BKC) 100 UNITS/ML SUB-Q (12:24)
== END 2024-02-11 13:45 | disposition home health service (06) | DRG 854 ==
LOC: ANHED 11:43 → ANH3MED 16:02
PROVIDERS: Nurse Practitioner; Orthopaedic Surgery; Student in an Organized Health Care Education/Training Program; Admitting Provider General Practice; Emergency Provider Emergency Medicine; PCP Nurse Practitioner Family; Visit Provider Family Medicine
PROC: 0MBT0ZZ Excision of Left Foot Bursa and Ligament, Open Approach (ICD-10-PCS; principal; 2024-02-09 15:00)
DX: A41.9 Sepsis, unspecified organism (principal); L02.612 Cutaneous abscess of left foot; L97.429 Non-pressure chronic ulcer of left heel and midfoot with unspecified severity; B95.62 Methicillin resistant Staphylococcus aureus infection as the cause of diseases classified elsewhere; E11.621 Type 2 diabetes mellitus with foot ulcer; E11.42 Type 2 diabetes mellitus with diabetic polyneuropathy; E78.5 Hyperlipidemia, unspecified; I10 Essential (primary) hypertension; G89.29 Other chronic pain; F32.A Depression, unspecified; F41.9 Anxiety disorder, unspecified; Z96.651 Presence of right artificial knee joint; Z96.612 Presence of left artificial shoulder joint
CPT/HCPCS: 36415; 73630; 73701; 80048; 80053; 80202; 82565; 82948; 83036; 83605; 84145; 85025; 85027; 86140; 87040; 87070; 87075; 87081; 87181; 87205; 93971; 96365; 96367; 96375; 99285; A9270; J0690; J0692; J0696; J1815; J1836; J1885; J2270; J2704; J3010; J3370; J7030; J7120; Q9967

== ENCOUNTER 2024-02-28 19:05 | Inpatient (IN) | payer MEDICARE, MEDICAID, SELFPAY ==
--- NOTE | ~2024-02-28 | CT_ITS ---
CT scan of the right foot Clinical history edema, erythema TECHNIQUE: Following intravenous administration of 100 cc of Omnipaque 350 contrast material, axial i maging of the right foot was performed. Sagittal and coronal reformatted images were constructed. Dos e reduction technique was used on this scan by utilizing automated exposure control and iterative rec onstruction technique. The dose-length product (DLP) was 434.75 mGy-cm. Findings: No acute fracture or dislocation seen. No bony destructive change or periosteal reaction se en to suggest osteomyelitis. Joint spaces are relatively well preserved throughout the foot. No defin ite joint effusion seen. Intrinsic musculature of the foot is grossly unremarkable. There is extensive subcutaneous soft tissu e edema and swelling, especially over the dorsum of the foot. No definite fluid collection/abscess id entified. IMPRESSION: No definite evidence for osteomyelitis. MR or three-phase bone scan would be more sensitive for early osteomyelitis. Diffuse soft tissue swelling could reflect cellulitis versus bland edema. Correlate clinically. No ab scess seen. Reviewed, dictated and finalized at location . IMPRESSION: No definite evidence for osteomyelitis. MR or three-phase bone scan would be mo re sensitive for early osteomyelitis. Diffuse soft tissue swelling could reflect cellulitis versus bland edema. Corre late clinically. No abscess seen.
--- NOTE | ~2024-02-28 | XR_ITS ---
XR foot RT min 3V DATE: 02/28/2024 21:56 INDICATION: Erythema, edema TECHNIQUE: 3 views COMPARISON: None FINDINGS: There is osteopenia. Mild plantar calcaneal enthesopathy. Mild osteoarthritis at the first metatarsophalangeal joint. No fracture, dislocation, periosteal reaction or bone destruction is detected. IMPRESSION: Osteopenia Mild plantar calcaneal enthesopathy Mild osteoarthritis of first metatarsophalangeal joint Reviewed, dictated and finalized at location A.
[2024-02-28 19:20] VITALS: BP 144/75; PULSE 103; RESP 20; TEMP 36.8; O2SAT 97
--- NOTE | 2024-02-28 21:31 | ED.LOWEXIN ---
HPI - Extremity Injury (Lower) General Chief Complaint: Extremity Injury, Lower <MARIA LUZ Owens Last Filed: 02/29/24 02:16> Stated Complaint: right foot pain swelling <MARIA LUZ Owens Last Filed: 02/29/24 02:16> Time Seen by Provider: 02/28/24 20:44 <MARIA LUZ Owens Last Filed: 02/29/24 02:16> Source: patient <MARIA LUZ Owens Last Filed: 02/29/24 02:16> Mode of arrival: ambulatory <MARIA LUZ Owens Last Filed: 02/29/24 02:16> Limitations: no limitations <MARIA LUZ Owens Last Filed: 02/29/24 02:16> History of Present Illness HPI Narrative: This is 74 year old female that presents to the ER for right foot pain and swelling. Ongoing since yesterday. Reports a similar occurrence in her left foot a couple of weeks ago for which she was found to have an abscess. Reports history of diabetes. Denies fevers. <MARIA LUZ Owens Last Filed: 02/29/24 02:16> Related Data Home Medications: Home Medications Medication Instructions Recorded Confirmed atorvastatin 80 mg tablet 80 mg PO HS 11/16/19 02/29/24 metformin 1,000 mg tablet 1,000 mg PO BID 11/16/19 02/29/24 tramadol 50 mg tablet 50 mg PO PRN PRN Pain (Scale Score 11/16/19 02/29/24 4-6) amitriptyline 50 mg tablet 50 mg PO DAILY 02/07/24 02/29/24 <MARIA LUZ Owens Last Filed: 02/29/24 02:16> Allergies/Adverse Reactions: Allergies Allergy/AdvReac Type Severity Reaction Status Date / Time influenza virus vaccine, Allergy Severe Hives / Verified 02/28/24 20:40 specific Red Face <MARIA LUZ Owens Last Filed: 02/29/24 02:16> Review of Systems Review of Systems: CONSTITUTIONAL: Denies fever MUSCULOSKELETAL: Reports joint pain, and myalgia. NEUROLOGIC: Denies numbness, or weakness. <Lindsey Carrillo PA-C - Last Filed: 02/29/24 02:16> All systems reviewed & are unremarkable except as noted in HPI and below <Lindsey Carrillo PA-C - Last Filed: 02/29/24 02:16> [facility] Past Medical History Medical History: Medical History Anxiety Chronic pain Chronic, continuous use of opioids Depression DM2 (diabetes mellitus, type 2) History of diabetes mellitus History of hyperlipidemia History of hypertension History of suicide attempt With ethylene glycol level greater than 40. One round of dialysis Hypertension <Lindsey Carrillo PA-C - Last Filed: 02/29/24 02:16> Surgical History Surgical History: Surgical History H/O arthroscopy of left knee H/O hernia repair H/O splenectomy H/O: hysterectomy History of back surgery X3 History of section, classical History of left shoulder replacement History of total right knee replacement (TKR) <Lindsey Carrillo PA-C - Last Filed: 02/29/24 02:16> Family History Family History: Family History Mother Family history of Alzheimer's disease Heart disease Father Family history of emphysema COPD (chronic obstructive pulmonary disease) <Lindsey Carrillo PA-C - Last Filed: 02/29/24 02:16> Social History Social History: Social History Social History: The patient was never . And she had twin boys. She lives in a custodial independent Living. She does not have a durable power inspector bicycle for healthcare. She is a full code. She never smoked. Does not use any alcohol or illicit drugs. However the patient states that she uses medical marijuana. She is disabled Smoking status: Never smoker Second hand tobacco smoke exposure: Yes Additional smoking assessment comments: only smoke marijuanna Alcohol intake: never Substance use: current Substance use type: marijuana Other substance usage details: For back pain once per week Last use: 02/27/24
[2024-02-28] MEDS: HYDROcodone/acetaminophen (*CRX) 5-325 MG TABLET 1 TAB PO (22:30)
[2024-02-28 22:37] LABS: Basophils Absolute Auto 0.1 K/mm3 (0.0-0.1); Basophils Percent Auto 0.7 % (0.2-1.2); Eosinophils Absolute Auto 0.2 K/mm3 (0-0.3); Eosinophils Percent Auto 1.1 % (0-4.4); Hematocrit 31.3 % (37.0-47.0); Hemoglobin 10.2 g/dL (12.0-15.0); Immature Granulocyte Absolute 0.09 K/mm3 (0.00-0.031); Immature Granulocyte Percent A 0.6 % (0-0.5); Lymphocytes Absolute Auto 3.95 K/mm3 (0.9-3.2); Lymphocytes Percent Auto 27.8 % (18.3-44.2); Mean Corpuscular HGB Conc 32.6 g/dl (32-36); Mean Corpuscular Hemoglobin 29.1 pg (26-34); Mean Corpuscular Volume 89.4 fl (80-100); Mean Platelet Volume 10.2 fl (7.4-10.4); Monocytes Absolute Auto 1.1 K/mm3 (0.1-0.6); Monocytes Percent Auto 7.8 % (2.6-8.5); Neutrophils Absolute Auto 8.8 K/mm3 (1.3-6.7); Platelet Count Result 503 k/mm3 (150-375); Red Cell Distribution Width 17.2 % (11.5-14.5); White Blood Count 14.2 K/mm3 (4.5-10.0)
[2024-02-28 22:48] LABS: Lactic Acid Reflex 1.9 mmol/L (0.7-2.0)
[2024-02-28 22:50] LABS: Anion Gap 9 mmol/L (4-12); Blood Urea Nitrogen 19 mg/dL (7-17); CRP < 0.5 mg/dL (<1.0); Calcium 8.6 mg/dL (8.4-10.2); Carbon Dioxide 29 mmol/L (22-30); Chloride 95 mmol/L (98-107); Estimated CRCL calculation 77 ml/min; Estimated Glomerular Filt Rate > 60; Glucose 302 mg/dL (65-110); Potassium 3.6 mmol/L (3.4-5.0); Sodium 133 mmol/L (137-145)
[2024-02-28 23:13] LABS: Anisocytosis 1+; Platelet Estimate Increased (Adequate)
[2024-02-28 23:14] LABS: Schistocytes Rare
[2024-02-29 00:38] LABS: Erythrocyte Sedimentation Rate 21 mm/hr (0-20)
--- NOTE | 2024-02-29 02:05 | PM.IMHP ---
H&P: HPI History of Present Illness Date/Time: 02/29/24 02:05 Chief Complaint: R foot cellulitis Narrative: This is a 74-year-old female with past medical history significant for diabetes, dyslipidemia, hypertension, splenectomy. Patient comes to the emergency room due to right foot swelling, warmth, tenderness, redness for the last 3 days or so patient just recently discharged and sent home on doxycycline and amoxicillin for left foot the cellulitis and abscess status post I&D patient has been following up in outpatient setting with wound care. Patient denies any fevers, rigors, chills, nausea, vomiting however has had poor appetite poor per orally intake. Patient has been admitted for further evaluation management and treatment. XR foot RT min 3V DATE: 02/28/2024 21:56 INDICATION: Erythema, edema TECHNIQUE: 3 views COMPARISON: None FINDINGS: There is osteopenia. Mild plantar calcaneal enthesopathy. Mild osteoarthritis at the first metatarsophalangeal joint. No fracture, dislocation, periosteal reaction or bone destruction is detected. IMPRESSION: Osteopenia Mild plantar calcaneal enthesopathy Mild osteoarthritis of first metatarsophalangeal joint Review of Systems Review of Systems: right foot swelling, tenderness, warmth, redness PMFSH Past Medical History Medical History (Updated 02/29/24 @ 01:57 by Lindsey Carrilol PA-C) Anxiety Chronic pain Chronic, continuous use of opioids Depression DM2 (diabetes mellitus, type 2) History of diabetes mellitus History of hyperlipidemia History of hypertension History of suicide attempt With ethylene glycol level greater than 40. 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 And she had twin boys. She lives in a jail independent Living. She does not have a durable power chimney supervisor brick for healthcare. She is a full code. She never smoked. Does not use any alcohol or illicit drugs. However the patient states that she uses medical marijuana. She is disabled Smoking status: Never smoker Second hand tobacco smoke exposure: Yes Additional smoking assessment comments: only smoke grisel Alcohol intake: never Substance use: current Substance use type: marijuana Other substance usage details: For back pain once per week Last use: 02/27/24 Do You Feel Safe in your Home?: Yes Lack of Transportation: No Lack of Food: Never True Current Housing: I Have Housing Concerned About Future Housing: No Difficulty Paying Gas/Electric Bills: No Difficulty Paying for Meds: No Currently Unemployed: No Education: High School Diploma/GED Difficulty w/ Childcare or Family Care: No Living arrangements: alone Occupation/Education: other Additional occupation/education comments: Disability Gender identity (if verbalized by the patient): Female Spiritual care concerns: No Meds Home Medications and Allergies Home Medications Medication Instructions Recorded Confirmed Type atorvastatin 80 mg tablet 80 mg PO HS 11/16/19 02/29/24 History metformin 1,000 mg tablet 1,000 mg PO BID 11/16/19 02/29/24 History tramadol 50 mg tablet 50 mg PO PRN PRN Pain (Scale Score 11/16/19 02/29/24 History 4-6) esomeprazole magnesium 40 mg 40 mg PO Q12H #60 caps
[2024-02-29 02:15] VITALS: BP 148/87; PULSE 70; RESP 17; O2SAT 99
[2024-02-29] MEDS: CEFEPIME 2 GM/NS 50 ML 2 GM/50 ML BAG IVPB ×2 (02:16→13:31)
[2024-02-29] MEDS: HYDROcodone/acetaminophen (*CRX) 5-325 MG TABLET 1 TAB PO (02:20)
[2024-02-29] MEDS: SODIUM CHLORIDE 0.9% IV 1,000 ML 999 ML IV CONT (02:23)
[2024-02-29] MEDS: metroNIDAZOLE 500 MG/ISO 100ML 500 MG/100 ML BAG 100 MG IVPB ×3 (02:46→17:08)
[2024-02-29 03:17] VITALS: BMI 18.3
--- NOTE | 2024-02-29 03:24 | ADMGEN ---
This patient, Li De Los Santos, was admitted to [facility] Surg Room 312-01. Patient/family oriented to hospital policies and general routines including ID bracelet, bed and alarms, visiting hours, pain management, procedures, bathroom and other care routines, personal items, smoking policy, room service/diet, and visiting hours. Information on how to activate the Rapid Response Team has been discussed. Patient/Family are encouraged to report perceived risks to care and to ask questions if they do not understand what they are told or what they should do.
[2024-02-29 03:32] VITALS: BP 176/92; PULSE 75; RESP 18; TEMP 36.9; O2SAT 99
[2024-02-29] MEDS: VANCOMYCIN 1,250 MG/NS 250 ML 1,250 MG/250 ML BAG 166.67 MG IVPB (03:55)
[2024-02-29 06:00] VITALS: BP 125/73; PULSE 77; RESP 18; TEMP 35.7; O2SAT 98
[2024-02-29] MEDS: HYDROmorphone HCL INJ (*CRX) 1 MG/ML SYR IV PUSH (06:07)
[2024-02-29 07:53] LABS: Glucose Point of Care 232 mg/dl (65-105)
--- NOTE | 2024-02-29 08:31 | PM.IMPN ---
Progress Note: A&P Assessment and Plan (1) Sepsis: Qualifiers: Sepsis acute organ dysfunction status: without acute organ dysfunction Sepsis type: sepsis due to unspecified organism Qualified Code(s): A41.9 - Sepsis, unspecified organism Code(s): A41.9 - Sepsis, unspecified organism Status: Acute Assessment and Plan: Meets SIRS criteria: - lactic acid: 1.9 - suspected source: diabetic foot ulcer with cellulitis - blood cultures drawn on 02/27: pending - Right foot XR: Osteopenia Mild plantar calcaneal enthesopathy Mild osteoarthritis of first metatarsophalangeal joint - Right foot CT: No definite evidence for osteomyelitis. MR or three-phase bone scan would be more sensitive for early osteomyelitis. Diffuse soft tissue swelling could reflect cellulitis versus bland edema. Correlate clinically. No abscess seen. - Antibiotics: Vanc, cefe, flagyl started on 02/27, patient has prior history of MRSA infection to the left foot within the last month (2) Cellulitis of right foot: Code(s): L03.115 - Cellulitis of right lower limb Status: Acute Assessment and Plan: - Right foot XR: Osteopenia Mild plantar calcaneal enthesopathy Mild osteoarthritis of first metatarsophalangeal joint - Right foot CT: No definite evidence for osteomyelitis. MR or three-phase bone scan would be more sensitive for early osteomyelitis. Diffuse soft tissue swelling could reflect cellulitis versus bland edema. Correlate clinically. No abscess seen. - Antibiotics: Vanc, cefe, flagyl started on 02/27, patient has prior history of MRSA infection to the left foot within the last month - Will hold off on obtaining a MRI at this time as patients foot appears to be improving with antibiotics and osteo concern is low (no open wounds, swelling/pain/redness improving) (3) Type 2 diabetes mellitus with left diabetic foot ulcer: Code(s): E11.621 - Type 2 diabetes mellitus with foot ulcer; L97.529 - Non-pressure chronic ulcer of other part of left foot with unspecified severity Status: Acute Assessment and Plan: - hypoglycemia protocol - POC blood glucose ACHS - home medication - metformin - correct regimen ordered - low dose SSI TIDWM and started on 7 units lantus HS as her blood sugars are currently not well controlled - Contributing factor is likely patients current infection, however her A1c was elevated and she will need medication adjustments at time of discharge - A1C 8.2 on 02/08/24 - peer educator consulted (4) Hypertension: Qualifiers: Hypertension type: essential hypertension Qualified Code(s): I10 - Essential (primary) hypertension Code(s): I10 - Essential (primary) hypertension Status: Chronic Assessment and Plan: Chronic, not on any medications. Monitor Subjective Date/time seen: 02/29/24 08:31 Interval history: 74-year-old woman with diabetes with peripheral neuropathy, hyperlipidemia, hypertension, depression, anxiety, and chronic pain presents to the hospital for right foot pain and swelling. Patient was recently admitted for similar symptoms of the left foot that required excisional debridement of calcaneal bursa left foot below fascia on 02/08/[address] Duke, wound cultures growing MRSA and patient DC on oral antibiotics. Patient is pleasant lying comfortably in bed. She states that since starting the antibiotics her foot has much improved. She continues to endorse pain with ambulation will start PT/OT. She remains on antibiotics at this time. Patient is on metformin for her diabetes at home. She was started on low dose SSI TIDWM here and this is not controlling her sugars at this time. Contributing factor is likely patients current infection, however her A1c was elevated to 8.2. She was started on 7 units lantus HS and we will continue to monitor. She will need medication adjustments at time of discharge. Review of Systems Review of
[2024-02-29] MEDS: PANTOPRAZOLE 40 MG TABLET PO ×2 (09:18→17:08)
[2024-02-29] MEDS: AMITRIPTYLINE HCL 25 MG TABLET 50 MG PO (09:18)
[2024-02-29] MEDS: oxyCODONE/ACETAMINOPHEN (*CRX) 10-325 MG TABLET 1 TAB PO ×2 (09:24→15:51)
[2024-02-29 09:26] LABS: Basophils Absolute Auto 0.1 K/mm3 (0.0-0.1); Basophils Percent Auto 0.8 % (0.2-1.2); Eosinophils Absolute Auto 0.2 K/mm3 (0-0.3); Eosinophils Percent Auto 1.7 % (0-4.4); Hemoglobin 9.6 g/dL (12.0-15.0); Immature Granulocyte Absolute 0.07 K/mm3 (0.00-0.031); Immature Granulocyte Percent A 0.6 % (0-0.5); Lymphocytes Absolute Auto 3.23 K/mm3 (0.9-3.2); Lymphocytes Percent Auto 26.7 % (18.3-44.2); Mean Corpuscular Hemoglobin 28.4 pg (26-34); Mean Corpuscular Volume 91.7 fl (80-100); Mean Platelet Volume 10.1 fl (7.4-10.4); Monocytes Absolute Auto 1.1 K/mm3 (0.1-0.6); Monocytes Percent Auto 8.9 % (2.6-8.5); Neutrophils Absolute Auto 7.4 K/mm3 (1.3-6.7); Neutrophils Percent Auto 61.3 % (45.5-73.1); Platelet Count Result 468 k/mm3 (150-375); Red Blood Count 3.38 M/mm3 (4.2-5.4); Red Cell Distribution Width 17.3 % (11.5-14.5); White Blood Count 12.1 K/mm3 (4.5-10.0)
[2024-02-29 09:37] LABS: Alanine Aminotransferase 13 U/L (6-35); Albumin Level 3.1 g/dL (3.5-5.1); Alkaline Phosphatase 68 U/L (38-126); Anion Gap 5 mmol/L (4-12); Aspartate Amino Transferase 21 U/L (14-36); Bilirubin,Total 0.2 mg/dL (0.2-1.3); Blood Urea Nitrogen 14 mg/dL (7-17); Calcium 7.7 mg/dL (8.4-10.2); Carbon Dioxide 27 mmol/L (22-30); Chloride 101 mmol/L (98-107); Estimated CRCL calculation 77 ml/min; Estimated Glomerular Filt Rate > 60; Glucose 223 mg/dL (65-110); Potassium 3.9 mmol/L (3.4-5.0); Sodium 133 mmol/L (137-145)
[2024-02-29 11:46] LABS: Glucose Point of Care 325 mg/dl (65-105)
[2024-02-29] MEDS: INSULIN ASPART (*BKC) 100 UNITS/ML SUB-Q ×2 (12:06→17:09)
[2024-02-29 14:00] VITALS: BP 119/76; PULSE 90; RESP 16; TEMP 36.4; O2SAT 92
[2024-02-29 16:54] LABS: Glucose Point of Care 380 mg/dl (65-105)
[2024-02-29] MEDS: INSULIN GLARGINE (*BKC) 100 UNITS/ML 7 UNITS SUB-Q (20:46)
[2024-02-29] MEDS: ATORVASTATIN 40 MG TABLET 80 MG PO (20:46)
[2024-02-29] MEDS: traMADol HCL (*CRX) 50 MG TABLET PO (20:46)
[2024-02-29] MEDS: VANCOMYCIN 1,000 MG/NS 250 ML 1,000 MG/250 ML BAG 250 MG IVPB (20:53)
[2024-02-29 20:56] LABS: Glucose Point of Care 263 mg/dl (65-105)
[2024-02-29 22:00] VITALS: BP 145/78; PULSE 88; RESP 20; TEMP 36.7; O2SAT 96
[2024-03-01] MEDS: CEFEPIME 2 GM/NS 50 ML 2 GM/50 ML BAG IVPB ×2 (02:06→13:05)
[2024-03-01] MEDS: metroNIDAZOLE 500 MG/ISO 100ML 500 MG/100 ML BAG 100 MG IVPB ×3 (02:07→16:59)
[2024-03-01] MEDS: oxyCODONE/ACETAMINOPHEN (*CRX) 10-325 MG TABLET 1 TAB PO ×5 (05:04→23:12)
[2024-03-01 06:00] VITALS: BP 150/99; PULSE 77; RESP 12; TEMP 36.7; O2SAT 94
--- NOTE | 2024-03-01 07:22 | PM.IMPN ---
Progress Note: A&P Assessment and Plan (1) Sepsis: Qualifiers: Sepsis acute organ dysfunction status: without acute organ dysfunction Sepsis type: sepsis due to unspecified organism Qualified Code(s): A41.9 - Sepsis, unspecified organism Code(s): A41.9 - Sepsis, unspecified organism Status: Acute Assessment and Plan: Meets SIRS criteria:WBC, HR, suspected source - lactic acid: 1.9 - suspected source: diabetic foot ulcer with cellulitis - blood cultures drawn on 02/27: NGTD - Right foot XR: Osteopenia Mild plantar calcaneal enthesopathy Mild osteoarthritis of first metatarsophalangeal joint - Right foot CT: No definite evidence for osteomyelitis. MR or three-phase bone scan would be more sensitive for early osteomyelitis. Diffuse soft tissue swelling could reflect cellulitis versus bland edema. Correlate clinically. No abscess seen. - Antibiotics: Vanc, cefe, flagyl started on 02/27, patient has prior history of MRSA infection to the left foot within the last month (2) Cellulitis of right foot: Code(s): L03.115 - Cellulitis of right lower limb Status: Acute Assessment and Plan: - Right foot XR: Osteopenia Mild plantar calcaneal enthesopathy Mild osteoarthritis of first metatarsophalangeal joint - Right foot CT: No definite evidence for osteomyelitis. MR or three-phase bone scan would be more sensitive for early osteomyelitis. Diffuse soft tissue swelling could reflect cellulitis versus bland edema. Correlate clinically. No abscess seen. - Antibiotics: Vanc, cefe, flagyl started on 02/27, patient has prior history of MRSA infection to the left foot within the last month - Will hold off on obtaining a MRI at this time as patients foot appears to be improving with antibiotics and osteo concern is low (no open wounds, swelling/pain/redness improving) (3) DM2 (diabetes mellitus, type 2): Qualifiers: Diabetes mellitus complication detail: with foot ulcer Diabetes mellitus complication status: with skin complications Diabetes mellitus shelter insulin use: without termite exterminator use Qualified Code(s): E11.621 - Type 2 diabetes mellitus with foot ulcer; L97.509 - Non-pressure chronic ulcer of other part of unspecified foot with unspecified severity Code(s): E11.9 - Type 2 diabetes mellitus without complications Status: Acute Assessment and Plan: - hypoglycemia protocol - POC blood glucose ACHS - home medication - metformin - correct regimen ordered - mod dose SSI TIDWM and started on 9 units lantus HS (0.2 units/kg) as her blood sugars are currently not well controlled - Contributing factor is likely patients current infection, however her A1c was elevated and she will need medication adjustments at time of discharge - A1C 8.2 on 02/08/24 - perinatal educator consulted (4) Hypertension: Qualifiers: Hypertension type: essential hypertension Qualified Code(s): I10 - Essential (primary) hypertension Code(s): I10 - Essential (primary) hypertension Status: Chronic Assessment and Plan: Chronic, not on any medications. Pain is likely a contributing factor, will continue to monitor and discussed this with patient to follow up with her PCP about. Monitor (5) Foot abscess, left: Code(s): L02.612 - Cutaneous abscess of left foot Status: Acute Assessment and Plan: Patient recenlty admitted for left foot abscess s/p debridement on 02.[address] Mcconnell. MRSA positive. Patient had a follow up appointment in office scheduled for 03/01 Dr. Mcconnell came to see patient during admission and her sutures were removed and wound was examined Time Spent With Patient Time with patient: 25 - 35 minutes Subjective Date/time seen: 03/01/24 07:22 Interval history: 74-year-old woman with diabetes with peripheral neuropathy, hyperlipidemia, hypertension, depression, anxiety, and chronic pain presents to the hospital for
[2024-03-01 07:41] LABS: Basophils Absolute Auto 0.1 K/mm3 (0.0-0.1); Basophils Percent Auto 0.8 % (0.2-1.2); Eosinophils Absolute Auto 0.2 K/mm3 (0-0.3); Eosinophils Percent Auto 1.7 % (0-4.4); Hematocrit 31.5 % (37.0-47.0); Hemoglobin 9.9 g/dL (12.0-15.0); Immature Granulocyte Absolute 0.08 K/mm3 (0.00-0.031); Immature Granulocyte Percent A 0.6 % (0-0.5); Lymphocytes Absolute Auto 3.25 K/mm3 (0.9-3.2); Lymphocytes Percent Auto 25.5 % (18.3-44.2); Mean Corpuscular HGB Conc 31.4 g/dl (32-36); Mean Corpuscular Hemoglobin 28.3 pg (26-34); Mean Platelet Volume 10.3 fl (7.4-10.4); Monocytes Absolute Auto 1.1 K/mm3 (0.1-0.6); Monocytes Percent Auto 8.9 % (2.6-8.5); Neutrophils Percent Auto 62.5 % (45.5-73.1); Platelet Count Result 450 k/mm3 (150-375); Red Cell Distribution Width 17.7 % (11.5-14.5); White Blood Count 12.7 K/mm3 (4.5-10.0)
[2024-03-01 07:48] LABS: Glucose Point of Care 208 mg/dl (65-105)
[2024-03-01 07:49] LABS: Alanine Aminotransferase 13 U/L (6-35); Alkaline Phosphatase 66 U/L (38-126); Anion Gap 5 mmol/L (4-12); Aspartate Amino Transferase 22 U/L (14-36); Bilirubin,Total 0.2 mg/dL (0.2-1.3); Blood Urea Nitrogen 18 mg/dL (7-17); Calcium 8.4 mg/dL (8.4-10.2); Carbon Dioxide 26 mmol/L (22-30); Chloride 102 mmol/L (98-107); Estimated CRCL calculation 77 ml/min; Estimated Glomerular Filt Rate > 60; Glucose 200 mg/dL (65-110); Potassium 3.7 mmol/L (3.4-5.0); Sodium 133 mmol/L (137-145)
[2024-03-01] MEDS: PANTOPRAZOLE 40 MG TABLET PO ×2 (08:57→16:59)
[2024-03-01] MEDS: INSULIN ASPART (*BKC) 100 UNITS/ML SUB-Q ×2 (08:57→17:00)
[2024-03-01] MEDS: AMITRIPTYLINE HCL 25 MG TABLET 50 MG PO (08:57)
[2024-03-01] MEDS: ENOXAPARIN 40 MG/0.4 ML SYRINGE SUB-Q (08:58)
[2024-03-01 11:00] VITALS: BMI 18.3
[2024-03-01 11:04] VITALS: BMI 18.3
[2024-03-01 11:42] LABS: Glucose Point of Care 142 mg/dl (65-105)
--- NOTE | 2024-03-01 13:06 | PCOTNOTE ---
On last admission in January, pt was to wear a fracture boot on her L foot when out of bed. Pt left that boot at home and will not have it brought in until tonight when family visits. Also waiting for ortho to see pt so will hold on OT evaluation until boot present.
--- NOTE | 2024-03-01 13:17 | PM.CNOR ---
Assessment and Plan Assessment and plan (1) Foot abscess, left: Code(s): L02.612 - Cutaneous abscess of left foot Status: Acute Assessment and Plan: 3 weeks status post I&D of the left heel. Patient has had home health for daily dressing changes. She has been packing her wound with Aquacel Ag rope and covering dry. She has been on oral antibiotics which were prescribed at discharge. She has not had follow-up. She failed to follow up with her orthopedist as she notified our office. Sutures removed today. Patient has a 1 cm depth wound on the plantar aspect of the left foot. No purulence, no malodor. Continue Aquacel Ag rope packing at this time. Covered dry. Patient would benefit from a reverse postop shoe for heel offloading. Continue to monitor. Continue daily dressing changes. Continue offloading. Patient may eventually benefit from a total contact cast application. May be done as an outpatient in the [facility]. (2) Cellulitis of right foot: Code(s): L03.115 - Cellulitis of right lower limb Status: Acute Assessment and Plan: Patient presents with new complaints of right foot pain and swelling. She denies injury however she has ecchymosis to the forefoot and swelling on the dorsum of the right foot. No open wounds. Radiographs and CT of the right foot negative. Agree with IV antibiotics at this time. Continue to monitor. Pain control. Mobilize with PT and OT. History of Present Illness HPI Consult date: 03/01/24 Chief complaint: Cellulitis Narrative: 74-year-old female, known to our orthopedic service for a recent left foot infection with deep abscess to left calcaneus s/p stepping on a piece of glass. She underwent an I & D of the left foot abscess on 02/[address] Duke. She failed to follow up in our office as she determine she would be seen by her typical orthopedist, Dr. Pantoja. Her wound culture at that time was positive for MRSA. All records were previously faxed to Dr. Pantoja from our office. Patient reports that she did not end up following up with him and she has not been seen at our office in the interim. She still has sutures in place. Orthopedic consult today for inquiry on when left heel sutures should be removed. She is admitted due to right foot pain and swelling. She was concerned a similar situation was happening to her right foot. Review of Systems Review of Systems: All systems reviewed & are unremarkable except as noted in HPI and below PMFSH Past Medical History Medical History Anxiety Chronic pain Chronic, continuous use of opioids Depression DM2 (diabetes mellitus, type 2) History of diabetes mellitus History of hyperlipidemia History of hypertension History of suicide attempt With ethylene glycol level greater than 40. 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 And she had twin boys. She lives in a half-way independent Living. She does not have a durable power banking attorney for healthcare. She is a full code. She never smoked. Does not use any alcohol or illicit drugs. However the patient states that she uses medical marijuana. She is disabled Smoking status: Never smoker Second hand tobacco smoke exposure:
--- NOTE | 2024-03-01 13:21 | PCPTNOTE ---
Waiting on ortho consult prior to PT evaluation. Will follow
[2024-03-01 14:00] VITALS: BP 133/75; PULSE 88; RESP 16; TEMP 36.3; O2SAT 94
[2024-03-01 14:34] LABS: Vancomycin Trough 7.7 ug/mL (10.0-20.0)
[2024-03-01] MEDS: VANCOMYCIN 1,250 MG/NS 250 ML 1,250 MG/250 ML BAG 166.67 MG IVPB (15:22)
[2024-03-01 16:31] LABS: Glucose Point of Care 249 mg/dl (65-105)
[2024-03-01 20:00] VITALS: PULSE 88; RESP 16; O2SAT 94
[2024-03-01] MEDS: ATORVASTATIN 40 MG TABLET 80 MG PO (20:16)
[2024-03-01 20:17] LABS: Glucose Point of Care 310 mg/dl (65-105)
[2024-03-01] MEDS: INSULIN GLARGINE (*BKC) 100 UNITS/ML 9 UNITS SUB-Q (20:17)
[2024-03-01 22:00] VITALS: BP 124/69; PULSE 82; RESP 20; TEMP 37.3; O2SAT 97
[2024-03-02] MEDS: metroNIDAZOLE 500 MG/ISO 100ML 500 MG/100 ML BAG 100 MG IVPB ×2 (00:55→09:29)
[2024-03-02] MEDS: SODIUM CHLORIDE 0.9% IV 100 ML (01:03)
[2024-03-02] MEDS: CEFEPIME 2 GM/NS 50 ML 2 GM/50 ML BAG IVPB (02:23)
[2024-03-02] MEDS: oxyCODONE/ACETAMINOPHEN (*CRX) 10-325 MG TABLET 1 TAB PO ×2 (03:05→09:22)
[2024-03-02] MEDS: VANCOMYCIN 1,250 MG/NS 250 ML 1,250 MG/250 ML BAG 166 MG IVPB (03:05)
[2024-03-02 05:59] VITALS: BP 126/71; PULSE 69; RESP 20; TEMP 36.3; O2SAT 95
[2024-03-02 07:16] LABS: Hematocrit 32.7 % (37.0-47.0); Hemoglobin 10.3 g/dL (12.0-15.0); Mean Corpuscular HGB Conc 31.5 g/dl (32-36); Mean Corpuscular Hemoglobin 28.1 pg (26-34); Mean Corpuscular Volume 89.1 fl (80-100); Platelet Count Result 458 k/mm3 (150-375); Red Blood Count 3.67 M/mm3 (4.2-5.4); Red Cell Distribution Width 17.4 % (11.5-14.5); White Blood Count 13.9 K/mm3 (4.5-10.0)
[2024-03-02 07:17] LABS: Basophils Absolute Auto 0.1 K/mm3 (0.0-0.1); Basophils Percent Auto 0.7 % (0.2-1.2); Eosinophils Absolute Auto 0.2 K/mm3 (0-0.3); Eosinophils Percent Auto 1.7 % (0-4.4); Immature Granulocyte Percent A 0.7 % (0-0.5); Lymphocytes Absolute Auto 3.63 K/mm3 (0.9-3.2); Lymphocytes Percent Auto 26.1 % (18.3-44.2); Mean Platelet Volume 10.1 fl (7.4-10.4); Monocytes Absolute Auto 1.3 K/mm3 (0.1-0.6); Monocytes Percent Auto 9.3 % (2.6-8.5); Neutrophils Absolute Auto 8.6 K/mm3 (1.3-6.7); Neutrophils Percent Auto 61.5 % (45.5-73.1)
[2024-03-02 07:46] LABS: Glucose Point of Care 200 mg/dl (65-105)
[2024-03-02 07:51] LABS: Alanine Aminotransferase 15 U/L (6-35); Albumin Level 3.3 g/dL (3.5-5.1); Alkaline Phosphatase 76 U/L (38-126); Anion Gap 5 mmol/L (4-12); Aspartate Amino Transferase 27 U/L (14-36); Bilirubin,Total 0.2 mg/dL (0.2-1.3); Blood Urea Nitrogen 15 mg/dL (7-17); Calcium 8.3 mg/dL (8.4-10.2); Carbon Dioxide 25 mmol/L (22-30); Chloride 103 mmol/L (98-107); Estimated CRCL calculation 77 ml/min; Estimated Glomerular Filt Rate > 60; Glucose 210 mg/dL (65-110); Potassium 4.1 mmol/L (3.4-5.0); Sodium 133 mmol/L (137-145)
[2024-03-02] MEDS: AMITRIPTYLINE HCL 25 MG TABLET 50 MG PO (09:21)
[2024-03-02] MEDS: PANTOPRAZOLE 40 MG TABLET PO (09:23)
[2024-03-02] MEDS: ENOXAPARIN 40 MG/0.4 ML SYRINGE SUB-Q (09:23)
--- NOTE | 2024-03-02 10:52 | PCOTNOTE ---
Attempted to see pt. for occupational therapy evaluation. Pt. unable to get boot from home delivered. Per Lyla Koehler, HAND WOVEN CARPET AND RUG MENDER, pt. may be toe-touch weight bearing ( TTWB) on L foot with wear of post-op shoe. Therapist ordered post-op shoe from [facility]. Nursing put in order for reverse post-op shoe to be fitted and ordered from [facility]. Awaiting arrival of post op shoe and WB orders to be entered prior to completing evaluation.
[2024-03-02 11:31] LABS: Glucose Point of Care 229 mg/dl (65-105)
[2024-03-02] MEDS: INSULIN ASPART (*BKC) 100 UNITS/ML SUB-Q (12:17)
--- NOTE | 2024-03-02 12:28 | PM.DS ---
DS: Admitting Diagnosis Discharge Date 03/02/2024 Admitting Diagnosis sepsis cellulitis of right foot DM2 HTN Foot abscess left DS: Discharge Diagnosis Discharge Diagnosis (1) Sepsis: Qualifiers: Sepsis acute organ dysfunction status: without acute organ dysfunction Sepsis type: sepsis due to unspecified organism Qualified Code(s): A41.9 - Sepsis, unspecified organism Code(s): A41.9 - Sepsis, unspecified organism Status: Acute (2) Cellulitis of right foot: Code(s): L03.115 - Cellulitis of right lower limb Status: Acute (3) DM2 (diabetes mellitus, type 2): Qualifiers: Diabetes mellitus complication detail: with foot ulcer Diabetes mellitus complication status: with skin complications Diabetes mellitus ferry terminal supervisor insulin use: without ferry terminal supervisor use Qualified Code(s): E11.621 - Type 2 diabetes mellitus with foot ulcer; L97.509 - Non-pressure chronic ulcer of other part of unspecified foot with unspecified severity Code(s): E11.9 - Type 2 diabetes mellitus without complications Status: Acute (4) Hypertension: Qualifiers: Hypertension type: essential hypertension Qualified Code(s): I10 - Essential (primary) hypertension Code(s): I10 - Essential (primary) hypertension Status: Chronic (5) Foot abscess, left: Code(s): L02.612 - Cutaneous abscess of left foot Status: Acute DS: Summary Hospital Course Reason for hospitalization: sepsis cellulitis of right foot DM2 HTN Foot abscess left Hospital Course: 74-year-old woman with diabetes with peripheral neuropathy, hyperlipidemia, hypertension, depression, anxiety, and chronic pain presents to the hospital for right foot pain and swelling. Patient was recently admitted for similar symptoms of the left foot that required excisional debridement of calcaneal bursa left foot below fascia on 02/08/[address] Duke, wound cultures growing MRSA and patient DC on 02/10 with oral antibiotics. During admission patient was meeting sepsis requirements with leukocytosis, tachycardia and suspected source being cellulitis of the right foot. Blood cultures were drawn showing NGTD. Patient was started on vancomycin, cefepime and flagyl. A Right foot XR showed Osteopenia, Mild plantar calcaneal enthesopathy, and Mild osteoarthritis of first metatarsophalangeal joint. A right foot CT showed no evidence of osteomyelitis with diffuse soft tissue swelling could reflect cellulitis vs bland edema. Patients cellulitis resolved during admission, she is no longer having pain, redness, or swelling of the right foot. She transitioned to doxycycline and keflex at time of discharge. During admission ortho was consulted as patient still had sutures in place from a prior I&D of the left foot. Sutures were removed on 03/01. Patient is to remain toe touch weight bearing off heel with fracture boot of the left foot per ortho. She is to follow up in wound care clinic on Saturday March 09, 2024 at 8:00AM. Patient states understanding and will continue this with home health. Patient was noted to be hyperglycemic during admission with A1c 8.2, started on lantus 9 units. museum educator was consulted and she was in contact with patients PCP who states patient is to be on faxiga 10 mg daily with her metformin. Discussed this with patient and reordered farxiga. Patient states understanding and is to follow up with her PCP. Prior to discharge patient denied chest pain, shortness of breath, nausea/vomiting and abdominal pain. She states she is at her baseline ambulation that she has been at with home health. Patient discharged home with home health in a stable condition. She is to continue her antibiotics as prescribed and follow up with her PCP in regards to her diabetes. Patient is to also follow up as scheduled in the wound clinic. Status at Discharge Functional status at discharge: uses cane/walker Time Spent with Patient Time attestation:
--- NOTE | 2024-03-02 13:16 | PM.PNORT ---
Progress Note: A&P Assessment and Plan (1) Foot abscess, left: Code(s): L02.612 - Cutaneous abscess of left foot Status: Acute Assessment and Plan: 3 weeks status post I&D of the left heel. Patient has had home health for daily dressing changes. She has been packing her wound with Aquacel Ag rope and covering dry. She has been on oral antibiotics which were prescribed at discharge. She has not had follow-up. She failed to follow up with her orthopedist as she notified our office. Patient has a 1 cm depth wound on the plantar aspect of the left foot. No purulence, no malodor. Continue Aquacel Ag rope packing at this time. Covered dry. Patient has been fit with a reverse postop shoe for heel offloading. Continue to monitor. Continue daily dressing changes. Continue offloading. Plan for TCC in the [facility] wound clinic next week. (2) Cellulitis of right foot: Code(s): L03.115 - Cellulitis of right lower limb Status: Acute Assessment and Plan: Patient presents with new complaints of right foot pain and swelling. She denies injury however she has ecchymosis to the forefoot and swelling on the dorsum of the right foot. No open wounds. Radiographs and CT of the right foot negative. Agree with IV antibiotics at this time. Continue to monitor. Pain control. Mobilize with PT and OT. Plan Reviewed history, exam, radiographs and current labs with attending MD and covering surgeon, Dr. Duke, who agrees with current plan as indicated above. No further recommendations from Dr. Duke at this time. Subjective Subjective Date/Time Seen: 03/02/24 13:16 Interval history: Patient doing well. Reports improvement in right foot pain. Plans for d/c today. Review of Systems Review of Systems: All systems reviewed & are unremarkable except as noted in HPI and below Exam Const: General: healthy appearing; No in distress or confusion Orientation/consciousness: oriented to person, oriented to place, oriented to time and No confusion HENMT: Head: normal to inspection, normocephalic and atraumatic Resp: Effort & Inspection: normal respiratory effort and no audible wheezes Cardio: Rhythm: regular rhythm Neuro: General: oriented to person, oriented to place, oriented to time and No confusion Extrem: Right upper extremity: normal to inspection Left upper extremity: normal to inspection Right lower extremity: ankle Details: normal to inspection, abnormal ROM Details: with range as follows (ankle dorsiflexion -10 degrees, plantar flexion 40?, inversion 15?, eversion 15?) and other ( good stability all directions); no tenderness, no swelling and no ecchymosis and foot Details: normal to inspection, toes with normal ROM, vascular exam Details: dorsalis pedis pulse present and normal capillary refill, tendon exam Details: active flexion abnormal and active extension abnormal, motor-sensory exam Details: two point discrimination abnormal Location: in all toes and light-touch abnormal Location: in all toes and other (Hallux metatarsophalangeal motion 20? dorsiflexion/10? plantar flexion) Left lower extremity: ankle Details: normal to inspection and abnormal ROM Details: with range as follows (ankle dorsiflexion -10 degrees, plantar flexion 40?, inversion 15?, eversion 15?); no tenderness and no swelling and foot Details: normal capillary refill, tenderness Location: of the calcaneus (Plantar heel) Details: point tenderness and with squeeze, abnormal ROM of toe, vascular exam (2+DP pulse, good cap refill all toes), tendon exam active flexion abnormal of the great toe and active extension abnormal of the great toe, motor-sensory exam two point discrimination abnormal and light-touch abnormal in all toes and other; no crepitus Other: Dressing in place left foot. Clean and dry Psych: Affect: normal affect Objective Data Vital Signs Vital Signs: Vital Signs - 24 hr 03/01/24 14:00 03/01/24 20:00 03/01/24
--- NOTE | 2024-03-12 14:36 | PCCDE ---
03/12/24 2:30 pm Pt answered phone on courtesy DM follow up call. She hadn't started the Farxiga although reports to picking it up. -- Explained works in a different way in addition to the Metformin to help get glucose controlled. -- Pt states she'll start taking it. Reportedly has PCP appt x 1 wk and follow up wound care x 2 wks Declines MNT/DSMT outpatient at this time. FJ
== END 2024-03-02 13:12 | disposition home health service (06) | DRG 872 ==
LOC: ANHED 02-29 02:16 → ANH3MEDSUR 02-29 02:44
PROVIDERS: Admitting Provider Internal Medicine; Emergency Provider Physician Assistant; PCP Nurse Practitioner Family; Visit Provider Student in an Organized Health Care Education/Training Program
DX: A41.9 Sepsis, unspecified organism (principal); L03.115 Cellulitis of right lower limb; E11.42 Type 2 diabetes mellitus with diabetic polyneuropathy; E78.5 Hyperlipidemia, unspecified; F32.A Depression, unspecified; F41.9 Anxiety disorder, unspecified; G89.29 Other chronic pain; I10 Essential (primary) hypertension; K21.9 Gastro-esophageal reflux disease without esophagitis; M85.871 Other specified disorders of bone density and structure, right ankle and foot; M77.9 Enthesopathy, unspecified; M19.071 Primary osteoarthritis, right ankle and foot; Z91.51 Personal history of suicidal behavior; Z79.84 Long term (current) use of oral hypoglycemic drugs; Z96.651 Presence of right artificial knee joint; Z96.612 Presence of left artificial shoulder joint
CPT/HCPCS: 36415; 73630; 73701; 80048; 80053; 80202; 82948; 83605; 85025; 85652; 86140; 87040; 96365; 96366; 96367; 96372; 96375; 96376; 99285; A9270; G0378; J0692; J1170; J1650; J1815; J1836; J3370; J7030; Q9967

== ENCOUNTER 2024-05-18 07:02 | Outpatient (RCR) | payer MEDICARE, MEDICAID, SELFPAY ==
[2024-03-09 08:00] VITALS: BMI 19.1
--- NOTE | 2024-03-09 08:57 | P.HP_ITS ---
H&P: HPI History of Present Illness Date/Time: 03/09/24 08:57 Chief Complaint: Left Foot DFU Right Foot Cellulitis Narrative: 74 year old female presents today in the [facility] wound clinic for f/u of the left DFU and right foot cellulitis. Patient performing daily dressing changes and has HH on board for assistance. No new concerns today. Review of Systems Review of Systems: All systems reviewed & are unremarkable except as noted in HPI and below PMFSH Past Medical History Medical History Anxiety Chronic pain Chronic, continuous use of opioids Depression DM2 (diabetes mellitus, type 2) History of diabetes mellitus History of hyperlipidemia History of hypertension History of suicide attempt With ethylene glycol level greater than 40. 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 And she had twin boys. She lives in a long term independent Living. She does not have a durable power director executive communications for healthcare. She is a full code. She never smoked. Does not use any alcohol or illicit drugs. However the patient states that she uses medical marijuana. She is disabled Smoking status: Never smoker Second hand tobacco smoke exposure: Yes Additional smoking assessment comments: only smoke marijuanna Alcohol intake: never Substance use: current Substance use type: marijuana Other substance usage details: For back pain once per week Last use: 02/27/24 Do You Feel Safe in your Home?: Yes Lack of Transportation: No Lack of Food: Never True Current Housing: I Have Housing Concerned About Future Housing: No Difficulty Paying Gas/Electric Bills: No Difficulty Paying for Meds: No Currently Unemployed: No Education: High School Diploma/GED Difficulty w/ Childcare or Family Care: No Living arrangements: alone Occupation/Education: other Additional occupation/education comments: Disability Gender identity (if verbalized by the patient): Female Spiritual care concerns: No Meds Home Medications and Allergies Home Medications Medication Instructions Recorded Confirmed Type atorvastatin 80 mg tablet 80 mg PO HS 11/16/19 02/29/24 History metformin 1,000 mg tablet 1,000 mg PO BID 11/16/19 02/29/24 History tramadol 50 mg tablet 50 mg PO PRN PRN Pain (Scale Score 11/16/19 02/29/24 History 4-6) esomeprazole magnesium 40 mg 40 mg PO Q12H #60 caps 04/29/23 02/29/24 Rx capsule,delayed release (Nexium) amitriptyline 50 mg tablet 50 mg PO DAILY 02/07/24 02/29/24 History oxycodone-acetaminophen 10 mg-325 1 tab PO Q6H PRN Pain Rated 7-10 02/11/24 02/29/24 Rx mg tablet #0 tabs cephalexin 500 mg capsule 500 mg PO Q6H 5 days #20 caps 03/02/24 Rx dapagliflozin propanediol 10 mg 10 mg PO DAILY #30 tabs 03/02/24 Rx tablet (Farxiga) doxycycline hyclate 100 mg tablet 100 mg PO Q12H 5 days #10 tabs 03/02/24 Rx Allergies Allergy/AdvReac Type Severity Reaction Status Date / Time influenza virus vaccine, Allergy Severe Hives / Verified 02/28/24 20:40 specific Red Face Exam Const: General: healthy appearing; No in distress or confusion Orientat ion/consciousness: oriented to person, oriented to place, oriented to time and No confusion HENMT: Head: normal to inspection, normocephalic and atraumatic Resp: Effort & Inspection: normal respiratory effort and no audible wheezes Cardio: Rhythm: regular rhythm Neuro: General: oriented to person, oriented to place, oriented to time and No confusion Extrem: Right upper extremity: normal to inspection Left upper extremity: normal to inspection Right lower extremity: ankle Details: normal to inspection, abnormal ROM Details: with range as follows (ankle dorsiflexion -10 degrees, plantar flexion 40?, inversion 15?, eversion 15?) and other ( good stability all directions); no tenderness, no swelling and no ecchymosis and foot Details: normal to inspection, toes with normal ROM, vascular exam Details: dorsalis pedis pulse present and normal capillary refill, tendon exam Details: active flexion abnormal and active extension abnormal, motor-sensory exam Details: two point discrimination abnormal Location: in all toes and light-touch abnormal Location: in all toes and other (Hallux metatarsophalangeal motion 20? dorsiflexion/10? plantar flexion) Left lower extremity: ankle Details: normal to inspection and abnormal ROM Details: with range as follows (ankle dorsiflexion -10 degrees, plantar flexion 40?, inversion 15?, eversion 15?); no tenderness and no swelling and foot Details: normal capillary refill, tenderness Location: of the calcaneus (Plantar heel) Details: point tenderness and with squeeze, abnormal ROM of toe, vascular exam (2+DP pulse, good cap refill all toes), tendon exam active flexion abnormal of the great toe and active extension abnormal of the great toe, motor-sensory exam two point discrimination abnormal and light-touch abnormal in all toes and other; no crepitus Other: Wound on the plantar aspect of the left foot measures 0.5x0.25x1.3cm with tunneling to the forefoot at 2cm. 100% red/pink wound bed. No signs of worsening infection. Psych: Affect: normal affect Assessment and Plan Assessment and plan (1) Foot abscess, left: Code(s): L02.612 - Cutaneous abscess of left foot Status: Acute Assessment and Plan: 4 weeks, 1 day status post I&D of the left heel. Patient has had home health for daily dressing changes. She has been packing her wound with Aquacel Ag rope and covering dry. She has been on oral antibiotics which were prescribed at discharge for her right foot cellulitis. Discussed TCC casting for additional pressure offloading but patient refuses. She is tolerating reverse post op shoe well. Add renata, continue Aquacel AG rope, cover dry. Follow up in 2 weeks for reevaluation. (2) Cellulitis of right foot: Code(s): L03.115 - Cellulitis of right lower limb Status: Acute Assessment and Plan: Continue antibiotics to completion. ADD tubigrip for swelling control. Post op shoe.
--- NOTE | 2024-03-23 08:41 | P.HP_ITS ---
H&P: HPI History of Present Illness Date/Time: 03/23/24 08:41 Chief Complaint: Left Foot DFU Right Foot Cellulitis Narrative: 74 year old female presents today in the [facility] wound clinic for f/u of the left DFU and right foot cellulitis. Patient performing daily dressing changes and has HH on board for assistance. No new concerns today. Review of Systems Review of Systems: All systems reviewed & are unremarkable except as noted in HPI and below PMFSH Past Medical History Medical History Anxiety Chronic pain Chronic, continuous use of opioids Depression DM2 (diabetes mellitus, type 2) History of diabetes mellitus History of hyperlipidemia History of hypertension History of suicide attempt With ethylene glycol level greater than 40. 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 And she had twin boys. She lives in a [facility]. She does not have a durable power deputy commonwealth's attorney for healthcare. She is a full code. She never smoked. Does not use any alcohol or illicit drugs. However the patient states that she uses medical marijuana. She is disabled Smoking status: Never smoker Second hand tobacco smoke exposure: Yes Additional smoking assessment comments: only smoke marijuanna Alcohol intake: never Substance use: current Substance use type: marijuana Other substance usage details: For back pain once per week Last use: 02/27/24 Do You Feel Safe in your Home?: Yes Lack of Transportation: No Lack of Food: Never True Current Housing: I Have Housing Concerned About Future Housing: No Difficulty Paying Gas/Electric Bills: No Difficulty Paying for Meds: No Currently Unemployed: No Education: High School Diploma/GED Difficulty w/ Childcare or Family Care: No Living arrangements: alone Occupation/Education: other Additional occupation/education comments: Disability Gender identity (if verbalized by the patient): Female Spiritual care concerns: No Meds Home Medications and Allergies Home Medications Medication Instructions Recorded Confirmed Type atorvastatin 80 mg tablet 80 mg PO HS 11/16/19 02/29/24 History metformin 1,000 mg tablet 1,000 mg PO BID 11/16/19 02/29/24 History tramadol 50 mg tablet 50 mg PO PRN PRN Pain (Scale Score 11/16/19 02/29/24 History 4-6) esomeprazole magnesium 40 mg 40 mg PO Q12H #60 caps 04/29/23 02/29/24 Rx capsule,delayed release (Nexium) amitriptyline 50 mg tablet 50 mg PO DAILY 02/07/24 02/29/24 History oxycodone-acetaminophen 10 mg-325 1 tab PO Q6H PRN Pain Rated 7-10 02/11/24 02/29/24 Rx mg tablet #0 tabs cephalexin 500 mg capsule 500 mg PO Q6H 5 days #20 caps 03/02/24 Rx dapagliflozin propanediol 10 mg 10 mg PO DAILY #30 tabs 03/02/24 Rx tablet (Farxiga) doxycycline hyclate 100 mg tablet 100 mg PO Q12H 5 days #10 tabs 03/02/24 Rx Allergies Allergy/AdvReac Type Severity Reaction Status Date / Time influenza virus vaccine, Allergy Severe Hives / Verified 02/28/24 20:40 specific Red Face Exam Const: General: healthy appearing; No in distress or confusion Orientat ion/consciousness: oriented to person, oriented to place, oriented to time and No confusion HENMT: Head: normal to inspection, normocephalic and atraumatic Resp: Effort & Inspection: normal respiratory effort and no audible wheezes Cardio: Rhythm: regular rhythm Neuro: General: oriented to person, oriented to place, oriented to time and No confusion Extrem: Right upper extremity: normal to inspection Left upper extremity: normal to inspection Right lower extremity: ankle Details: normal to inspection, abnormal ROM Details: with range as follows (ankle dorsiflexion -10 degrees, plantar flexion 40?, inversion 15?, eversion 15?) and other ( good stability all directions); no tenderness, no swelling and no ecchymosis and foot Details: normal to inspection, toes with normal ROM, vascular exam Details: dorsalis pedis pulse present and normal capillary refill, tendon exam Details: active flexion abnormal and active extension abnormal, motor-sensory exam Details: two point discrimination abnormal Location: in all toes and light-touch abnormal Location: in all toes and other (Hallux metatarsophalangeal motion 20? dorsiflexion/10? plantar flexion) Left lower extremity: ankle Details: normal to inspection and abnormal ROM Details: with range as follows (ankle dorsiflexion -10 degrees, plantar flexion 40?, inversion 15?, eversion 15?); no tenderness and no swelling and foot Details: normal capillary refill, tenderness Location: of the calcaneus (Plantar heel) Details: point tenderness and with squeeze, abnormal ROM of toe, vascular exam (2+DP pulse, good cap refill all toes), tendon exam active flexion abnormal of the great toe and active extension abnormal of the great toe, motor-sensory exam two point discrimination abnormal and light-touch abnormal in all toes and other; no crepitus Other: Wound on the plantar aspect of the left foot measures 0.5x0.7x1.0 cm with tunneling to the forefoot at 1.6 cm. 100% red/pink wound bed. No signs of worsening infection. Psych: Affect: normal affect Assessment and Plan Assessment and plan (1) Foot abscess, left: Code(s): L02.612 - Cutaneous abscess of left foot Status: Acute Assessment and Plan: 6 weeks, 1 day status post I&D of the left heel. Patient has had home health for daily dressing changes. She has been packing her wound with Aquacel Ag rope and covering dry. Wound with slow improvement. Patient would benefit from AmnioExcel grafting to expedite and assist in healing. Graft applied, tolerated well. Patient refused TCC casting for additional pressure offloading but patient refuses. Keep dressing intact x48 hours then resume daily dressing changes. Follow up in 2 weeks for reevaluation and repeat grafting. (2) Cellulitis of right foot: Code(s): L03.115 - Cellulitis of right lower limb Status: Acute Assessment and Plan: swelling improved. Procedure Note - Brief Procedure Note - Brief Date of procedure: 03/23/24 E11.621 Type 2 diabetes w/foot ulcer-Left foot Post-op diagnosis: Same Procedure performed: Amnioexcel Graft Application Surgeon: BRADFORD Puri Description of procedure: Graft procedure discussed at length with patient. Patient agrees to application. Wound measures 0.5x0.7x1.0 cm with tunneling to the forefoot at 1.6 cm. Wound prepped with alcohol solution. Amnioexcel graft applied under sterile cond itions. Graft then covered with Mepitel ONE and Xtrasorb dressing for graft protection. Patient educated on post graft application dressing instructions. Amnioexcel Graft Details: Tissue ID: [id number] Size: 1.5x1.5cm Product ID: [id number] Expiration Date: 12/21/27 Estimated blood loss (mL): 0 Total Tourniquet Time: 0 IV fluids (mL): 0 Urine output (mL): 0 Drains: No Packing: No Pathology: None sent Complications: No immediate complications Condition: Stable Disposition: Same day
--- NOTE | 2024-04-13 08:30 | PM.IMHP ---
H&P: HPI History of Present Illness Date/Time: 04/13/24 08:30 Chief Complaint: Left Foot DFU Right Foot Cellulitis Narrative: 74 year old female presents today in the [facility] wound clinic for f/u of the left DFU and right foot cellulitis. Patient performing daily dressing changes and has HH on board for assistance. Underwent grafting 3 weeks ago. Failed to follow up last week due to transportation issues. No new concerns today. Review of Systems Review of Systems: All systems reviewed & are unremarkable except as noted in HPI and below PMFSH Past Medical History Medical History Anxiety Chronic pain Chronic, continuous use of opioids Depression DM2 (diabetes mellitus, type 2) History of diabetes mellitus History of hyperlipidemia History of hypertension History of suicide attempt With ethylene glycol level greater than 40. 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 And she had twin boys. She lives in a intermediate independent Living. She does not have a durable power assistant prosecuting attorney for healthcare. She is a full code. She never smoked. Does not use any alcohol or illicit drugs. However the patient states that she uses medical marijuana. She is disabled Smoking status: Never smoker Second hand tobacco smoke exposure: Yes Additional smoking assessment comments: only smoke marijuanna Alcohol intake: never Substance use: current Substance use type: marijuana Other substance usage details: For back pain once per week Last use: 02/27/24 Do You Feel Safe in your Home?: Yes Lack of Transportation: No Lack of Food: Never True Current Housing: I Have Housing Concerned About Future Housing: No Difficulty Paying Gas/Electric Bills: No Difficulty Paying for Meds: No Currently Unemployed: No Education: High School Diploma/GED Difficulty w/ Childcare or Family Care: No Living arrangements: alone Occupation/Education: other Additional occupation/education comments: Disability Gender identity (if verbalized by the patient): Female Spiritual care concerns: No Meds Home Medications and Allergies Home Medications Medication Instructions Recorded Confirmed Type atorvastatin 80 mg tablet 80 mg PO HS 11/16/19 02/29/24 History metformin 1,000 mg tablet 1,000 mg PO BID 11/16/19 02/29/24 History tramadol 50 mg tablet 50 mg PO PRN PRN Pain (Scale Score 11/16/19 02/29/24 History 4-6) esomeprazole magnesium 40 mg 40 mg PO Q12H #60 caps 04/29/23 02/29/24 Rx capsule,delayed release (Nexium) amitriptyline 50 mg tablet 50 mg PO DAILY 02/07/24 02/29/24 History oxycodone-acetaminophen 10 mg-325 1 tab PO Q6H PRN Pain Rated 7-10 02/11/24 02/29/24 Rx mg tablet #0 tabs cephalexin 500 mg capsule 500 mg PO Q6H 5 days #20 caps 03/02/24 Rx dapagliflozin propanediol 10 mg 10 mg PO DAILY #30 tabs 03/02/24 Rx tablet (Farxiga) doxycycline hyclate 100 mg tablet 100 mg PO Q12H 5 days #10 tabs 03/02/24 Rx Allergies Allergy/AdvReac Type Severity Reaction Status Date / Time influenza virus vaccine, Allergy Severe Hives / Verified 02/28/24 20:40 specific Red Face Exam Const: General: healthy appearing; No in distress or confusion Orientation/consciousness: oriented to person, oriented to place, oriented to time and No confusion HENMT: Head: normal to inspection, normocephalic and atraumatic Resp: Effort & Inspection: normal respiratory effort and no audible wheezes Cardio: Rhythm: regular rhythm Neuro: General: oriented to person, oriented to place, oriented to time and No confusion Extrem: Right upper extremity: normal to inspection Left upper extremity: normal to inspection Right lower extremity: ankle Details: normal to inspection, abnormal ROM Details: with range as follows (ankle dorsiflexion -10 degrees, plantar flexion 40?, inversion 15?, eversion 15?) and other ( good stability all directions); no tenderness, no swelling and no ecchymosis and foot Details: normal to inspection, toes with normal ROM, vascular exam Details: dorsalis pedis pulse present and normal capillary refill, tendon exam Details: active flexion abnormal and active extension abnormal, motor-sensory exam Details: two point discrimination abnormal Location: in all toes and light-touch abnormal Location: in all toes and other (Hallux metatarsophalangeal motion 20? dorsiflexion/10? plantar flexion) Left lower extremity: ankle Details: normal to inspection and abnormal ROM Details: with range as follows (ankle dorsiflexion -10 degrees, plantar flexion 40?, inversion 15?, eversion 15?); no tenderness and no swelling and foot Details: normal capillary refill, tenderness Location: of the calcaneus (Plantar heel) Details: point tenderness and with squeeze, abnormal ROM of toe, vascular exam (2+DP pulse, good cap refill all toes), tendon exam active flexion abnormal of the great toe and active extension abnormal of the great toe, motor-sensory exam two point discrimination abnormal and light-touch abnormal in all toes and other; no crepitus Other: Wound on the plantar aspect of the left foot measures 0.5x0.5x4.0 cm with tunneling to the forefoot at 1.5 cm. 100% red/pink wound bed. No signs of worsening infection. Psych: Affect: normal affect Assessment and Plan Assessment and plan (1) Foot abscess, left: Code(s): L02.612 - Cutaneous abscess of left foot Status: Acute Assessment and Plan: 9 weeks, 1 day status post I&D of the left heel. 3 weeks s/p Amnioexcel grafting #1. Patient has had home health for daily dressing changes. She has been packing her wound with Aquacel Ag rope and covering dry. Wound with improvement s/p grafting. Patient would benefit from repeat AmnioExcel grafting to expedite and assist in healing. Graft applied, tolerated well. Patient refused TCC casting for additional pressure offloading but patient refuses. Keep dressing intact x48 hours then resume daily dressing changes. Follow up in 2.5 weeks for reevaluation and repeat grafting. (2) Cellulitis of right foot: Code(s): L03.115 - Cellulitis of right lower limb Status: Acute Assessment and Plan: Swelling resolved. Procedure Note - Brief Procedure Note - Brief Date of procedure: 04/13/24 E11.621 Type 2 diabetes w/foot ulcer-Left foot Post-op diagnosis: Same Procedure performed: Amnioexcel Graft Application Surgeon: BRADFORD Puri Description of procedure: Graft procedure discussed at length with patient. Patient agrees to application. Wound measures 0.5x0.5x1.0 cm with tunneling to the forefoot at 1.5 cm. Wound prepped with alcohol solution. Amnioexcel graft applied under sterile conditions. Graft then covered with Mepitel ONE and Xtrasorb dressing for graft protection. Patient educated on post graft application dressing instructions. Amnioexcel Graft Details: Tissue ID: [id number] Size: 2x3 cm Product ID: [id number] Expiration Date: 10/26/28 Estimated blood loss (mL): 0 Total Tourniquet Time: 0 IV fluids (mL): 0 Urine output (mL): 0 Drains: No Packing: No Pathology: None sent Complications: No immediate complications Condition: Stable Disposition: Same day
--- NOTE | 2024-04-30 09:10 | PM.IMHP ---
H&P: HPI History of Present Illness Date/Time: 04/30/24 09:10 Chief Complaint: Left Foot DFU Right Foot Cellulitis Narrative: 74 year old female presents today in the [facility] wound clinic for f/u of the left DFU and right foot cellulitis. Patient performing daily dressing changes and has HH on board for assistance. Underwent grafting 2 weeks ago. No new concerns today. Review of Systems Review of Systems: All systems reviewed & are unremarkable except as noted in HPI and below PMFSH Past Medical History Medical History Anxiety Chronic pain Chronic, continuous use of opioids Depression DM2 (diabetes mellitus, type 2) History of diabetes mellitus History of hyperlipidemia History of hypertension History of suicide attempt With ethylene glycol level greater than 40. 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 And she had twin boys. She lives in a residential independent Living. She does not have a durable power plumbing manager for healthcare. She is a full code. She never smoked. Does not use any alcohol or illicit drugs. However the patient states that she uses medical marijuana. She is disabled Smoking status: Never smoker Second hand tobacco smoke exposure: Yes Additional smoking assessment comments: only smoke marijuanna Alcohol intake: never Substance use: current Substance use type: marijuana Other substance usage details: For back pain once per week Last use: 02/27/24 Do You Feel Safe in your Home?: Yes Lack of Transportation: No Lack of Food: Never True Current Housing: I Have Housing Concerned About Future Housing: No Difficulty Paying Gas/Electric Bills: No Difficulty Paying for Meds: No Currently Unemployed: No Education: High School Diploma/GED Difficulty w/ Childcare or Family Care: No Living arrangements: alone Occupation/Education: other Additional occupation/education comments: Disability Gender identity (if verbalized by the patient): Female Spiritual care concerns: No Meds Home Medications and Allergies Home Medications Medication Instructions Recorded Confirmed Type atorvastatin 80 mg tablet 80 mg PO HS 11/16/19 02/29/24 History metformin 1,000 mg tablet 1,000 mg PO BID 11/16/19 02/29/24 History tramadol 50 mg tablet 50 mg PO PRN PRN Pain (Scale Score 11/16/19 02/29/24 History 4-6) esomeprazole magnesium 40 mg 40 mg PO Q12H #60 caps 04/29/23 02/29/24 Rx capsule,delayed release (Nexium) amitriptyline 50 mg tablet 50 mg PO DAILY 02/07/24 02/29/24 History oxycodone-acetaminophen 10 mg-325 1 tab PO Q6H PRN Pain Rated 7-10 02/11/24 02/29/24 Rx mg tablet #0 tabs cephalexin 500 mg capsule 500 mg PO Q6H 5 days #20 caps 03/02/24 Rx dapagliflozin propanediol 10 mg 10 mg PO DAILY #30 tabs 03/02/24 Rx tablet (Farxiga) doxycycline hyclate 100 mg tablet 100 mg PO Q12H 5 days #10 tabs 03/02/24 Rx Allergies Allergy/AdvReac Type Severity Reaction Status Date / Time influenza virus vaccine, Allergy Severe Hives / Verified 02/28/24 20:40 specific Red Face Exam Const: General: healthy appearing; No in distress or confusion Orientation/consciousness: oriented to person, oriented to place, oriented to time and No confusion HENMT: Head: normal to inspection, normocephalic and atraumatic Resp: Effort & Inspection: normal respiratory effort and no audible wheezes Cardio: Rhythm: regular rhythm Neuro: General: oriented to person, oriented to place, oriented to time and No confusion Extrem: Right upper extremity: normal to inspection Left upper extremity: normal to inspection Right lower extremity: ankle Details: normal to inspection, abnormal ROM Details: with range as follows (ankle dorsiflexion -10 degrees, plantar flexion 40?, inversion 15?, eversion 15?) and other ( good stability all directions); no tenderness, no swelling and no ecchymosis and foot Details: normal to inspection, toes with normal ROM, vascular exam Details: dorsalis pedis pulse present and normal capillary refill, tendon exam Details: active flexion abnormal and active extension abnormal, motor-sensory exam Details: two point discrimination abnormal Location: in all toes and light-touch abnormal Location: in all toes and other (Hallux metatarsophalangeal motion 20? dorsiflexion/10? plantar flexion) Left lower extremity: ankle Details: normal to inspection and abnormal ROM Details: with range as follows (ankle dorsiflexion -10 degrees, plantar flexion 40?, inversion 15?, eversion 15?); no tenderness and no swelling and foot Details: normal capillary refill, tenderness Location: of the calcaneus (Plantar heel) Details: point tenderness and with squeeze, abnormal ROM of toe, vascular exam (2+DP pulse, good cap refill all toes), tendon exam active flexion abnormal of the great toe and active extension abnormal of the great toe, motor-sensory exam two point discrimination abnormal and light-touch abnormal in all toes and other; no crepitus Other: Wound on the plantar aspect of the left foot measures 0.8x0.6x1.2 cm with tunneling to the forefoot at 1.9 cm. 100% red/pink wound bed. No signs of worsening infection. Psych: Affect: normal affect Assessment and Plan Assessment and plan (1) Foot abscess, left: Code(s): L02.612 - Cutaneous abscess of left foot Status: Acute Assessment and Plan: 11 weeks, 4 days status post I&D of the left heel. 2 weeks s/p Amnioexcel grafting #2. Patient has had home health for daily dressing changes. She has been packing her wound with Aquacel Ag rope and covering dry. Wound with improvement s/p grafting. Patient would benefit from repeat AmnioExcel grafting to expedite and assist in healing. Graft applied, tolerated well. Patient refused TCC casting for additional pressure offloading but patient refuses. Keep dressing intact x48 hours then resume daily dressing changes. Follow up in 2 weeks for reevaluation and repeat grafting. (2) Cellulitis of right foot: Code(s): L03.115 - Cellulitis of right lower limb Status: Acute Assessment and Plan: Recurrent swelling b/l LE. Faintly palpable pedal pulses. Recommended ABIs for blood flow evaluation. Plan Reviewed history, exam, radiographs and current labs with attending MD and covering surgeon, Dr. Duke, who agrees with current plan as indicated above. No further recommendations from Dr. Duke at this time.
--- NOTE | 2024-05-18 08:40 | P.HP_ITS ---
H&P: HPI History of Present Illness Date/Time: 05/18/24 08:40 Chief Complaint: Left Foot DFU Right Foot Cellulitis Narrative: 74 year old female presents today in the [facility] wound clinic for f/u of the left DFU and right foot cellulitis. Patient performing daily dressing changes and has HH on board for assistance. Underwent grafting 2 weeks ago. No new concerns today. Review of Systems Review of Systems: All systems reviewed & are unremarkable except as noted in HPI and below PMFSH Past Medical History Medical History Anxiety Chronic pain Chronic, continuous use of opioids Depression DM2 (diabetes mellitus, type 2) History of diabetes mellitus History of hyperlipidemia History of hypertension History of suicide attempt With ethylene glycol level greater than 40. 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 And she had twin boys. She lives in a nursing home independent Living. She does not have a durable power attorney general for healthcare. She is a full code. She never smoked. Does not use any alcohol or illicit drugs. However the patient states that she uses medical marijuana. She is disabled Smoking status: Never smoker Second hand tobacco smoke exposure: Yes Additional smoking assessment comments: only smoke marijuanna Alcohol intake: never Substance use: current Substance use type: marijuana Other substance usage details: For back pain once per week Last use: 02/27/24 Do You Feel Safe in your Home?: Yes Lack of Transportation: No Lack of Food: Never True Current Housing: I Have Housing Concerned About Future Housing: No Difficulty Paying Gas/Electric Bills: No Difficulty Paying for Meds: No Currently Unemployed: No Education: High School Diploma/GED Difficulty w/ Childcare or Family Care: No Living arrangements: alone Occupation/Education: other Additional occupation/education comments: Disability Gender identity (if verbalized by the patient): Female Spiritual care concerns: No Meds Home Medications and Allergies Home Medications Medication Instructions Recorded Confirmed Type atorvastatin 80 mg tablet 80 mg PO HS 11/16/19 02/29/24 History metformin 1,000 mg tablet 1,000 mg PO BID 11/16/19 02/29/24 History tramadol 50 mg tablet 50 mg PO PRN PRN Pain (Scale Score 11/16/19 02/29/24 History 4-6) esomeprazole magnesium 40 mg 40 mg PO Q12H #60 caps 04/29/23 02/29/24 Rx capsule,delayed release (Nexium) amitriptyline 50 mg tablet 50 mg PO DAILY 02/07/24 02/29/24 History oxycodone-acetaminophen 10 mg-325 1 tab PO Q6H PRN Pain Rated 7-10 02/11/24 02/29/24 Rx mg tablet #0 tabs cephalexin 500 mg capsule 500 mg PO Q6H 5 days #20 caps 03/02/24 Rx dapagliflozin propanediol 10 mg 10 mg PO DAILY #30 tabs 03/02/24 Rx tablet (Farxiga) doxycycline hyclate 100 mg tablet 100 mg PO Q12H 5 days #10 tabs 03/02/24 Rx Allergies Allergy/AdvReac Type Severity Reaction Status Date / Time influenza virus vaccine, Allergy Severe Hives / Verified 02/28/24 20:40 specific Red Face Exam Const: General: healthy appearing; No in distress or confusion Orientation/consciousness: oriented to person, oriented to place, oriented to time and No confusion HENMT: Head: normal to inspection, normocephalic and atraumatic Resp: Effort & Inspection: normal respiratory effort and no audible wheezes Cardio: Rhythm: regular rhythm Neuro: General: oriented to person, oriented to place, oriented to time and No confusion Extrem: Right upper extremity: normal to inspection Left upper extremity: normal to inspection Right lower extremity: ankle Details: normal to inspection, abnormal ROM Details: with range as follows (ankle dorsiflexion -10 degrees, plantar flexion 40?, inversion 15?, eversion 15?) and other ( good stability all directions); no tenderness, no swelling and no ecchymosis and foot Details: normal to inspection, toes with normal ROM, vascular exam Details: dorsalis pedis pulse present and normal capillary refill, tendon exam Details: active flexion abnormal and active extension abnormal, motor-sensory exam Details: two point discrimination abnormal Location: in all toes and light-touch abnormal Location: in all toes and other (Hallux metatarsophalangeal motion 20? dorsiflexion/10? plantar flexion) Left lower extremity: ankle Details: normal to inspection and abnormal ROM Details: with range as follows (ankle dorsiflexion -10 degrees, plantar flexion 40?, inversion 15?, eversion 15?); no tenderness and no swelling and foot Details: normal capillary refill, tenderness Location: of the calcaneus (Plantar heel) Details: point tenderness and with squeeze, abnormal ROM of toe, vascular exam (2+DP pulse, good cap refill all toes), tendon exam active flexion abnormal of the great toe and active extension abnormal of the great toe, motor-sensory exam two point discrimination abnormal and light-touch abnormal in all toes and other; no crepitus Other: Wound on the plantar aspect of the left foot now closed. Psych: Affect: normal affect Assessment and Plan Assessment and plan (1) Foot abscess, left: Code(s): L02.612 - Cutaneous abscess of left foot Status: Acute Assessment and Plan: 3 months status post I&D of the left heel. 2 weeks s/p Amnioexcel grafting #3. Wound is now closed. Recommended gel heel cups bilaterally. Patient not to transition out of shoe until heel cups are available. Recommended supportive shoes. Follow up as needed. (2) Cellulitis of right foot: Code(s): L03.115 - Cellulitis of right lower limb Status: Acute Assessment and Plan: Recurrent swelling b/l LE. Faintly palpable pedal pulses. Recommended ABIs for blood flow evaluation.
== END 2024-06-07 23:59 | disposition home or self-care (01) ==
LOC: ANHWOC 07:02
PROVIDERS: PCP Nurse Practitioner Family; Visit Provider Orthopaedic Surgery
DX: E11.621 Type 2 diabetes mellitus with foot ulcer (principal); L02.619 Cutaneous abscess of unspecified foot; L97.529 Non-pressure chronic ulcer of other part of left foot with unspecified severity
CPT/HCPCS: 15275; 99213; 99214; G0463; Q4137

== ENCOUNTER 2024-06-10 18:43 | Emergency (ER) | payer MEDICARE, MEDICAID, SELFPAY ==
[2024-06-10 18:49] VITALS: BP 144/73; PULSE 102; RESP 16; TEMP 36.6; O2SAT 100
--- NOTE | 2024-06-10 20:18 | ED_ITS ---
HPI - General Adult General Chief complaint: Unspecified Stated complaint: lip swelling Time Seen by Provider: 06/10/24 20:03 History of Present Illness HPI narrative: This is a 74-year-old female presenting with lip swelling. Starting 3 days ago she had redness and swelling of her lower lip. She was seen in her drink and prescribed Keflex. However the swelling has continued to get worse. It is very painful. There is purulent drainage. Patient denies fevers chills nausea vomiting diarrhea. No difficulty swallowing her own secretions or breathing. The pain in her lip has made it difficult to eat. Related Data Home Medications ?Medication ?Instructions ?Recorded ?Confirmed ?Last Taken ?Type atorvastatin 80 mg tablet 80 mg PO HS 11/16/19 02/29/24 04/28/23 History metformin 1,000 mg tablet 1,000 mg PO BID 11/16/19 02/29/24 04/28/23 History tramadol 50 mg tablet 50 mg PO PRN PRN Pain (Scale Score 11/16/19 02/29/24 04/29/23 History 4-6) amitriptyline 50 mg tablet 50 mg PO DAILY 02/07/24 02/29/24 Unknown History Allergies Allergy/AdvReac Type Severity Reaction Status Date / Time influenza virus vaccine, Allergy Severe Hives / Verified 02/28/24 20:40 specific Red Face PMFSH Past Medical History Medical History Anxiety Chronic pain Chronic, continuous use of opioids Depression DM2 (diabetes mellitus, type 2) History of diabetes mellitus History of hyperlipidemia History of hypertension History of suicide attempt With ethylene glycol level greater than 40. One round of dialysis Hypertension Surgical History Surgical History H/O arthroscopy of left knee H/O hernia repair H/O splenectomy H/O: hysterectomy History of back surgery X3 History of section, classical History of left shoulder replacement History of total right knee replacement (TKR) Family History Family History Mother Family history of Alzheimer's disease Heart disease Father Family history of emphysema COPD (chronic obstructive pulmonary disease) Social History Social History (Reviewed 05/18/24 @ 08:41 by RACH Puri Social History: The patient was never . And she had twin boys. She lives in a [facility]. She does not have a durable power commercial litigation attorney for healthcare. She is a full code. She never smoked. Does not use any alcohol or illicit drugs. However the patient states that she uses medical marijuana. She is disabled Smoking status: Never smoker Second hand tobacco smoke exposure: Yes Additional smoking assessment comments: only smoke marijuanna Alcohol intake: never Substance use: current Substance use type: marijuana Other substance usage details: For back pain once per week Last use: 02/27/24 Do You Feel Safe in your Home?: Yes Lack of Transportation: No Lack of Food: Never True Current Housing: I Have Housing Concerned About Future Housing: No Difficulty Paying Gas/Electric Bills: No Difficulty Paying for Meds: No Currently Unemployed: No Education: High School Diploma/GED Difficulty w/ Childcare or Family Care: No Living arrangements: alone Occupation/Education: other Additional occupation/education comments: Disability Gender identity (if verbalized by the patient): Female Spiritual care concerns: No Exam Narrative: APPEARANCE: No apparent distress. Head: Swelling of the lower lip with 2 central areas of fluctuance and purulent drainage EYES: EOMI, NOSE: Atraumatic NECK: Trachea midline RESPIRATORY: No increased rate of breathing CARDIOVASCULAR: RRR, ABDOMINAL: Non-distended MUSCULOSKELETAl: No obvious deformities NEURO: Alert. Moving 4/4 extremities SKIN:: Warm, dry. Normal color PSYCHIATRIC: Normal affect Course Vital Signs Vital signs: Vital Signs Temperature 97.9 F 06/10/24 18:49 Pulse Rate 102 H 06/10/24 18:49 Respiratory Rate 16 06/10/24 18:49 Blood Pressure 144/73 H 06/10/24 18:49 Pulse Oximetry 100 06/10/24 18:49 Temperature 97.9 F 06/10/24 18:49 Pulse Rate 102 H 06/10/24 18:49 Respiratory Rate 16 06/10/24 18:49 Blood Pressure 144/73 H 06/10/24 18:49 Pulse Oximetry 100 06/10/24 18:49 Procedures Abscess I/D lip: Date of Incision: 06/10/24 Side (if applicable): left and right Sedation/analgesia: none Local Anesthetic: lidocaine 1% and with epi Amount of anesthesia used (mL): 5 Technique: incised with #11 blade and probed loculations Amount of fluid expressed (mL): 3 Irrigation: No Packing used?: none I&D Results: Pus Medical Decision Making MDM Narrative Medical decision making narrative: -Course: 74-year-old female presenting with lower lip cellulitis with abscess. Incision and drainage was performed. No involvement the floor of the mouth or difficulty breathing or swallowing. Bactrim will be added to her Keflex. Discharged with return precautions. -DDX includes but is not limited to: lip cellulitis, lip abscess -Shared decision making / Disposition: discharge -RX Bactrim Motrin Tylenol Vital Signs Vital Signs: Vital Signs Temperature 97.9 F 06/10/24 18:49 Pulse Rate 102 H 06/10/24 18:49 Respiratory Rate 16 06/10/24 18:49 Blood Pressure 144/73 H 06/10/24 18:49 Pulse Oximetry 100 06/10/24 18:49 Temperature 97.9 F 06/10/24 18:49 Pulse Rate 102 H 06/10/24 18:49 Respiratory Rate 16 06/10/24 18:49 Blood Pressure 144/73 H 06/10/24 18:49 Pulse Oximetry 100 06/10/24 18:49 Discharge Plan Discharge Clinical Impression: Lip abscess Patient Disposition: Home, Self-Care Condition: Stable Instructions: Antibiotic Form, Abscess (ED) Additional Instructions: Please add bactrim and continue taking your keflex. Please take Motrin Tylenol for pain control. Return to ED he develops swelling inside her mouth, in the floor of her mouth, difficulty swallowing or secretions or trouble breathing. Follow-up with your primary care physician 2-3 days to ensure your condition is improving. Patient Language: Azeri Prescriptions: New ibuprofen 800 mg tablet 800 mg PO TID PRN (Reason: pain) 7 Days Qty: 21 0RF acetaminophen 500 mg tablet 1,000 mg PO TID PRN (Reason: josiah) 7 Days Qty: 42 0RF ibuprofen 600 mg tablet 600 mg PO TID PRN (Reason: pain) Qty: 21 0RF No Action atorvastatin 80 mg Tablet 80 mg PO HS tramadol 50 mg Tablet 50 mg PO PRN PRN (Reason: Pain (Scale Score 4-6)) Rx Instructions: Q6 PRN- for pain metformin 1,000 mg Tablet 1,000 mg PO BID esomeprazole magnesium [Nexium] 40 mg capsule,delayed release(DR/EC) 40 mg PO Q12H Qty: 60 12RF amitriptyline 50 mg tablet 50 mg PO DAILY oxycodone-acetaminophen 10-325 mg Tablet 1 tab PO Q6H PRN (Reason: Pain Rated 7-10) Qty: 0 0RF doxycycline hyclate 100 mg tablet 100 mg PO Q12H 5 Days Qty: 10 0RF cephalexin 500 mg capsule 500 mg PO Q6H 5 Days Qty: 20 0RF dapagliflozin propanediol [Farxiga] 10 mg tablet 10 mg PO DAILY Qty: 30 0RF Follow-up/Referrals: Linda,SACHIN Christianson [Primary Care Provider] -
[2024-06-10] MEDS: ACETAMINOPHEN 500 MG TABLET 1000 MG PO (20:24)
[2024-06-10] MEDS: SULFAMETHOXAZOLE/TRIMETHOPRIM 800/160 MG DS TABLET 1 TAB PO (20:24)
[2024-06-10] MEDS: IBUPROFEN 400 MG TABLET 800 MG PO (20:24)
[2024-06-10] MEDS: LIDO 1%/EPINEPHRINE 1:100,000 20 ML VIAL (20:24)
[2024-06-10 20:58] VITALS: BP 138/68; PULSE 99; RESP 17; O2SAT 100
== END 2024-06-10 21:00 | disposition home or self-care (01) ==
PROVIDERS: Emergency Provider Emergency Medicine; PCP Nurse Practitioner Family
DX: K13.0 Diseases of lips (principal); I10 Essential (primary) hypertension; E11.9 Type 2 diabetes mellitus without complications; E78.5 Hyperlipidemia, unspecified; G89.29 Other chronic pain; F41.9 Anxiety disorder, unspecified; F32.A Depression, unspecified; Z96.612 Presence of left artificial shoulder joint; Z96.651 Presence of right artificial knee joint; Z90.710 Acquired absence of both cervix and uterus; Z90.81 Acquired absence of spleen; Z79.84 Long term (current) use of oral hypoglycemic drugs; Z79.899 Other long term (current) drug therapy
CPT/HCPCS: 10061; 99283; A9270; J2004